=== PATIENT | male | born 1960 | race African-American/Black ===

== ENCOUNTER 2017-04-20 07:00 | Inpatient (IN) ==
[~2017-04-20 07:00] MED LIST: DEXTROSE 50% 25 GM/50 ML VIAL IV PRN; GLUCAGON 1 MG VIAL IM PRN
[2017-04-20] MEDS ORDERED: NITROGLYCERIN SL 0.4 MG TABLET SL PRN (09:15)
[2017-04-20] MEDS ORDERED: DEXTROSE 50% 25 GM/50 ML VIAL IV PRN (09:56)
[2017-04-20] MEDS ORDERED: GLUCAGON 1 MG VIAL IM PRN (09:56)
[2017-04-20 10:28] LABS: Basophils % 0.4 % (0.0-0.8); Eosinophils # 0.1 10*3/uL (0.0-0.87); Eosinophils % 1.4 % (0.00-10.9); Hematocrit 38.4 VOL% (42.0-52.0); Hemoglobin 13.3 GM/DL (14.0-18.0); Immature Granulocytes % 0.3 %; Immature Granulocytes Absolute 0.02 #; Lymphocytes # 2.2 10*3/uL (1.4-4.0); Lymphocytes % 27.9 % (21.2-54.2); Mean Corpuscular HGB Conc 34.6 GM/DL (32-36); Mean Corpuscular Hemoglobin 33 PG (27-34); Mean Corpuscular Volume 94.6 FL (87-102); Mean Platelet Volume 10.4 FL (9.6-12.0); Monocytes % 12.7 % (1.7-12.7); Neutrophils # 4.4 10*3/uL (1.4-7.4); Neutrophils % 57.3 % (38.7-73.9); Platelet Count 196 T/CUMM (130-400); Red Blood Count 4.06 MC/CUMM (3.8-5.5); Red Cell Distribution Width 13.7 % (9.3-17.3); White Blood Count 7.7 T/CUMM (4-12)
[2017-04-20 10:48] LABS: Allen Test Positive
[2017-04-20 10:49] LABS: ABG Base Excess -1.7 MMOL/L (-2.5-2.5); ABG Oxygen Saturation 96.7 % (95-100); ABG PCO2 38.3 MM HG (35-48); ABG PH 7.386 (7.35-7.45); ABG PO2 83.1 MM HG (80-95); ABG TCO2 20.1 MMOL/L (23-27)
[2017-04-20 10:58] LABS: Alanine Aminotransferase 29 U/L (16-61); Alkaline Phosphatase 102 U/L (45-117); Aspartate Amino Transferase 13 U/L (0-37); Bilirubin,Total < 0.39 MG/DL (0.2-1.0); Blood Urea Nitrogen 17 MG/DL (7-18); Calcium 8.2 MG/DL (8.5-10.1); Glucose 98 MG/DL (74-106); Osmolality,Calculated 278.5 MOS/KG (273-304); Potassium 3.8 MMOL/L (3.5-5.1); Sodium 139 MMOL/L (136-145); Total Protein 6.6 G/DL (6.4-8.3)
[2017-04-20] MEDS: LISINOPRIL 20 MG TABLET PO SCH (11:28)
[2017-04-20] MEDS: ASPIRIN EC 81 MG TABLET PO SCH (11:29)
[2017-04-20] MEDS: amLODIPine 10 MG TABLET PO SCH (11:29)
[2017-04-20] MEDS: CARVEDILOL 25 MG TABLET PO SCH ×2 (11:29→20:43)
[2017-04-20] MEDS: NICOTINE 21 MG/24 HR PATCH TRANSDERM SCH (11:30)
[2017-04-20] MEDS: CHLORHEXIDINE 0.12% ORAL RINSE 60 ML BOTTLE SWISH/SPIT SCH ×2 (11:31→20:43)
[2017-04-20] MEDS: ALBUTEROL/IPRATROPIUM 3 ML NEB RESP TX SCH ×2 (14:35→19:55)
[2017-04-20] MEDS ORDERED: LORazepam 1 MG TABLET PO ONE (15:07)
[2017-04-20] MEDS ORDERED: FAMOTIDINE 20 MG TABLET PO ONE (15:07)
[2017-04-20] MEDS: CHLORHEXIDINE 4% SOLN 118 ML BOTTLE TOP SCH ×2 (17:35→20:45)
[2017-04-20] MEDS ORDERED: ATORVASTATIN 80 MG TABLET PO SCH (21:00)
[2017-04-20] MEDS: NON-FORMULARY MEDICATION (Methylprednisolone Dosepak 4 MG) PO SCH (21:32)
[2017-04-20] MEDS: AZITHROMYCIN 250 MG TABLET PO SCH (21:32)
[2017-04-21] MEDS: ALBUTEROL/IPRATROPIUM 3 ML NEB RESP TX SCH ×2 (00:45→07:11)
[2017-04-21] MEDS ORDERED: PAPAVERINE 60 MG/2 ML VIAL ONE ×2 (04:35→15:06)
[2017-04-21] MEDS ORDERED: VANCOMYCIN 1,000 MG VIAL ONE ×2 (04:36→15:06)
[2017-04-21] MEDS ORDERED: ALBUTEROL/IPRATROPIUM 3 ML NEB RESP TX ONE (05:00)
[2017-04-21] MEDS ORDERED: FAMOTIDINE 20 MG TABLET PO ONE (05:30)
[2017-04-21] MEDS ORDERED: LORazepam 1 MG TABLET PO ONE (05:30)
[2017-04-21] MEDS: amLODIPine 10 MG TABLET PO SCH ×2 (05:53→10:45)
[2017-04-21] MEDS: CARVEDILOL 25 MG TABLET PO SCH ×2 (05:54→10:45)
[2017-04-21] MEDS: CHLORHEXIDINE 0.12% ORAL RINSE 60 ML BOTTLE SWISH/SPIT SCH ×3 (05:55→20:54)
[2017-04-21] MEDS ORDERED: CEFUROXIME INJ 1,500 MG in SODIUM CHLORIDE 0.9% 50 ML IV ONE (06:00)
[2017-04-21 07:44] LABS: ABG Base Excess -1.7 MMOL/L (-2.5-2.5); ABG PCO2 32.6 MM HG (35-48); ABG PH 7.433 (7.35-7.45); ABG TCO2 19.2 MMOL/L (23-27); Glucose Heart Surgery 102 MG/DL (74-106); Hematocrit Heart Surgery 36.7 PERCENT (42-52); Hemoglobin Heart Surgery 11.9 G/DL (14.0-18.0); Ionized Calcium Arterial 1.11 MMOL/L (1.21-1.46); PCO2 Patient Temp Arterial 32.6 MMHG; PH Patient Temp Arterial 7.433; Patient Temperature 37 CELCIUS; Potassium Heart/CVR 3.7 MMOL/L (3.5-5.1); Sodium Heart/CVR 137 MMOL/L (135-145)
[2017-04-21 08:07] LABS: Apearance,Urine CLEAR (Clear); Bilirubin,Urine Negative (Negative); Blood, Urine Small mg/dL (Negative); Glucose,Urine (UA) Negative (Negative); Ketones,Urine Negative (Negative); Mucus,Urine Occasional /LPF (Occasional); Nitrite,Urine Negative (Negative); Protein,Urine Negative; Urine Color Straw (Yellow); Urine Specific Gravity 1.005 (1.001-1.035); Urine Urobilinogen < 2.0 EU/DL (0.2-1.0)
[2017-04-21 08:55] LABS: Hemoglobin Heart Surgery 9.1 G/DL (14.0-18.0); PCO2 Patient Temp Venous 38.8 MM HG; PH Patient Temp Venous 7.415; PO2 Patient Temp Venous 43.6 MM HG; Potassium Heart/CVR 3.7 MMOL/L (3.5-5.1); VBG Base Excess -0.3 MEQ/L (0-4); VBG HCO3 24.8 MEQ/L (24-28); VBG Oxygen Saturation 85.8 %; VBG PCO2 42.3 MMHG (41-51); VBG PH 7.386; VBG PO2 50.2 MMHG (17-40)
[2017-04-21 09:22] LABS: Hemoglobin Heart Surgery 9.4 G/DL (14.0-18.0); PCO2 Patient Temp Venous 32.4 MM HG; PH Patient Temp Venous 7.497; PO2 Patient Temp Venous 35.8 MM HG; Potassium Heart/CVR 4.1 MMOL/L (3.5-5.1); VBG Base Excess 1.3 MEQ/L (0-4); VBG HCO3 25.3 MEQ/L (24-28); VBG Oxygen Saturation 82.9 %; VBG PH 7.452; VBG PO2 44.2 MMHG (17-40)
[2017-04-21] MEDS ORDERED: NITROPRUSSIDE 50 MG/2 ML VIAL ONE (09:40)
[2017-04-21] MEDS ORDERED: CALCIUM CHLORIDE 1,000 MG/10 ML SYRINGE IV ONE (09:41)
[2017-04-21] MEDS ORDERED: POTASSIUM CHLORIDE RIDER 100 ML IV ONE (09:41)
[2017-04-21] MEDS ORDERED: PHENYLEPHRINE DRIP 40 MG/250 ML PREMIX IV ONE (09:41)
[2017-04-21] MEDS ORDERED: ATROPINE 1 MG/1 ML VIAL ONE (09:42)
[2017-04-21] MEDS ORDERED: SODIUM BICARBONATE 50 MEQ/50 ML SYRINGE IV ONE ×2 (09:42→10:52)
[2017-04-21] MEDS ORDERED: EPINEPHrine 1 MG/10 ML SYRINGE ONE (09:42)
[2017-04-21] MEDS ORDERED: ALBUMIN 5% 12.5 GM/250 ML VIAL IV ONE (09:43)
[2017-04-21 09:52] LABS: Hemoglobin Heart Surgery 9.5 G/DL (14.0-18.0); PCO2 Patient Temp Venous 29.6 MM HG; PH Patient Temp Venous 7.519; PO2 Patient Temp Venous 35.7 MM HG; Potassium Heart/CVR 4.7 MMOL/L (3.5-5.1); VBG Base Excess 0.8 MEQ/L (0-4); VBG HCO3 24.2 MEQ/L (24-28); VBG Oxygen Saturation 85.3 %; VBG PCO2 33.8 MMHG (41-51); VBG PH 7.473; VBG PO2 44.1 MMHG (17-40)
[2017-04-21 10:44] LABS: ABG Base Excess -0.6 MMOL/L (-2.5-2.5); ABG HCO3 23.5 MMOL/L (20-26); ABG Oxygen Saturation 99.1 % (95-100); ABG PCO2 36.7 MM HG (35-48); ABG PH 7.425 (7.35-7.45); ABG PO2 334.6 MM HG (80-95); ABG TCO2 24.7 MMOL/L (23-27); Glucose Heart Surgery 151 MG/DL (74-106); Hemoglobin Heart Surgery 9.7 G/DL (14.0-18.0); Ionized Calcium Arterial 1.26 MMOL/L (1.21-1.46); PCO2 Patient Temp Arterial 36.7 MMHG; PH Patient Temp Arterial 7.425; PO2 Patient Temp Arterial 334.6 MM HG; Patient Temperature 37 CELCIUS; Sodium Heart/CVR 131 MMOL/L (135-145)
[2017-04-21] MEDS: SODIUM CHLORIDE 0.9% 1,000 ML IV SCH ×2 (10:44→10:46)
[2017-04-21] MEDS: ASPIRIN EC 81 MG TABLET PO SCH (10:45)
[2017-04-21] MEDS: NICOTINE 21 MG/24 HR PATCH TRANSDERM SCH (10:45)
[2017-04-21] MEDS: LISINOPRIL 20 MG TABLET PO SCH (10:45)
[2017-04-21] MEDS: AZITHROMYCIN 250 MG TABLET PO SCH (10:47)
[2017-04-21] MEDS: CHLORHEXIDINE 4% SOLN 118 ML BOTTLE TOP SCH (10:47)
[2017-04-21] MEDS: NON-FORMULARY MEDICATION (Methylprednisolone Dosepak 4 MG) PO SCH (10:47)
[2017-04-21] MEDS ORDERED: DEXTROSE 5% KCL 20 MEQ 20 MEQ/1,000 ML BAG IV ONE (10:51)
[2017-04-21] MEDS ORDERED: PROTAMINE SULFATE 250 MG/25 ML VIAL IV ONE (10:52)
[2017-04-21] MEDS ORDERED: MANNITOL 12.5 GM/50 ML VIAL IV ONE (10:52)
[2017-04-21] MEDS ORDERED: HEPARIN 10,000 UNIT/10 ML VIAL ONE (10:52)
[2017-04-21] MEDS ORDERED: methylPREDNISolone SOD SUC 1,000 MG/8 ML VIAL ONE (10:52)
[2017-04-21] MEDS ORDERED: ALBUMIN 25% 25 GM/100 ML VIAL IV ONE (10:52)
[2017-04-21] MEDS ORDERED: FUROSEMIDE 20 MG/2 ML VIAL ONE (10:52)
[2017-04-21] MEDS ORDERED: MAGNESIUM SULFATE 1 GM/2 ML VIAL ONE (10:52)
[2017-04-21] MEDS ORDERED: POTASSIUM CHLORIDE 20 MEQ/10 ML VIAL ONE (10:54)
[2017-04-21] MEDS ORDERED: THROMBIN TOPICAL (RECOMBINANT) 5,000 UNIT VIAL TOP ONE (11:06)
[2017-04-21] MEDS ORDERED: INSULIN REGULAR DRIP 100 ML IV ONE (11:19)
[2017-04-21] MEDS ORDERED: DOBUTamine 500 MG/250 ML PREMIX IV ONE ×2 (11:37→11:57)
[2017-04-21] MEDS: DOBUTamine 500 MG/250 ML PREMIX IV SCH (11:40)
[2017-04-21] MEDS: SODIUM CHLORIDE 0.45% 1,000 ML IV SCH ×2 (11:40→12:42)
[2017-04-21] MEDS ORDERED: PROTAMINE SULFATE 50 MG/5 ML VIAL IV ONE ×3 (11:50→17:30)
[2017-04-21] MEDS ORDERED: SUFentanil 250 MCG/5 ML AMP ONE (11:55)
[2017-04-21] MEDS: ALBUMIN 5% 12.5 GM in PREMIX 1 EACH IV PRN ×3 (11:55→20:22)
[2017-04-21] MEDS ORDERED: VECURONIUM 10 MG VIAL IV ONE ×2 (11:56→16:51)
[2017-04-21] MEDS ORDERED: ETOMIDATE 20 MG/10 ML VIAL IV ONE (11:56)
[2017-04-21] MEDS ORDERED: MIDAZOLAM 10 MG/2 ML VIAL ONE ×2 (11:56→16:51)
[2017-04-21] MEDS ORDERED: CALCIUM CHLORIDE 1,000 MG/10 ML VIAL IV ONE ×2 (11:57→16:50)
[2017-04-21] MEDS ORDERED: PHENYLEPHRINE DRIP 20 MG/250 ML PREMIX IV ONE (11:57)
[2017-04-21] MEDS ORDERED: HEPARIN/NACL 0.9% 2 UNITS/ML 500 ML IV ONE (11:57)
[2017-04-21] MEDS ORDERED: SODIUM CHLORIDE 0.9% 250 ML IV ONE (11:58)
[2017-04-21] MEDS ORDERED: SODIUM CHLORIDE 0.9% 1,000 ML IV ONE (11:58)
[2017-04-21] MEDS ORDERED: NITROGLYCERIN DRIP 50 MG/250 ML BOTTLE IV ONE (11:58)
[2017-04-21] MEDS ORDERED: SEVOFLURANE 1 UNIT/15 MINUTE INH ONE ×2 (11:58→16:50)
[2017-04-21] MEDS ORDERED: LACTATED RINGERS 1,000 ML IV ONE ×2 (11:58→16:51)
[2017-04-21] MEDS: LACTATED RINGERS 1,000 ML IV PRN ×3 (12:00→14:05)
[2017-04-21] MEDS ORDERED: MAGNESIUM SULF RIDER 4 GM in PREMIX 1 EACH IV PRN (12:01)
[2017-04-21] MEDS ORDERED: LACTATED RINGERS 250 ML IV PRN (12:01)
[2017-04-21] MEDS ORDERED: MORPHINE 10 MG/1 ML VIAL IV PRN (12:01)
[2017-04-21] MEDS ORDERED: INSULIN REGULAR 100 UNIT/ML IV PRN (12:01)
[2017-04-21] MEDS ORDERED: DEXTROSE 50% 25 GM/50 ML VIAL IV PRN ×3 (12:01→21:07)
[2017-04-21] MEDS ORDERED: INSULIN REGULAR DRIP 100 ML IV SCH (12:01)
[2017-04-21] MEDS ORDERED: MIDAZOLAM 10 MG/2 ML VIAL IV PRN (12:01)
[2017-04-21] MEDS ORDERED: ACETAMINOPHEN 650 MG SUPP RECTAL PRN (12:01)
[2017-04-21] MEDS ORDERED: POTASSIUM CHLORIDE RIDER 10 MEQ in PREMIX 1 EACH IV PRN (12:01)
[2017-04-21] MEDS ORDERED: CALCIUM CHLORIDE 1,000 MG/10 ML SYRINGE IV PRN (12:01)
[2017-04-21] MEDS ORDERED: PHENYLEPHRINE DRIP 40 MG/250 ML PREMIX IV PRN (12:01)
[2017-04-21] MEDS ORDERED: INSULIN REGULAR 100 UNIT/ML IV ONE ×2 (12:01→13:00)
[2017-04-21] MEDS ORDERED: NITROPRUSSIDE 100 MG in DEXTROSE 5% 250 ML IV PRN (12:01)
[2017-04-21] MEDS ORDERED: POTASSIUM CHLORIDE RIDER 20 MEQ in PREMIX 1 EACH IV PRN (12:01)
[2017-04-21] MEDS ORDERED: VECURONIUM 10 MG VIAL IV PRN ×2 (12:01)
[2017-04-21 12:23] LABS: ABG Base Excess -1.5 MMOL/L (-2.5-2.5); ABG HCO3 23.2 MMOL/L (20-26); ABG Oxygen Saturation 98.1 % (95-100); ABG PCO2 36.2 MM HG (35-48); ABG PH 7.408 (7.35-7.45); ABG PO2 98.5 MM HG (80-95); Basophils % 0.3 % (0.0-0.8); Eosinophils % 0.3 % (0.00-10.9); Glucose Heart Surgery 116 MG/DL (74-106); Hematocrit 25.8 VOL% (42.0-52.0); Hematocrit Heart Surgery 28.1 PERCENT (42-52); Hemoglobin 9.1 GM/DL (14.0-18.0); Immature Granulocytes % 0.7 %; Immature Granulocytes Absolute 0.08 #; Lymphocytes # 1.1 10*3/uL (1.4-4.0); Lymphocytes % 9.7 % (21.2-54.2); Mean Corpuscular HGB Conc 35.3 GM/DL (32-36); Mean Corpuscular Hemoglobin 34 PG (27-34); Mean Corpuscular Volume 95.2 FL (87-102); Mean Platelet Volume 10.6 FL (9.6-12.0); Monocytes # 0.5 10*3/uL (0.11-0.8); Monocytes % 3.9 % (1.7-12.7); Neutrophils % 85.1 % (38.7-73.9); Platelet Count 123 T/CUMM (130-400); Potassium Heart/CVR 4.2 MMOL/L (3.5-5.1); Red Blood Count 2.71 MC/CUMM (3.8-5.5); Red Cell Distribution Width 13.8 % (9.3-17.3); White Blood Count 11.7 T/CUMM (4-12)
[2017-04-21 12:28] LABS: INR 1.3; PT Patient Result 13.9 SECS
[2017-04-21 12:34] LABS: Partial Thromboplastin Time 40.3 SECS (0-40)
[2017-04-21 12:56] LABS: Albumin 2.6 G/DL (3.4-5.0); Bilirubin,Total 0.6 MG/DL (0.2-1.0); Calcium 8.4 MG/DL (8.5-10.1); Magnesium 1.9 MG/DL (1.8-2.4); Osmolality,Calculated 275.7 MOS/KG (273-304); Potassium 4.3 MMOL/L (3.5-5.1); Total Protein 4.7 G/DL (6.4-8.3)
[2017-04-21 13:34] LABS: CKMB % 8.8 %
[2017-04-21 13:36] LABS: Troponin I Only 5.1 NG/ML (0.00-0.045)
[2017-04-21 14:03] LABS: ABG Base Excess 0.4 MMOL/L (-2.5-2.5); ABG Oxygen Saturation 97.9 % (95-100); ABG PCO2 34.8 MM HG (35-48); ABG PH 7.457 (7.35-7.45); ABG PO2 113.3 MM HG (80-95); ABG TCO2 25.1 MMOL/L (23-27); Glucose Heart Surgery 145 MG/DL (74-106); Hemoglobin Heart Surgery 10.3 G/DL (14.0-18.0); Potassium Heart/CVR 4.9 MMOL/L (3.5-5.1)
[2017-04-21 15:41] LABS: ABG Base Excess 0.7 MMOL/L (-2.5-2.5); ABG HCO3 25.1 MMOL/L (20-26); ABG Oxygen Saturation 99.9 % (95-100); ABG PCO2 34.4 MM HG (35-48); ABG PH 7.457 (7.35-7.45); ABG TCO2 22.5 MMOL/L (23-27); Glucose Heart Surgery 145 MG/DL (74-106); Hematocrit Heart Surgery 26.1 PERCENT (42-52); Hemoglobin Heart Surgery 8.4 G/DL (14.0-18.0); Ionized Calcium Arterial 1.18 MMOL/L (1.21-1.46); PCO2 Patient Temp Arterial 34.4 MMHG; PH Patient Temp Arterial 7.457; Patient Temperature 37 CELCIUS; Potassium Heart/CVR 4.9 MMOL/L (3.5-5.1); Sodium Heart/CVR 133 MMOL/L (135-145)
[2017-04-21] MEDS: KETOROLAC 30 MG/1 ML VIAL IV SCH ×2 (18:11→18:13)
[2017-04-21] MEDS: MIDAZOLAM 2 MG/2 ML VIAL IV PRN ×4 (19:27→23:00)
[2017-04-21] MEDS: CEFUROXIME INJ 1,500 MG in SYRINGE 1 EACH IV SCH (19:35)
[2017-04-21 19:47] LABS: ABG Base Excess 0.5 MMOL/L (-2.5-2.5); ABG HCO3 24.9 MMOL/L (20-26); ABG Oxygen Saturation 98.9 % (95-100); ABG PH 7.431 (7.35-7.45); Glucose Heart Surgery 164 MG/DL (74-106); Hematocrit Heart Surgery 24.7 PERCENT (42-52); Hemoglobin Heart Surgery 7.9 G/DL (14.0-18.0); Potassium Heart/CVR 4.8 MMOL/L (3.5-5.1)
[2017-04-21 20:20] LABS: CKMB % 3.9 %
[2017-04-21 20:29] LABS: Troponin I Only 5.75 NG/ML (0.00-0.045)
[2017-04-21] MEDS: MAGNESIUM SULF RIDER 2 GM in PREMIX 1 EACH IV PRN ×2 (20:54→23:00)
[2017-04-21] MEDS ORDERED: GLUCAGON 1 MG VIAL IM PRN (21:07)
[2017-04-21 22:27] LABS: ABG PCO2 33.9 MM HG (35-48); ABG PH 7.456 (7.35-7.45)
[2017-04-21 22:28] LABS: ABG Base Excess -0.2 MMOL/L (-2.5-2.5); ABG HCO3 23.4 MMOL/L (20-26); ABG Oxygen Saturation 97.9 % (95-100); ABG PO2 120.8 MM HG (80-95); ABG TCO2 24.4 MMOL/L (23-27); Glucose Heart Surgery 166 MG/DL (74-106); Hemoglobin Heart Surgery 10.1 G/DL (14.0-18.0); Potassium Heart/CVR 4.8 MMOL/L (3.5-5.1)
[2017-04-21] MEDS: INSULIN REGULAR 100 UNIT/ML SUBCUT SCH (22:46)
[2017-04-21] MEDS ORDERED: FUROSEMIDE 40 MG/4 ML VIAL IV ONE (23:09)
[2017-04-21] MEDS: MORPHINE 2 MG/1 ML SYRINGE IV PRN (23:20)
[2017-04-22 00:17] LABS: ABG Base Excess -0.2 MMOL/L (-2.5-2.5); ABG HCO3 24.3 MMOL/L (20-26); ABG Oxygen Saturation 98.7 % (95-100); ABG PCO2 41.8 MM HG (35-48); ABG PH 7.383 (7.35-7.45); ABG TCO2 22.5 MMOL/L (23-27); Glucose Heart Surgery 154 MG/DL (74-106); Hematocrit Heart Surgery 32.8 PERCENT (42-52); Hemoglobin Heart Surgery 10.6 G/DL (14.0-18.0); Potassium Heart/CVR 4.5 MMOL/L (3.5-5.1)
[2017-04-22] MEDS: KETOROLAC 30 MG/1 ML VIAL IV SCH ×4 (01:04→17:07)
[2017-04-22 01:29] LABS: ABG Base Excess 0.7 MMOL/L (-2.5-2.5); ABG Oxygen Saturation 96.8 % (95-100); ABG PCO2 38.6 MM HG (35-48); ABG PH 7.421 (7.35-7.45); ABG PO2 78.5 MM HG (80-95); ABG TCO2 22.7 MMOL/L (23-27); Glucose Heart Surgery 137 MG/DL (74-106); Hematocrit Heart Surgery 31.7 PERCENT (42-52); Hemoglobin Heart Surgery 10.2 G/DL (14.0-18.0); Potassium Heart/CVR 4.5 MMOL/L (3.5-5.1)
[2017-04-22 01:48] LABS: ABG Base Excess 0.1 MMOL/L (-2.5-2.5); ABG HCO3 24.5 MMOL/L (20-26); ABG Oxygen Saturation 96.8 % (95-100); ABG PCO2 36.2 MM HG (35-48); ABG PH 7.431 (7.35-7.45); ABG PO2 78.7 MM HG (80-95); ABG TCO2 21.8 MMOL/L (23-27); Glucose Heart Surgery 133 MG/DL (74-106); Hematocrit Heart Surgery 31.6 PERCENT (42-52); Hemoglobin Heart Surgery 10.2 G/DL (14.0-18.0); Potassium Heart/CVR 4.5 MMOL/L (3.5-5.1)
[2017-04-22] MEDS: INSULIN REGULAR 100 UNIT/ML SUBCUT SCH ×7 (01:53→23:47)
[2017-04-22 09:54] LABS: Albumin 3.1 G/DL (3.4-5.0); Bilirubin,Direct 0.22 MG/DL (0.0-0.20); Calcium 8.4 MG/DL (8.5-10.1); Magnesium 2.5 MG/DL (1.8-2.4); Osmolality,Calculated 281.4 MOS/KG (273-304); Potassium 4.6 MMOL/L (3.5-5.1); Total Protein 5.5 G/DL (6.4-8.3)
[2017-04-22 09:54] LABS: CKMB % 2.9 %
[2017-04-22] MEDS: CHLORHEXIDINE 0.12% ORAL RINSE 60 ML BOTTLE SWISH/SPIT SCH ×2 (09:59→20:10)
[2017-04-22] MEDS: CEFUROXIME INJ 1,500 MG in SYRINGE 1 EACH IV SCH ×2 (09:59→20:09)
[2017-04-22 10:02] LABS: Hematocrit 28.4 VOL% (42.0-52.0); Hemoglobin 10.2 GM/DL (14.0-18.0); Immature Granulocytes % 0.3 %; Immature Granulocytes Absolute 0.03 #; Lymphocytes # 0.6 10*3/uL (1.4-4.0); Lymphocytes % 5.8 % (21.2-54.2); Mean Corpuscular HGB Conc 35.9 GM/DL (32-36); Mean Corpuscular Hemoglobin 32 PG (27-34); Mean Corpuscular Volume 88.2 FL (87-102); Mean Platelet Volume 10.6 FL (9.6-12.0); Monocytes # 0.6 10*3/uL (0.11-0.8); Monocytes % 5.7 % (1.7-12.7); Neutrophils # 9.5 10*3/uL (1.4-7.4); Neutrophils % 88.2 % (38.7-73.9); Platelet Count 92 T/CUMM (130-400); Red Blood Count 3.22 MC/CUMM (3.8-5.5); Red Cell Distribution Width 14.6 % (9.3-17.3); White Blood Count 10.8 T/CUMM (4-12)
[2017-04-22 10:11] LABS: Troponin I Only 8.59 NG/ML (0.00-0.045)
[2017-04-22] MEDS ORDERED: ALBUTEROL/IPRATROPIUM 3 ML NEB RESP TX ONE ×2 (10:13→10:14)
[2017-04-22] MEDS ORDERED: GLUCAGON 1 MG VIAL IM PRN (10:17)
[2017-04-22] MEDS ORDERED: DEXTROSE 50% 25 GM/50 ML VIAL IV PRN (10:17)
[2017-04-22] MEDS: amLODIPine 10 MG TABLET PO SCH (10:24)
[2017-04-22] MEDS: CARVEDILOL 12.5 MG TABLET PO SCH ×2 (10:24→20:07)
[2017-04-22] MEDS ORDERED: LISINOPRIL 20 MG TABLET PO SCH (10:30)
[2017-04-22 10:49] LABS: ABG Base Excess 0.9 MMOL/L (-2.5-2.5); ABG HCO3 25.2 MMOL/L (20-26); ABG Oxygen Saturation 97.7 % (95-100); ABG PCO2 36.9 MM HG (35-48); ABG PH 7.436 (7.35-7.45); ABG PO2 86.8 MM HG (80-95); ABG TCO2 22.6 MMOL/L (23-27); Glucose Heart Surgery 129 MG/DL (74-106); Hematocrit Heart Surgery 31.1 PERCENT (42-52); Potassium Heart/CVR 4.5 MMOL/L (3.5-5.1)
[2017-04-22 10:59] LABS: Platelet Estimate Decreased
[2017-04-22 11:00] LABS: Hypochromasia 1+
[2017-04-22 11:07] LABS: ABG Base Excess 1.6 MMOL/L (-2.5-2.5); ABG HCO3 25.8 MMOL/L (20-26); ABG Oxygen Saturation 99.3 % (95-100); ABG PCO2 37.2 MM HG (35-48); ABG PH 7.444 (7.35-7.45); ABG TCO2 23.1 MMOL/L (23-27); Glucose Heart Surgery 121 MG/DL (74-106); Potassium Heart/CVR 4.4 MMOL/L (3.5-5.1)
[2017-04-22] MEDS: SODIUM CHLORIDE 0.45% 1,000 ML IV SCH ×2 (11:15→11:30)
[2017-04-22 11:18] LABS: ABG Base Excess 1.5 MMOL/L (-2.5-2.5); ABG HCO3 25.8 MMOL/L (20-26); ABG Oxygen Saturation 98.4 % (95-100); ABG PCO2 40.4 MM HG (35-48); ABG PH 7.418 (7.35-7.45); ABG TCO2 23.6 MMOL/L (23-27); Glucose Heart Surgery 121 MG/DL (74-106); Hematocrit Heart Surgery 31.3 PERCENT (42-52); Hemoglobin Heart Surgery 10.1 G/DL (14.0-18.0); Potassium Heart/CVR 4.4 MMOL/L (3.5-5.1)
[2017-04-22] MEDS: DOBUTamine 500 MG/250 ML PREMIX IV SCH (11:32)
[2017-04-22 11:42] LABS: ABG HCO3 26.1 MMOL/L (20-26); ABG Oxygen Saturation 93.8 % (95-100); ABG PCO2 42.6 MM HG (35-48); ABG PH 7.408 (7.35-7.45); ABG PO2 68.5 MM HG (80-95); ABG TCO2 24.4 MMOL/L (23-27); Glucose Heart Surgery 117 MG/DL (74-106); Hematocrit Heart Surgery 31.5 PERCENT (42-52); Hemoglobin Heart Surgery 10.2 G/DL (14.0-18.0); Potassium Heart/CVR 4.3 MMOL/L (3.5-5.1)
[2017-04-22 13:15] LABS: CKMB % 2.2 %
[2017-04-22 13:19] LABS: Troponin I Only 9.84 NG/ML (0.00-0.045)
[2017-04-22] MEDS: MORPHINE 2 MG/1 ML SYRINGE IV PRN (20:13)
[2017-04-22] MEDS ORDERED: INSULIN REGULAR 100 UNIT/ML SUBCUT SCH ×2 (20:57→21:30)
[2017-04-23] MEDS ORDERED: INSULIN REGULAR 100 UNIT/ML SUBCUT SCH
[2017-04-23] MEDS: MORPHINE 2 MG/1 ML SYRINGE IV PRN (03:45)
[2017-04-23] MEDS: ONDANSETRON 4 MG/2 ML VIAL IV PRN ×2 (03:49→10:30)
[2017-04-23 04:05] LABS: Basophils % 0.1 % (0.0-0.8); Hematocrit 28.3 VOL% (42.0-52.0); Immature Granulocytes % 0.7 %; Immature Granulocytes Absolute 0.16 #; Lymphocytes # 0.8 10*3/uL (1.4-4.0); Lymphocytes % 3.5 % (21.2-54.2); Mean Corpuscular HGB Conc 35.3 GM/DL (32-36); Mean Corpuscular Hemoglobin 32 PG (27-34); Mean Corpuscular Volume 89.8 FL (87-102); Mean Platelet Volume 11.4 FL (9.6-12.0); Monocytes # 1.3 10*3/uL (0.11-0.8); Monocytes % 5.5 % (1.7-12.7); Neutrophils # 21.4 10*3/uL (1.4-7.4); Neutrophils % 90.2 % (38.7-73.9); Platelet Count 77 T/CUMM (130-400); Red Blood Count 3.15 MC/CUMM (3.8-5.5); Red Cell Distribution Width 14.5 % (9.3-17.3); White Blood Count 23.7 T/CUMM (4-12)
[2017-04-23 04:38] LABS: Albumin 3.2 G/DL (3.4-5.0); Bilirubin,Direct 0.19 MG/DL (0.0-0.20); Bilirubin,Total 0.5 MG/DL (0.2-1.0); Magnesium 2.3 MG/DL (1.8-2.4); Osmolality,Calculated 273.2 MOS/KG (273-304); Potassium 4.7 MMOL/L (3.5-5.1); Total Protein 5.7 G/DL (6.4-8.3)
[2017-04-23 04:59] LABS: Lymphocytes 2 % (20-55); Platelet Estimate Adequate; Segmented Neutrophils 95 % (50-85); Total Cells Counted 100
[2017-04-23] MEDS: INSULIN REGULAR 100 UNIT/ML SUBCUT SCH ×2 (05:21→07:34)
[2017-04-23] MEDS: CHLORHEXIDINE 0.12% ORAL RINSE 60 ML BOTTLE SWISH/SPIT SCH ×3 (08:28→22:34)
[2017-04-23] MEDS: ATORVASTATIN 80 MG TABLET PO SCH (08:28)
[2017-04-23] MEDS: amLODIPine 10 MG TABLET PO SCH (08:28)
[2017-04-23] MEDS: CARVEDILOL 12.5 MG TABLET PO SCH ×2 (08:28→22:33)
[2017-04-23] MEDS ORDERED: ALBUTEROL/IPRATROPIUM 3 ML NEB RESP TX ONE (08:42)
[2017-04-23] MEDS: LISINOPRIL 20 MG TABLET PO SCH (09:19)
[2017-04-23] MEDS ORDERED: GLUCAGON 1 MG VIAL IM PRN ×2 (11:37)
[2017-04-23] MEDS ORDERED: SODIUM CHLOR 0.45% KCL 20 MEQ 20 MEQ/1,000 ML BAG IV SCH (11:37)
[2017-04-23] MEDS ORDERED: POTASSIUM CHLORIDE 20 MEQ TABLET PO PRN (11:37)
[2017-04-23] MEDS ORDERED: ACETAMINOPHEN 325 MG TABLET PO PRN (11:37)
[2017-04-23] MEDS ORDERED: ALUMINUM/MAGNES/SIMETH MAX STR 30 ML UDCUP PO PRN (11:37)
[2017-04-23] MEDS ORDERED: MAGNESIUM HYDROXIDE SUSP 30 ML UDCUP PO PRN (11:37)
[2017-04-23] MEDS ORDERED: MAGNESIUM SULF RIDER 4 GM in PREMIX 1 EACH IV PRN (11:37)
[2017-04-23] MEDS ORDERED: MAGNESIUM SULF RIDER 2 GM in PREMIX 1 EACH IV PRN (11:37)
[2017-04-23] MEDS ORDERED: ONDANSETRON 4 MG/2 ML VIAL IV PRN (11:37)
[2017-04-23] MEDS ORDERED: DEXTROSE 50% 25 GM/50 ML VIAL IV PRN ×2 (11:37)
[2017-04-23] MEDS: FERROUS SULFATE 325 MG TABLET PO SCH (12:33)
[2017-04-23] MEDS: ASPIRIN EC 325 MG TABLET PO SCH (12:33)
[2017-04-23] MEDS: DOCUSATE SODIUM 100 MG CAPSULE PO SCH (12:33)
[2017-04-23] MEDS: PANTOPRAZOLE 40 MG TABLET PO SCH (12:33)
[2017-04-23] MEDS: KETOROLAC 30 MG/1 ML VIAL IV SCH ×3 (12:33→23:55)
[2017-04-23] MEDS: oxyCODONE/ACETAMINOPHEN 5-325 MG TABLET PO PRN (14:57)
[2017-04-23] MEDS: ZALEPLON 5 MG CAPSULE PO PRN (22:33)
[2017-04-24] MEDS: oxyCODONE/ACETAMINOPHEN 5-325 MG TABLET PO PRN ×3 (03:03→14:00)
[2017-04-24 05:57] LABS: Hematocrit 28.1 VOL% (42.0-52.0); Hemoglobin 9.7 GM/DL (14.0-18.0); Immature Granulocytes % 0.9 %; Immature Granulocytes Absolute 0.19 #; Lymphocytes # 1.1 10*3/uL (1.4-4.0); Lymphocytes % 5.2 % (21.2-54.2); Mean Corpuscular HGB Conc 34.5 GM/DL (32-36); Mean Corpuscular Hemoglobin 32 PG (27-34); Mean Corpuscular Volume 91.5 FL (87-102); Mean Platelet Volume 12.2 FL (9.6-12.0); Monocytes # 1.4 10*3/uL (0.11-0.8); Monocytes % 6.8 % (1.7-12.7); Neutrophils # 18.2 10*3/uL (1.4-7.4); Neutrophils % 87.1 % (38.7-73.9); Red Blood Count 3.07 MC/CUMM (3.8-5.5); Red Cell Distribution Width 14.1 % (9.3-17.3); White Blood Count 20.9 T/CUMM (4-12)
[2017-04-24] MEDS: KETOROLAC 30 MG/1 ML VIAL IV SCH ×4 (05:57→23:00)
[2017-04-24] MEDS ORDERED: FUROSEMIDE 40 MG/4 ML VIAL IV ONE (06:00)
[2017-04-24 06:21] LABS: Platelet Count 67 T/CUMM (130-400)
[2017-04-24 06:32] LABS: Platelet Estimate Decreased
[2017-04-24 06:35] LABS: Alanine Aminotransferase 42 U/L (16-61); Albumin 2.9 G/DL (3.4-5.0); Alkaline Phosphatase 90 U/L (45-117); Aspartate Amino Transferase 41 U/L (0-37); Bilirubin,Indirect 0.7 MG/DL (0.0-1.0); Blood Urea Nitrogen 24 MG/DL (7-18); Calcium 8.1 MG/DL (8.5-10.1); Glucose 102 MG/DL (74-106); Magnesium 2.2 MG/DL (1.8-2.4); Osmolality,Calculated 271.2 MOS/KG (273-304); Sodium 134 MMOL/L (136-145); Total Protein 5.5 G/DL (6.4-8.3)
[2017-04-24] MEDS: amLODIPine 10 MG TABLET PO SCH (09:54)
[2017-04-24] MEDS: LISINOPRIL 20 MG TABLET PO SCH (09:54)
[2017-04-24] MEDS: CHLORHEXIDINE 0.12% ORAL RINSE 60 ML BOTTLE SWISH/SPIT SCH ×2 (09:55→21:58)
[2017-04-24] MEDS: PANTOPRAZOLE 40 MG TABLET PO SCH (09:55)
[2017-04-24] MEDS: ATORVASTATIN 80 MG TABLET PO SCH (09:55)
[2017-04-24] MEDS: CARVEDILOL 12.5 MG TABLET PO SCH ×2 (09:55→21:58)
[2017-04-24] MEDS: FERROUS SULFATE 325 MG TABLET PO SCH (09:55)
[2017-04-24] MEDS: DOCUSATE SODIUM 100 MG CAPSULE PO SCH (09:55)
[2017-04-24] MEDS: ASPIRIN EC 325 MG TABLET PO SCH (09:55)
[2017-04-25] MEDS: ZALEPLON 5 MG CAPSULE PO PRN ×2 (02:26→21:41)
[2017-04-25] MEDS: oxyCODONE/ACETAMINOPHEN 5-325 MG TABLET PO PRN ×2 (02:26→09:09)
[2017-04-25 04:51] LABS: Eosinophils % 0.1 % (0.00-10.9); Hematocrit 27.6 VOL% (42.0-52.0); Hemoglobin 9.6 GM/DL (14.0-18.0); Immature Granulocytes % 0.6 %; Lymphocytes # 1.4 10*3/uL (1.4-4.0); Lymphocytes % 8.7 % (21.2-54.2); Mean Corpuscular HGB Conc 34.8 GM/DL (32-36); Mean Corpuscular Hemoglobin 32 PG (27-34); Mean Platelet Volume 11.7 FL (9.6-12.0); Monocytes # 1.5 10*3/uL (0.11-0.8); Monocytes % 9.4 % (1.7-12.7); Neutrophils # 12.8 10*3/uL (1.4-7.4); Neutrophils % 81.2 % (38.7-73.9); Red Cell Distribution Width 13.7 % (9.3-17.3); White Blood Count 15.8 T/CUMM (4-12)
[2017-04-25 04:56] LABS: Platelet Count 78 T/CUMM (130-400)
[2017-04-25 05:25] LABS: Alanine Aminotransferase 34 U/L (16-61); Albumin 2.9 G/DL (3.4-5.0); Alkaline Phosphatase 79 U/L (45-117); Aspartate Amino Transferase 24 U/L (0-37); Bilirubin,Indirect 0.7 MG/DL (0.0-1.0); Blood Urea Nitrogen 24 MG/DL (7-18); Calcium 8.2 MG/DL (8.5-10.1); Glucose 100 MG/DL (74-106); Magnesium 2.2 MG/DL (1.8-2.4); Osmolality,Calculated 273.1 MOS/KG (273-304); Potassium 4.5 MMOL/L (3.5-5.1); Sodium 135 MMOL/L (136-145); Total Protein 5.6 G/DL (6.4-8.3)
[2017-04-25 05:30] LABS: Hypochromasia 1+; Ovalocytes Slight; Platelet Estimate Decreased
[2017-04-25 05:31] LABS: Giant Platelets Few
[2017-04-25] MEDS: KETOROLAC 30 MG/1 ML VIAL IV SCH ×4 (05:44→23:30)
[2017-04-25] MEDS: amLODIPine 10 MG TABLET PO SCH (09:09)
[2017-04-25] MEDS: ASPIRIN EC 325 MG TABLET PO SCH (09:09)
[2017-04-25] MEDS: FERROUS SULFATE 325 MG TABLET PO SCH (09:09)
[2017-04-25] MEDS: LISINOPRIL 20 MG TABLET PO SCH (09:09)
[2017-04-25] MEDS: CARVEDILOL 12.5 MG TABLET PO SCH ×2 (09:09→21:41)
[2017-04-25] MEDS: ATORVASTATIN 80 MG TABLET PO SCH (09:09)
[2017-04-25] MEDS: DOCUSATE SODIUM 100 MG CAPSULE PO SCH (09:09)
[2017-04-25] MEDS: PANTOPRAZOLE 40 MG TABLET PO SCH (09:09)
[2017-04-25] MEDS: CHLORHEXIDINE 0.12% ORAL RINSE 60 ML BOTTLE SWISH/SPIT SCH ×2 (11:03→21:41)
[2017-04-26] MEDS: oxyCODONE/ACETAMINOPHEN 5-325 MG TABLET PO PRN (04:06)
[2017-04-26] MEDS: KETOROLAC 30 MG/1 ML VIAL IV SCH (07:18)
[2017-04-26] MEDS: FERROUS SULFATE 325 MG TABLET PO SCH (09:23)
[2017-04-26] MEDS: LISINOPRIL 20 MG TABLET PO SCH (09:23)
[2017-04-26] MEDS: PANTOPRAZOLE 40 MG TABLET PO SCH (09:23)
[2017-04-26] MEDS: ATORVASTATIN 80 MG TABLET PO SCH (09:23)
[2017-04-26] MEDS: ASPIRIN EC 325 MG TABLET PO SCH (09:23)
[2017-04-26] MEDS: CHLORHEXIDINE 0.12% ORAL RINSE 60 ML BOTTLE SWISH/SPIT SCH (09:24)
[2017-04-26] MEDS: amLODIPine 10 MG TABLET PO SCH (09:24)
[2017-04-26] MEDS: CARVEDILOL 12.5 MG TABLET PO SCH (09:24)
[2017-04-26] MEDS: DOCUSATE SODIUM 100 MG CAPSULE PO SCH (09:24)
[2017-04-26 11:46] VITALS: BP 115/67
== END 2017-04-26 14:06 | disposition home or self-care (01) | DRG 220 ==
LOC: N.TELES 08:45 → N.CVR 04-21 10:00 → N.ICU 04-22 10:43 → N.TELES 04-23 15:52
PROC: CABGMVR (ICD-10-PCS; 2017-04-21 06:42)

== ENCOUNTER 2019-05-02 13:27 | Inpatient (IN) ==
[2019-05-02 15:14] LABS: Basophils % 0.9 % (0.0-0.8); Eosinophils % 0.7 % (0.00-10.9); Hematocrit 38.6 VOL% (42.0-52.0); Hemoglobin 12.7 GM/DL (14.0-18.0); Immature Granulocytes % 0.2 %; Immature Granulocytes Absolute 0.01 #; Lymphocytes # 1.7 10*3/uL (1.4-4.0); Lymphocytes % 39.1 % (21.2-54.2); Mean Corpuscular HGB Conc 32.9 GM/DL (32-36); Mean Corpuscular Volume 95.8 FL (87-102); Mean Platelet Volume 10.5 FL (9.6-12.0); Monocytes % 13.7 % (1.7-12.7); Neutrophils % 45.4 % (38.7-73.9); Platelet Count 160 T/CUMM (130-400); Red Blood Count 4.03 MC/CUMM (3.8-5.5); Red Cell Distribution Width 18.2 % (9.3-17.3); White Blood Count 4.5 T/CUMM (4-12)
[2019-05-02] MEDS ORDERED: FUROSEMIDE 40 MG/4 ML VIAL IV STA (15:16)
[2019-05-02 15:24] LABS: INR 1.2; PT Patient Result 13.4 SECS (9.6-12.2); Partial Thromboplastin Time 29.5 SECS (20.8-36.0)
[2019-05-02 15:34] LABS: Albumin 3.1 G/DL (3.4-5.0); Bilirubin,Total 1.7 MG/DL (0.2-1.0); Calcium 8.6 MG/DL (8.5-10.1); Osmolality,Calculated 275.7 MOS/KG (273-304); Total Protein 7.7 G/DL (6.4-8.3)
[2019-05-02 15:42] LABS: Troponin I 0.021 NG/ML (0.00-0.045)
[2019-05-02] MEDS ORDERED: ACETAMINOPHEN 325 MG TABLET PO PRN (18:24)
[2019-05-02] MEDS ORDERED: ONDANSETRON 4 MG/2 ML VIAL IV PRN (18:24)
[2019-05-02] MEDS ORDERED: MAGNESIUM SULF RIDER 4 GM in PREMIX 1 EACH IV PRN (18:28)
[2019-05-02 19:21] LABS: Troponin I 0.046 NG/ML (0.00-0.045)
[2019-05-02] MEDS: carvediloL 25 MG TABLET PO SCH (20:56)
[2019-05-02] MEDS: MAGNESIUM SULF RIDER 2 GM in PREMIX 1 EACH IV PRN (20:56)
[2019-05-02] MEDS: ENOXAPARIN 40 MG/0.4 ML SYRINGE SUBCUT SCH (20:56)
[2019-05-02 20:58] LABS: Troponin I 0.023 NG/ML (0.00-0.045)
[2019-05-02] MEDS: dilTIAZem Drip 125 MG/125 ML PREMIX IV SCH (21:44)
[2019-05-03 04:41] LABS: Basophils % 0.9 % (0.0-0.8); Eosinophils % 0.7 % (0.00-10.9); Hematocrit 35.2 VOL% (42.0-52.0); Hemoglobin 11.5 GM/DL (14.0-18.0); Immature Granulocytes % 0.5 %; Immature Granulocytes Absolute 0.02 #; Lymphocytes # 1.7 10*3/uL (1.4-4.0); Lymphocytes % 39.4 % (21.2-54.2); Mean Corpuscular HGB Conc 32.7 GM/DL (32-36); Mean Corpuscular Volume 94.1 FL (87-102); Mean Platelet Volume 10.8 FL (9.6-12.0); Monocytes % 15.3 % (1.7-12.7); Neutrophils % 43.2 % (38.7-73.9); Platelet Count 147 T/CUMM (130-400); Red Blood Count 3.74 MC/CUMM (3.8-5.5); Red Cell Distribution Width 18.1 % (9.3-17.3); White Blood Count 4.2 T/CUMM (4-12)
[2019-05-03 05:10] LABS: Calcium 8.1 MG/DL (8.5-10.1); Osmolality,Calculated 278.5 MOS/KG (273-304)
[2019-05-03] MEDS: NICOTINE 14 MG/24 HR PATCH TRANSDERM SCH (08:32)
[2019-05-03] MEDS: FUROSEMIDE 40 MG/4 ML VIAL IV SCH ×2 (08:33→15:39)
[2019-05-03] MEDS: carvediloL 25 MG TABLET PO SCH ×2 (08:33→17:35)
[2019-05-03] MEDS: PANTOPRAZOLE 40 MG TABLET PO SCH (08:33)
[2019-05-03] MEDS: ENOXAPARIN 40 MG/0.4 ML SYRINGE SUBCUT SCH (21:50)
[2019-05-03] MEDS: dilTIAZem Drip 125 MG/125 ML PREMIX IV SCH (23:11)
[2019-05-04] MEDS: NICOTINE 14 MG/24 HR PATCH TRANSDERM SCH (08:44)
[2019-05-04] MEDS: carvediloL 25 MG TABLET PO SCH ×2 (08:44→16:12)
[2019-05-04] MEDS: PANTOPRAZOLE 40 MG TABLET PO SCH (08:44)
[2019-05-04] MEDS: FUROSEMIDE 40 MG/4 ML VIAL IV SCH ×2 (08:51→16:14)
[2019-05-04] MEDS ORDERED: POTASSIUM CHLORIDE 20 MEQ TABLET PO ONE (11:55)
[2019-05-04] MEDS: SPIRONOLACTONE 25 MG TABLET PO SCH (12:51)
[2019-05-04] MEDS: LISINOPRIL 10 MG TABLET PO SCH (12:51)
[2019-05-04] MEDS ORDERED: POTASSIUM CHLORIDE RIDER 10 MEQ in PREMIX 1 EACH IV PRN (13:26)
[2019-05-04] MEDS ORDERED: MAGNESIUM SULF RIDER 2 GM in PREMIX 1 EACH IV PRN (13:26)
[2019-05-04] MEDS: ASPIRIN EC 81 MG TABLET PO SCH (14:15)
[2019-05-04] MEDS: ENOXAPARIN 40 MG/0.4 ML SYRINGE SUBCUT SCH (21:33)
[2019-05-04] MEDS: ATORVASTATIN 40 MG TABLET PO SCH (21:33)
[2019-05-04] MEDS: dilTIAZem Drip 125 MG/125 ML PREMIX IV SCH (23:13)
[2019-05-05 04:43] LABS: Basophils % 0.7 % (0.0-0.8); Eosinophils # 0.1 10*3/uL (0.0-0.87); Eosinophils % 1.1 % (0.00-10.9); Hematocrit 34.1 VOL% (42.0-52.0); Hemoglobin 11.3 GM/DL (14.0-18.0); Immature Granulocytes % 0.2 %; Immature Granulocytes Absolute 0.01 #; Lymphocytes % 44.9 % (21.2-54.2); Mean Corpuscular HGB Conc 33.1 GM/DL (32-36); Mean Corpuscular Volume 93.9 FL (87-102); Mean Platelet Volume 10.9 FL (9.6-12.0); Neutrophils % 39.1 % (38.7-73.9); Platelet Count 135 T/CUMM (130-400); Red Blood Count 3.63 MC/CUMM (3.8-5.5); Red Cell Distribution Width 17.8 % (9.3-17.3); White Blood Count 4.4 T/CUMM (4-12)
[2019-05-05 04:58] LABS: INR 1.2; PT Patient Result 12.5 SECS (9.6-12.2)
[2019-05-05 04:59] LABS: Calcium 8.3 MG/DL (8.5-10.1); Osmolality,Calculated 275.8 MOS/KG (273-304)
[2019-05-05] MEDS ORDERED: diphenhydrAMINE CAP 25 MG CAPSULE PO ONE (06:30)
[2019-05-05] MEDS: FUROSEMIDE 40 MG/4 ML VIAL IV SCH ×2 (07:33→16:59)
[2019-05-05] MEDS: SODIUM CHLORIDE 0.9% 1,000 ML IV SCH (07:36)
[2019-05-05] MEDS: ASPIRIN EC 81 MG TABLET PO SCH (08:51)
[2019-05-05] MEDS: carvediloL 25 MG TABLET PO SCH ×2 (08:51→16:57)
[2019-05-05] MEDS: SPIRONOLACTONE 25 MG TABLET PO SCH (08:51)
[2019-05-05] MEDS: NICOTINE 14 MG/24 HR PATCH TRANSDERM SCH (08:51)
[2019-05-05] MEDS: LISINOPRIL 10 MG TABLET PO SCH (08:52)
[2019-05-05] MEDS: PANTOPRAZOLE 40 MG TABLET PO SCH (08:53)
[2019-05-05] MEDS ORDERED: DIAZEPAM 5 MG TABLET PO ONE (09:00)
[2019-05-05] MEDS ORDERED: MAGNESIUM SULF RIDER 4 GM in PREMIX 1 EACH IV ONE (10:39)
[2019-05-05] MEDS: MAGNESIUM SULF RIDER 2 GM in PREMIX 1 EACH IV PRN (11:13)
[2019-05-05] MEDS ORDERED: LIDOCAINE 1% 20 ML VIAL ONE (11:31)
[2019-05-05] MEDS ORDERED: HEPARIN/NACL 0.9% 2 UNITS/ML 1,000 ML IV ONE (11:31)
[2019-05-05] MEDS ORDERED: MIDAZOLAM 2 MG/2 ML VIAL ONE (11:52)
[2019-05-05] MEDS ORDERED: HYDROmorphone 2 MG/1 ML VIAL ONE (11:52)
[2019-05-05] MEDS ORDERED: BIVALIRUDIN 250 MG VIAL IV ONE (12:26)
[2019-05-05] MEDS ORDERED: TICAGRELOR 90 MG TABLET ONE (12:33)
[2019-05-05] MEDS ORDERED: BIVALIRUDIN 250 MG in SODIUM CHLORIDE 0.9% 50 ML IV SCH (13:00)
[2019-05-05] MEDS ORDERED: SODIUM CHLORIDE 0.9% 1,000 ML IV SCH (14:00)
[2019-05-05] MEDS ORDERED: TUBERCULIN SKIN TEST 0.1 ML SYRINGE INTRADERM ONE (14:02)
[2019-05-05] MEDS ORDERED: ACETYLCYSTEINE 600 MG CAPSULE PO SCH (21:00)
[2019-05-05] MEDS: ENOXAPARIN 40 MG/0.4 ML SYRINGE SUBCUT SCH (22:26)
[2019-05-05] MEDS: dilTIAZem Drip 125 MG/125 ML PREMIX IV SCH (22:27)
[2019-05-05] MEDS: TICAGRELOR 90 MG TABLET PO SCH (22:27)
[2019-05-05] MEDS: ATORVASTATIN 40 MG TABLET PO SCH (22:27)
[2019-05-05] MEDS: ASCORBIC ACID 500 MG TABLET PO SCH (22:27)
[2019-05-06 06:51] LABS: Troponin I 0.023 NG/ML (0.00-0.045)
[2019-05-06 07:00] LABS: Calcium 8.7 MG/DL (8.5-10.1)
[2019-05-06] MEDS: SODIUM CHLORIDE 0.9% 1,000 ML IV SCH (08:17)
[2019-05-06] MEDS: SPIRONOLACTONE 25 MG TABLET PO SCH (09:27)
[2019-05-06] MEDS: FUROSEMIDE 40 MG/4 ML VIAL IV SCH (09:27)
[2019-05-06] MEDS: carvediloL 25 MG TABLET PO SCH ×2 (09:27→16:36)
[2019-05-06] MEDS: LISINOPRIL 10 MG TABLET PO SCH (09:28)
[2019-05-06] MEDS: ASPIRIN EC 81 MG TABLET PO SCH (09:28)
[2019-05-06] MEDS: TICAGRELOR 90 MG TABLET PO SCH ×2 (09:28→20:57)
[2019-05-06] MEDS: NICOTINE 14 MG/24 HR PATCH TRANSDERM SCH (09:28)
[2019-05-06] MEDS: PANTOPRAZOLE 40 MG TABLET PO SCH (09:29)
[2019-05-06] MEDS: ASCORBIC ACID 500 MG TABLET PO SCH ×2 (09:29→20:57)
[2019-05-06] MEDS: ATORVASTATIN 40 MG TABLET PO SCH (20:58)
[2019-05-06] MEDS: ENOXAPARIN 40 MG/0.4 ML SYRINGE SUBCUT SCH (20:58)
[2019-05-06] MEDS: MAGNESIUM CHLORIDE 64 MG TABLET PO SCH (20:58)
[2019-05-07] MEDS: dilTIAZem Drip 125 MG/125 ML PREMIX IV SCH ×2 (03:38→21:22)
[2019-05-07 04:40] LABS: Calcium 8.3 MG/DL (8.5-10.1); Osmolality,Calculated 280.7 MOS/KG (273-304)
[2019-05-07 04:46] LABS: Troponin I 0.041 NG/ML (0.00-0.045)
[2019-05-07] MEDS: MAGNESIUM CHLORIDE 64 MG TABLET PO SCH ×2 (09:25→21:22)
[2019-05-07] MEDS: LISINOPRIL 10 MG TABLET PO SCH (09:25)
[2019-05-07] MEDS: NICOTINE 14 MG/24 HR PATCH TRANSDERM SCH (09:25)
[2019-05-07] MEDS: ASCORBIC ACID 500 MG TABLET PO SCH ×2 (09:25→21:21)
[2019-05-07] MEDS: FUROSEMIDE 40 MG TABLET PO SCH (09:26)
[2019-05-07] MEDS: PANTOPRAZOLE 40 MG TABLET PO SCH (09:26)
[2019-05-07] MEDS: TICAGRELOR 90 MG TABLET PO SCH ×2 (09:26→21:22)
[2019-05-07] MEDS: carvediloL 25 MG TABLET PO SCH ×2 (09:26→17:43)
[2019-05-07] MEDS: SPIRONOLACTONE 25 MG TABLET PO SCH (09:26)
[2019-05-07] MEDS: ASPIRIN EC 81 MG TABLET PO SCH (09:26)
[2019-05-07] MEDS: SODIUM CHLORIDE 0.9% 1,000 ML IV SCH (21:20)
[2019-05-07] MEDS: ENOXAPARIN 40 MG/0.4 ML SYRINGE SUBCUT SCH (21:21)
[2019-05-07] MEDS: ATORVASTATIN 40 MG TABLET PO SCH (21:22)
[2019-05-08] MEDS: SODIUM CHLORIDE 0.9% 1,000 ML IV SCH (06:37)
[2019-05-08 07:59] VITALS: BP 120/79
[2019-05-08] MEDS: carvediloL 25 MG TABLET PO SCH (08:20)
[2019-05-08] MEDS: NICOTINE 14 MG/24 HR PATCH TRANSDERM SCH (08:20)
[2019-05-08] MEDS: ASPIRIN EC 81 MG TABLET PO SCH (08:21)
[2019-05-08] MEDS: PANTOPRAZOLE 40 MG TABLET PO SCH (08:21)
[2019-05-08] MEDS: FUROSEMIDE 40 MG TABLET PO SCH (08:21)
[2019-05-08] MEDS: MAGNESIUM CHLORIDE 64 MG TABLET PO SCH (08:21)
[2019-05-08] MEDS: TICAGRELOR 90 MG TABLET PO SCH (08:21)
[2019-05-08] MEDS: LISINOPRIL 10 MG TABLET PO SCH (08:21)
[2019-05-08] MEDS: ASCORBIC ACID 500 MG TABLET PO SCH (08:21)
[2019-05-08] MEDS: SPIRONOLACTONE 25 MG TABLET PO SCH (08:21)
== END 2019-05-08 10:15 | disposition home or self-care (01) | DRG 247 ==
LOC: N.ED 13:27 → N.EDINP 13:27 → SUATTDRO 18:24 → N.CC 19:02 → N.TELES 05-03 16:37 → SUATTDRO 05-04 15:14
PROVIDERS: ADMIT Internal Medicine; ATTEND Hospitalist
PROC: CLDESPG (ICD-10-PCS; 2019-05-05 12:15)

== ENCOUNTER 2019-09-07 06:04 | Inpatient (IN) ==
[2019-09-07] MEDS ORDERED: DILTIAZEM 25 MG/5 ML VIAL IV ONE (06:24)
[2019-09-07] MEDS ORDERED: DILTIAZEM 50 MG/10 ML VIAL IV STA (06:28)
[2019-09-07] MEDS ORDERED: dilTIAZem Drip 125 MG/125 ML PREMIX IV SCH (06:30)
[2019-09-07 06:35] LABS: Basophils % 0.6 % (0.0-0.8); Eosinophils % 0.4 % (0.00-10.9); Hematocrit 35.1 VOL% (42.0-52.0); Hemoglobin 10.7 GM/DL (14.0-18.0); Immature Granulocytes % 0.4 %; Immature Granulocytes Absolute 0.02 #; Lymphocytes # 1.2 10*3/uL (1.4-4.0); Lymphocytes % 25.3 % (21.2-54.2); Mean Corpuscular HGB Conc 30.5 GM/DL (32-36); Mean Corpuscular Volume 96.7 FL (87-102); Mean Platelet Volume 9.7 FL (9.6-12.0); Monocytes % 9.7 % (1.7-12.7); Neutrophils % 63.6 % (38.7-73.9); Platelet Count 229 T/CUMM (130-400); Red Blood Count 3.63 MC/CUMM (3.8-5.5); Red Cell Distribution Width 17.5 % (9.3-17.3); White Blood Count 4.8 T/CUMM (4-12)
[2019-09-07 06:43] LABS: INR 1.2; PT Patient Result 12.7 SECS (9.6-12.2); Partial Thromboplastin Time 26.4 SECS (20.8-36.0)
[2019-09-07 07:13] LABS: Albumin 2.8 G/DL (3.4-5.0); Calcium 8.7 MG/DL (8.5-10.1); Osmolality,Calculated 274.8 MOS/KG (273-304); Thyroid Stimulating Hormone 2.45 uIU/ml (0.358-3.74); Total Protein 8.1 G/DL (6.4-8.3)
[2019-09-07] MEDS ORDERED: ONDANSETRON 4 MG/2 ML VIAL IV STA (07:39)
[2019-09-07 08:00] LABS: Apearance,Urine CLEAR (Clear); Bacteria,Urine Moderate /HPF (Few); Barbiturates Screen,Urine Negative (Negative); Benzodiazepines Screen,Urine Negative (Negative); Bilirubin,Urine Negative (Negative); Blood, Urine Large mg/dL (Negative); Cannabinoid Screen,Urine Negative (Negative); Glucose,Urine (UA) Negative (Negative); Hyaline Casts,Urine 3 /LPF (0-3); Ketones,Urine Negative (Negative); Mucus,Urine Occasional /LPF (Occasional); Nitrite,Urine Positive (Negative); Opiate Screen,Urine Negative (Negative); Phencyclidine Screen,Urine Negative (Negative); Protein,Urine 30 MG/DL; RBC,Urine 36 /HPF (0-4); Squamous Epithelial Cell,Urine Occasional /HPF (0-10); Urine Color Amber (Yellow); WBC,Urine 40 /HPF (0-6)
[2019-09-07] MEDS ORDERED: ONDANSETRON 4 MG/2 ML VIAL IV PRN (08:21)
[2019-09-07] MEDS ORDERED: ACETAMINOPHEN 325 MG TABLET PO PRN (08:21)
[2019-09-07] MEDS ORDERED: hydrALAZINE 20 MG/1 ML VIAL IV PRN (08:21)
[2019-09-07] MEDS ORDERED: LACTULOSE 20 GM/30 ML UDCUP PO PRN (08:21)
[2019-09-07] MEDS ORDERED: FUROSEMIDE 40 MG/4 ML VIAL IV STA (08:26)
[2019-09-07] MEDS ORDERED: SODIUM CHLORIDE 0.9% 100 ML IV ONE (08:35)
[2019-09-07] MEDS: cefTRIAXone 1,000 MG in SYRINGE 1 EACH IV SCH (09:00)
[2019-09-07] MEDS ORDERED: NITROGLYCERIN SL 0.4 MG TABLET SL PRN (09:15)
[2019-09-07] MEDS: ALBUTEROL 2.5 MG/3 ML NEB RESP TX SCH ×2 (12:00→20:19)
[2019-09-07] MEDS: guaiFENesin/DM ER 600-30 MG TABLET PO SCH ×2 (12:45→21:14)
[2019-09-07] MEDS: SPIRONOLACTONE 25 MG TABLET PO SCH ×2 (12:45→21:15)
[2019-09-07] MEDS: PANTOPRAZOLE 40 MG TABLET PO SCH (12:45)
[2019-09-07 15:44] LABS: Troponin I 0.103 NG/ML (0.00-0.045)
[2019-09-07] MEDS: FUROSEMIDE 40 MG/4 ML VIAL IV SCH (16:04)
[2019-09-07] MEDS: ATORVASTATIN 40 MG TABLET PO SCH (21:14)
[2019-09-07] MEDS: TICAGRELOR 90 MG TABLET PO SCH (21:15)
[2019-09-07] MEDS: carvediloL 25 MG TABLET PO SCH (21:15)
[2019-09-08] MEDS: ALBUTEROL 2.5 MG/3 ML NEB RESP TX SCH ×4 (01:07→19:22)
[2019-09-08 04:33] LABS: Basophils % 0.8 % (0.0-0.8); Hematocrit 31.2 VOL% (42.0-52.0); Hemoglobin 9.4 GM/DL (14.0-18.0); Immature Granulocytes % 0.3 %; Immature Granulocytes Absolute 0.01 #; Lymphocytes # 1.2 10*3/uL (1.4-4.0); Lymphocytes % 31.6 % (21.2-54.2); Mean Corpuscular HGB Conc 30.1 GM/DL (32-36); Mean Corpuscular Volume 95.7 FL (87-102); Mean Platelet Volume 9.9 FL (9.6-12.0); Monocytes % 11.7 % (1.7-12.7); Neutrophils % 54.6 % (38.7-73.9); Platelet Count 209 T/CUMM (130-400); Red Blood Count 3.26 MC/CUMM (3.8-5.5); Red Cell Distribution Width 17.3 % (9.3-17.3); White Blood Count 3.8 T/CUMM (4-12)
[2019-09-08 05:23] LABS: Albumin 2.4 G/DL (3.4-5.0); Bilirubin,Total 1.2 MG/DL (0.2-1.0); Osmolality,Calculated 276.8 MOS/KG (273-304); Total Protein 7.3 G/DL (6.4-8.3)
[2019-09-08 06:51] LABS: Risk Ratio 4.65; VLDL CHOLESTEROL 13.8 MG/DL
[2019-09-08] MEDS ORDERED: OXYMETAZOLINE 0.05% NASAL SPRAY 15 ML BOTTLE BOTH NARES PRN (06:58)
[2019-09-08] MEDS: SPIRONOLACTONE 25 MG TABLET PO SCH ×2 (09:14→20:50)
[2019-09-08] MEDS: ASPIRIN EC 81 MG TABLET PO SCH (09:15)
[2019-09-08] MEDS: guaiFENesin/DM ER 600-30 MG TABLET PO SCH ×2 (09:15→20:49)
[2019-09-08] MEDS: carvediloL 25 MG TABLET PO SCH ×2 (09:15→20:49)
[2019-09-08] MEDS: PANTOPRAZOLE 40 MG TABLET PO SCH (09:15)
[2019-09-08] MEDS: TICAGRELOR 90 MG TABLET PO SCH ×2 (09:15→20:50)
[2019-09-08] MEDS: MULTIVITAMIN (CENTRUM) TABLET PO SCH (09:15)
[2019-09-08] MEDS: lisinopriL 10 MG TABLET PO SCH (09:15)
[2019-09-08] MEDS: FUROSEMIDE 40 MG/4 ML VIAL IV SCH ×2 (09:18→17:27)
[2019-09-08] MEDS: cefTRIAXone 1,000 MG in SYRINGE 1 EACH IV SCH (09:22)
[2019-09-08] MEDS: ATORVASTATIN 40 MG TABLET PO SCH (20:50)
[2019-09-09] MEDS: ALBUTEROL 2.5 MG/3 ML NEB RESP TX SCH ×2 (00:13→07:09)
[2019-09-09 03:18] LABS: Basophils % 0.4 % (0.0-0.8); Eosinophils % 0.9 % (0.00-10.9); Hematocrit 30.4 VOL% (42.0-52.0); Hemoglobin 9.7 GM/DL (14.0-18.0); Immature Granulocytes % 0.4 %; Immature Granulocytes Absolute 0.02 #; Lymphocytes # 1.4 10*3/uL (1.4-4.0); Lymphocytes % 30.5 % (21.2-54.2); Mean Corpuscular HGB Conc 31.9 GM/DL (32-36); Mean Corpuscular Volume 91.3 FL (87-102); Mean Platelet Volume 9.9 FL (9.6-12.0); Monocytes % 9.9 % (1.7-12.7); Neutrophils % 57.9 % (38.7-73.9); Platelet Count 224 T/CUMM (130-400); Red Blood Count 3.33 MC/CUMM (3.8-5.5); Red Cell Distribution Width 17.1 % (9.3-17.3); White Blood Count 4.7 T/CUMM (4-12)
[2019-09-09 03:43] LABS: Albumin 2.6 G/DL (3.4-5.0); Bilirubin,Total 0.8 MG/DL (0.2-1.0); Osmolality,Calculated 274.1 MOS/KG (273-304); Total Protein 7.6 G/DL (6.4-8.3)
[2019-09-09 04:33] LABS: Calcium 7.9 MG/DL (8.5-10.1); Osmolality,Calculated 274.1 MOS/KG (273-304)
[2019-09-09] MEDS ORDERED: MAGNESIUM SULF RIDER 2 GM in PREMIX 1 EACH IV ONE (06:51)
[2019-09-09] MEDS: FUROSEMIDE 40 MG/4 ML VIAL IV SCH (08:15)
[2019-09-09] MEDS: SPIRONOLACTONE 25 MG TABLET PO SCH (09:42)
[2019-09-09] MEDS: TICAGRELOR 90 MG TABLET PO SCH (09:43)
[2019-09-09] MEDS: MULTIVITAMIN (CENTRUM) TABLET PO SCH (09:43)
[2019-09-09] MEDS: lisinopriL 10 MG TABLET PO SCH (09:43)
[2019-09-09] MEDS: ASPIRIN EC 81 MG TABLET PO SCH (09:43)
[2019-09-09] MEDS: PANTOPRAZOLE 40 MG TABLET PO SCH (09:43)
[2019-09-09] MEDS: guaiFENesin/DM ER 600-30 MG TABLET PO SCH (09:43)
[2019-09-09] MEDS: carvediloL 25 MG TABLET PO SCH (09:43)
[2019-09-09] MEDS: cefTRIAXone 1,000 MG in SYRINGE 1 EACH IV SCH (09:51)
[2019-09-09 12:09] VITALS: BP 91/62
== END 2019-09-09 14:07 | disposition home or self-care (01) | DRG 291 ==
LOC: EDBD → EDUNIT# → N.ED 06:04 → N.EDINP 08:21 → N.TELES 08:43
PROVIDERS: ADMIT Internal Medicine; ATTEND Internal Medicine

== ENCOUNTER 2019-10-20 15:52 | Inpatient (IN) ==
[2019-10-20] MEDS ORDERED: DILTIAZEM 50 MG/10 ML VIAL IV STA (16:12)
[2019-10-20] MEDS ORDERED: DILTIAZEM 25 MG/5 ML VIAL IV ONE (16:14)
[2019-10-20] MEDS ORDERED: ONDANSETRON 4 MG/2 ML VIAL IV STA (16:29)
[2019-10-20] MEDS ORDERED: SODIUM CHLORIDE 0.9% 500 ML IV STA (16:29)
[2019-10-20] MEDS ORDERED: dilTIAZem Drip 125 MG/125 ML PREMIX IV SCH (16:30)
[2019-10-20 17:33] LABS: Basophils % 0.1 % (0.0-0.8); Hematocrit 22.7 VOL% (42.0-52.0); Hemoglobin 6.9 GM/DL (14.0-18.0); Immature Granulocytes % 0.6 %; Immature Granulocytes Absolute 0.08 #; Lymphocytes % 7.6 % (21.2-54.2); Mean Corpuscular HGB Conc 30.4 GM/DL (32-36); Mean Corpuscular Volume 89.4 FL (87-102); Mean Platelet Volume 9.8 FL (9.6-12.0); Monocytes % 10.7 % (1.7-12.7); NRBC # 0.11 10*3/uL; Platelet Count 164 T/CUMM (130-400); Red Blood Count 2.54 MC/CUMM (3.8-5.5); Red Cell Distribution Width 19.1 % (9.3-17.3); White Blood Count 13.2 T/CUMM (4-12)
[2019-10-20 17:47] LABS: Apearance,Urine Slightly Hazy (Clear); Bacteria,Urine Many /HPF (Few); Bilirubin,Urine Negative (Negative); Blood, Urine Small mg/dL (Negative); Glucose,Urine (UA) Negative (Negative); Ketones,Urine Negative (Negative); Nitrite,Urine Positive (Negative); Protein,Urine Negative; RBC,Urine 1 /HPF (0-4); Squamous Epithelial Cell,Urine Occasional /HPF (0-10); Urine Color Amber (Yellow); Urine Specific Gravity 1.017 (1.001-1.035); WBC,Urine 135 /HPF (0-6)
[2019-10-20 17:50] LABS: Barbiturates Screen,Urine Negative (Negative); Benzodiazepines Screen,Urine Negative (Negative); Cannabinoid Screen,Urine Negative (Negative); Opiate Screen,Urine Negative (Negative); Phencyclidine Screen,Urine Negative (Negative)
[2019-10-20 17:52] LABS: INR 1.3; PT Patient Result 13.3 SECS (9.8-11.9)
[2019-10-20 17:53] LABS: Alanine Aminotransferase 24 U/L (16-61); Albumin 2.1 G/DL (3.4-5.0); Alkaline Phosphatase 122 U/L (45-117); Aspartate Amino Transferase 40 U/L (0-37); Blood Urea Nitrogen 29 MG/DL (7-18); Calcium 8.1 MG/DL (8.5-10.1); Estimated Glom Filtration Rate 107 ML/MIN; Glucose 110 MG/DL (74-106); Osmolality,Calculated 270.5 MOS/KG (273-304); Total Protein 6.9 G/DL (6.4-8.3)
[2019-10-20 17:54] LABS: Troponin I 0.202 NG/ML (0.00-0.045)
[2019-10-20] MEDS ORDERED: cefTRIAXone 1,000 MG in SODIUM CHLORIDE 0.9% 100 ML IV STA (18:14)
[2019-10-20] MEDS ORDERED: DEXTROSE 10% 250 ML BAG IV PRN (18:58)
[2019-10-20] MEDS ORDERED: GLUCAGON 1 MG VIAL IM PRN (18:58)
[2019-10-20] MEDS ORDERED: SODIUM CHLORIDE 0.9% 1,000 ML IV PRN (19:04)
[2019-10-20] MEDS: PANTOPRAZOLE 40 MG VIAL IV SCH (22:33)
[2019-10-21] MEDS ORDERED: FUROSEMIDE 40 MG/4 ML VIAL IV ONE (01:00)
[2019-10-21 03:50] LABS: Basophils % 0.1 % (0.0-0.8); Hematocrit 27.1 VOL% (42.0-52.0); Hemoglobin 8.2 GM/DL (14.0-18.0); Immature Granulocytes % 0.6 %; Immature Granulocytes Absolute 0.08 #; Lymphocytes # 1.1 10*3/uL (1.4-4.0); Lymphocytes % 7.9 % (21.2-54.2); Mean Corpuscular HGB Conc 30.3 GM/DL (32-36); Mean Corpuscular Volume 91.2 FL (87-102); Mean Platelet Volume 10.8 FL (9.6-12.0); Monocytes % 16.4 % (1.7-12.7); NRBC # 0.08 10*3/uL; Platelet Count 140 T/CUMM (130-400); Red Blood Count 2.97 MC/CUMM (3.8-5.5); Red Cell Distribution Width 18.3 % (9.3-17.3)
[2019-10-21 04:10] LABS: Calcium 7.9 MG/DL (8.5-10.1); Osmolality,Calculated 267.5 MOS/KG (273-304)
[2019-10-21 05:28] LABS: Lymphocytes 8 % (20-55); Segmented Neutrophils 80 % (50-85); Total Cells Counted 100
[2019-10-21 05:29] LABS: Atypical Lymphocytes Few; Hypochromasia 2+; Microcytosis 1+
[2019-10-21 05:30] LABS: Platelet Estimate Adequate
[2019-10-21] MEDS: PANTOPRAZOLE 40 MG VIAL IV SCH (08:30)
[2019-10-21] MEDS: carvediloL 6.25 MG TABLET PO SCH ×2 (16:30→20:45)
[2019-10-21] MEDS: ASPIRIN EC 81 MG TABLET PO SCH (16:30)
[2019-10-21] MEDS: cefTRIAXone 1,000 MG in SYRINGE 1 EACH IV SCH (18:13)
[2019-10-22 07:42] LABS: Eosinophils % 0.2 % (0.00-10.9); Hematocrit 23.7 VOL% (42.0-52.0); Hemoglobin 7.5 GM/DL (14.0-18.0); Immature Granulocytes % 0.5 %; Immature Granulocytes Absolute 0.05 #; Lymphocytes # 1.1 10*3/uL (1.4-4.0); Mean Corpuscular HGB Conc 31.6 GM/DL (32-36); Mean Corpuscular Volume 88.8 FL (87-102); Mean Platelet Volume 10.7 FL (9.6-12.0); Monocytes % 12.9 % (1.7-12.7); NRBC # 0.13 10*3/uL; Neutrophils % 76.4 % (38.7-73.9); Platelet Count 152 T/CUMM (130-400); Red Blood Count 2.67 MC/CUMM (3.8-5.5); White Blood Count 10.5 T/CUMM (4-12)
[2019-10-22 08:36] LABS: Calcium 7.7 MG/DL (8.5-10.1); Osmolality,Calculated 263.9 MOS/KG (273-304)
[2019-10-22] MEDS: ASPIRIN EC 81 MG TABLET PO SCH (09:11)
[2019-10-22] MEDS: PANTOPRAZOLE 40 MG TABLET PO SCH (09:11)
[2019-10-22] MEDS: carvediloL 6.25 MG TABLET PO SCH ×2 (09:12→21:05)
[2019-10-22] MEDS ORDERED: MAGNESIUM SULF RIDER 2 GM in PREMIX 1 EACH IV ONE (12:11)
[2019-10-22] MEDS: cefTRIAXone 1,000 MG in SYRINGE 1 EACH IV SCH (17:05)
[2019-10-23 06:53] LABS: Eosinophils % 0.2 % (0.00-10.9); Hematocrit 22.2 VOL% (42.0-52.0); Hemoglobin 7.1 GM/DL (14.0-18.0); Immature Granulocytes % 0.8 %; Immature Granulocytes Absolute 0.09 #; Lymphocytes % 8.7 % (21.2-54.2); Mean Platelet Volume 10.2 FL (9.6-12.0); Monocytes % 11.5 % (1.7-12.7); NRBC # 0.09 10*3/uL; Neutrophils % 78.8 % (38.7-73.9); Platelet Count 149 T/CUMM (130-400); Red Blood Count 2.58 MC/CUMM (3.8-5.5); Red Cell Distribution Width 18.5 % (9.3-17.3); White Blood Count 10.9 T/CUMM (4-12)
[2019-10-23 07:16] LABS: Calcium 7.5 MG/DL (8.5-10.1); Osmolality,Calculated 257.4 MOS/KG (273-304)
[2019-10-23] MEDS: ASPIRIN EC 81 MG TABLET PO SCH (09:14)
[2019-10-23] MEDS: PANTOPRAZOLE 40 MG TABLET PO SCH (09:14)
[2019-10-23] MEDS: carvediloL 6.25 MG TABLET PO SCH ×2 (09:14→21:43)
[2019-10-23] MEDS ORDERED: NITROGLYCERIN SL 0.4 MG TABLET SL ONE (09:44)
[2019-10-23] MEDS: cefTRIAXone 1,000 MG in SYRINGE 1 EACH IV SCH (19:10)
[2019-10-24 08:33] LABS: Eosinophils % 0.2 % (0.00-10.9); Hematocrit 22.6 VOL% (42.0-52.0); Hemoglobin 7.1 GM/DL (14.0-18.0); Immature Granulocytes % 0.4 %; Immature Granulocytes Absolute 0.04 #; Lymphocytes # 1.1 10*3/uL (1.4-4.0); Lymphocytes % 12.3 % (21.2-54.2); Mean Corpuscular HGB Conc 31.4 GM/DL (32-36); Mean Corpuscular Volume 87.6 FL (87-102); Mean Platelet Volume 10.4 FL (9.6-12.0); NRBC # 0.03 10*3/uL; Neutrophils % 74.1 % (38.7-73.9); Platelet Count 149 T/CUMM (130-400); Red Blood Count 2.58 MC/CUMM (3.8-5.5); Red Cell Distribution Width 18.6 % (9.3-17.3); White Blood Count 9.1 T/CUMM (4-12)
[2019-10-24 08:45] LABS: Calcium 7.7 MG/DL (8.5-10.1); Osmolality,Calculated 254.4 MOS/KG (273-304)
[2019-10-24] MEDS: PANTOPRAZOLE 40 MG TABLET PO SCH (09:27)
[2019-10-24] MEDS: ASPIRIN EC 81 MG TABLET PO SCH (09:27)
[2019-10-24] MEDS: carvediloL 6.25 MG TABLET PO SCH ×2 (09:27→21:09)
[2019-10-24] MEDS: cefTRIAXone 1,000 MG in SYRINGE 1 EACH IV SCH (18:00)
[2019-10-25 07:17] LABS: Osmolality,Calculated 256.2 MOS/KG (273-304)
[2019-10-25] MEDS: carvediloL 6.25 MG TABLET PO SCH ×2 (09:12→20:57)
[2019-10-25] MEDS: PANTOPRAZOLE 40 MG TABLET PO SCH (09:12)
[2019-10-25] MEDS: ASPIRIN EC 81 MG TABLET PO SCH (09:12)
[2019-10-25 09:49] LABS: Basophils % 0.1 % (0.0-0.8); Eosinophils % 0.1 % (0.00-10.9); Hematocrit 26.1 VOL% (42.0-52.0); Hemoglobin 8.1 GM/DL (14.0-18.0); Immature Granulocytes % 0.6 %; Immature Granulocytes Absolute 0.07 #; Lymphocytes # 1.2 10*3/uL (1.4-4.0); Lymphocytes % 9.3 % (21.2-54.2); Mean Corpuscular Volume 88.5 FL (87-102); Mean Platelet Volume 10.4 FL (9.6-12.0); Monocytes % 7.8 % (1.7-12.7); Neutrophils % 82.1 % (38.7-73.9); Platelet Count 212 T/CUMM (130-400); Red Blood Count 2.95 MC/CUMM (3.8-5.5); Red Cell Distribution Width 18.7 % (9.3-17.3); White Blood Count 12.4 T/CUMM (4-12)
[2019-10-25] MEDS: cefTRIAXone 1,000 MG in SYRINGE 1 EACH IV SCH (19:18)
[2019-10-26] MEDS: ASPIRIN EC 81 MG TABLET PO SCH (09:00)
[2019-10-26] MEDS: PANTOPRAZOLE 40 MG TABLET PO SCH (09:00)
[2019-10-26] MEDS: carvediloL 6.25 MG TABLET PO SCH (09:01)
[2019-10-26 12:53] VITALS: BP 101/68
== END 2019-10-26 15:23 | disposition home or self-care (01) | DRG 309 ==
LOC: EDSEX → EDBD → EDUNIT# → N.ED 15:52 → SUATTDRO 18:58 → N.EDINP 18:58 → N.TELEN 19:28
PROVIDERS: ADMIT Internal Medicine; ATTEND Internal Medicine

== ENCOUNTER 2019-10-31 11:38 | Inpatient (IN) ==
[2019-10-31] MEDS ORDERED: FUROSEMIDE 20 MG/2 ML VIAL IV STA (12:35)
[2019-10-31 14:11] LABS: Eosinophils % 0.1 % (0.00-10.9); Hematocrit 26.8 VOL% (42.0-52.0); Hemoglobin 8.1 GM/DL (14.0-18.0); Immature Granulocytes % 0.5 %; Immature Granulocytes Absolute 0.04 #; Lymphocytes # 1.3 10*3/uL (1.4-4.0); Lymphocytes % 15.5 % (21.2-54.2); Mean Corpuscular HGB Conc 30.2 GM/DL (32-36); Mean Corpuscular Volume 87.6 FL (87-102); Mean Platelet Volume 9.8 FL (9.6-12.0); Monocytes % 8.9 % (1.7-12.7); NRBC # 0.02 10*3/uL; Platelet Count 270 T/CUMM (130-400); Red Blood Count 3.06 MC/CUMM (3.8-5.5); Red Cell Distribution Width 19.9 % (9.3-17.3); White Blood Count 8.2 T/CUMM (4-12)
[2019-10-31 14:24] LABS: INR 1.4; PT Patient Result 14.3 SECS (9.8-11.9); Partial Thromboplastin Time 33.5 SECS (23.9-33.8)
[2019-10-31 14:35] LABS: Alanine Aminotransferase 32 U/L (16-61); Alkaline Phosphatase 153 U/L (45-117); Aspartate Amino Transferase 50 U/L (0-37); Blood Urea Nitrogen 34 MG/DL (7-18); Calcium 8.6 MG/DL (8.5-10.1); Estimated Glom Filtration Rate 58 ML/MIN; Glucose 96 MG/DL (74-106); Osmolality,Calculated 262.2 MOS/KG (273-304); Total Protein 8.5 G/DL (6.4-8.3); Troponin I 0.124 NG/ML (0.00-0.045)
[2019-10-31] MEDS ORDERED: SODIUM CHLORIDE 0.9% 500 ML IV STA (14:47)
[2019-10-31] MEDS ORDERED: cefTRIAXone 1,000 MG in SODIUM CHLORIDE 0.9% 100 ML IV STA (14:48)
[2019-10-31] MEDS ORDERED: ONDANSETRON 4 MG/2 ML VIAL IV PRN (15:54)
[2019-10-31] MEDS ORDERED: guaiFENesin/DM ER 600-30 MG TABLET PO PRN (15:54)
[2019-10-31] MEDS ORDERED: GLUCAGON 1 MG VIAL IM PRN (15:54)
[2019-10-31] MEDS ORDERED: ACETAMINOPHEN 325 MG TABLET PO PRN (15:54)
[2019-10-31] MEDS ORDERED: MAGNESIUM SULF RIDER 2 GM in PREMIX 1 EACH IV PRN (15:54)
[2019-10-31] MEDS ORDERED: ZALEPLON 5 MG CAPSULE PO PRN (15:54)
[2019-10-31] MEDS ORDERED: DEXTROSE 50% 25 GM/50 ML VIAL IV PRN (15:54)
[2019-10-31] MEDS ORDERED: MAGNESIUM SULF RIDER 4 GM in PREMIX 1 EACH IV PRN (15:54)
[2019-10-31] MEDS ORDERED: DOCUSATE SODIUM 100 MG CAPSULE PO PRN (15:54)
[2019-10-31 15:59] LABS: Apearance,Urine CLEAR (Clear); Bacteria,Urine Occasional /HPF (Few); Bilirubin,Urine Negative (Negative); Blood, Urine Small mg/dL (Negative); Glucose,Urine (UA) Negative (Negative); Hyaline Casts,Urine 16 /LPF (0-3); Ketones,Urine Negative (Negative); Mucus,Urine Occasional /LPF (Occasional); Nitrite,Urine Negative (Negative); Protein,Urine Negative; RBC,Urine 2 /HPF (0-4); Squamous Epithelial Cell,Urine Occasional /HPF (0-10); Urine Specific Gravity 1.012 (1.001-1.035); WBC,Urine <1 /HPF (0-6)
[2019-10-31 16:00] LABS: Urine Color Yellow (Yellow)
[2019-10-31] MEDS ORDERED: SODIUM CHLORIDE 0.9% 1,000 ML IV SCH (16:00)
[2019-10-31] MEDS ORDERED: ENOXAPARIN 40 MG/0.4 ML SYRINGE SUBCUT SCH (16:00)
[2019-10-31] MEDS ORDERED: FUROSEMIDE 40 MG/4 ML VIAL IV ONE (16:27)
[2019-10-31] MEDS ORDERED: SODIUM POLYSTYRENE SULFATE 15 GM/60 ML BOTTLE PO STA (16:40)
[2019-10-31 17:06] LABS: ABG Base Excess -3.8 MMOL/L (-2.5-2.5); ABG HCO3 21.3 MMOL/L (20-26); ABG Oxygen Saturation 99.4 % (95-100); ABG PCO2 31.1 MM HG (35-48); ABG PH 7.417 (7.35-7.45); ABG TCO2 18.5 MMOL/L (23-27)
[2019-10-31] MEDS: cefTRIAXone 1,000 MG in SYRINGE 1 EACH IV SCH (17:53)
[2019-10-31] MEDS ORDERED: ASPIRIN 325 MG TABLET PO ONE (19:00)
[2019-10-31] MEDS ORDERED: NITROGLYCERIN SL 0.4 MG TABLET SL PRN (21:29)
[2019-10-31] MEDS: carvediloL 6.25 MG TABLET PO SCH (22:10)
[2019-11-01 05:30] LABS: Hematocrit 22.4 VOL% (42.0-52.0); Hemoglobin 6.9 GM/DL (14.0-18.0); Immature Granulocytes % 0.7 %; Immature Granulocytes Absolute 0.06 #; Lymphocytes # 1.1 10*3/uL (1.4-4.0); Lymphocytes % 12.1 % (21.2-54.2); Mean Corpuscular HGB Conc 30.8 GM/DL (32-36); Mean Corpuscular Volume 84.5 FL (87-102); Mean Platelet Volume 9.2 FL (9.6-12.0); Neutrophils % 77.2 % (38.7-73.9); Platelet Count 239 T/CUMM (130-400); Red Blood Count 2.65 MC/CUMM (3.8-5.5); Red Cell Distribution Width 19.4 % (9.3-17.3); White Blood Count 9.2 T/CUMM (4-12)
[2019-11-01 05:57] LABS: Albumin 1.8 G/DL (3.4-5.0); Bilirubin,Total 2.6 MG/DL (0.2-1.0); Calcium 7.8 MG/DL (8.5-10.1); Osmolality,Calculated 271.7 MOS/KG (273-304); Total Protein 7.3 G/DL (6.4-8.3)
[2019-11-01] MEDS: FUROSEMIDE 40 MG/4 ML VIAL IV SCH ×2 (08:40→16:27)
[2019-11-01] MEDS: amLODIPine 5 MG TABLET PO SCH (08:40)
[2019-11-01] MEDS: carvediloL 6.25 MG TABLET PO SCH ×2 (08:40→22:38)
[2019-11-01] MEDS: AZITHROMYCIN 250 MG TABLET PO SCH (08:40)
[2019-11-01] MEDS: ASPIRIN EC 81 MG TABLET PO SCH (08:40)
[2019-11-01 08:43] LABS: % Iron Saturation 8.6 % (18-50)
[2019-11-01] MEDS ORDERED: PANTOPRAZOLE 40 MG TABLET PO SCH (09:00)
[2019-11-01] MEDS ORDERED: OXYMETAZOLINE 0.05% NASAL SPRAY 15 ML BOTTLE BOTH NARES PRN (09:00)
[2019-11-01] MEDS ORDERED: TICAGRELOR 90 MG TABLET PO SCH (09:00)
[2019-11-01] MEDS ORDERED: ASPIRIN 325 MG TABLET PO ONE (09:00)
[2019-11-01] MEDS ORDERED: SODIUM CHLORIDE 0.9% 1,000 ML IV PRN (09:08)
[2019-11-01] MEDS ORDERED: METOPROLOL TARTRATE 5 MG/5 ML VIAL IV ONE (10:00)
[2019-11-01] MEDS: cefTRIAXone 1,000 MG in SYRINGE 1 EACH IV SCH (16:28)
[2019-11-01] MEDS ORDERED: PANTOPRAZOLE 40 MG VIAL IV SCH (21:00)
[2019-11-01] MEDS: ASCORBIC ACID 500 MG TABLET PO SCH (22:38)
[2019-11-01] MEDS: POLYETHYLENE GLYCOL POWDER 17 GM PACK PO SCH (22:38)
[2019-11-01] MEDS: ATORVASTATIN 40 MG TABLET PO SCH (22:38)
[2019-11-02 06:15] LABS: Eosinophils % 0.3 % (0.00-10.9); Hematocrit 25.9 VOL% (42.0-52.0); Immature Granulocytes % 0.6 %; Immature Granulocytes Absolute 0.04 #; Lymphocytes # 1.1 10*3/uL (1.4-4.0); Lymphocytes % 17.5 % (21.2-54.2); Mean Corpuscular Volume 85.5 FL (87-102); Mean Platelet Volume 9.5 FL (9.6-12.0); Monocytes % 11.3 % (1.7-12.7); NRBC # 0.02 10*3/uL; Neutrophils % 70.3 % (38.7-73.9); Platelet Count 220 T/CUMM (130-400); Red Blood Count 3.03 MC/CUMM (3.8-5.5); Red Cell Distribution Width 18.9 % (9.3-17.3)
[2019-11-02 06:28] LABS: Hemoglobin 8.3 GM/DL (14.0-18.0); White Blood Count 6.4 T/CUMM (4-12)
[2019-11-02] MEDS: ASPIRIN EC 81 MG TABLET PO SCH (08:25)
[2019-11-02] MEDS: carvediloL 6.25 MG TABLET PO SCH ×2 (08:25→21:56)
[2019-11-02] MEDS: amLODIPine 5 MG TABLET PO SCH (08:25)
[2019-11-02] MEDS: AZITHROMYCIN 250 MG TABLET PO SCH (08:25)
[2019-11-02] MEDS: ASCORBIC ACID 500 MG TABLET PO SCH ×2 (08:25→21:56)
[2019-11-02] MEDS: POLYETHYLENE GLYCOL POWDER 17 GM PACK PO SCH ×2 (08:25→21:56)
[2019-11-02] MEDS: PANTOPRAZOLE 40 MG TABLET PO SCH ×2 (08:25→16:50)
[2019-11-02] MEDS: FUROSEMIDE 20 MG TABLET PO SCH ×2 (11:16→16:50)
[2019-11-02] MEDS: cefTRIAXone 1,000 MG in SYRINGE 1 EACH IV SCH (16:45)
[2019-11-02] MEDS: ATORVASTATIN 40 MG TABLET PO SCH (21:56)
[2019-11-03 04:35] LABS: Eosinophils % 0.5 % (0.00-10.9); Hematocrit 25.4 VOL% (42.0-52.0); Hemoglobin 7.8 GM/DL (14.0-18.0); Immature Granulocytes % 0.5 %; Immature Granulocytes Absolute 0.03 #; Lymphocytes % 16.6 % (21.2-54.2); Mean Corpuscular HGB Conc 30.7 GM/DL (32-36); Mean Corpuscular Volume 88.5 FL (87-102); Mean Platelet Volume 9.5 FL (9.6-12.0); Monocytes % 11.4 % (1.7-12.7); Platelet Count 203 T/CUMM (130-400); Red Blood Count 2.87 MC/CUMM (3.8-5.5); Red Cell Distribution Width 18.8 % (9.3-17.3); White Blood Count 6.3 T/CUMM (4-12)
[2019-11-03 05:01] LABS: Albumin 1.7 G/DL (3.4-5.0); Bilirubin,Total 1.1 MG/DL (0.2-1.0); Calcium 7.7 MG/DL (8.5-10.1); Osmolality,Calculated 269.8 MOS/KG (273-304); Total Protein 7.1 G/DL (6.4-8.3)
[2019-11-03 07:51] LABS: Risk Ratio 5.31; VLDL CHOLESTEROL 15.2 MG/DL
[2019-11-03] MEDS ORDERED: LIDOCAINE 2% 5 ML VIAL ONE (10:00)
[2019-11-03] MEDS ORDERED: propofoL 200 MG/20 ML VIAL IV ONE (10:00)
[2019-11-03] MEDS ORDERED: POTASSIUM CHLORIDE 20 MEQ TABLET PO ONE (10:18)
[2019-11-03] MEDS: SODIUM CHLORIDE 0.9% 1,000 ML IV SCH (12:10)
[2019-11-03] MEDS: FUROSEMIDE 20 MG TABLET PO SCH ×2 (13:28→15:00)
[2019-11-03] MEDS: carvediloL 6.25 MG TABLET PO SCH ×2 (13:29→20:56)
[2019-11-03] MEDS: PANTOPRAZOLE 40 MG TABLET PO SCH ×2 (13:29→16:27)
[2019-11-03] MEDS: POLYETHYLENE GLYCOL POWDER 17 GM PACK PO SCH ×2 (13:29→20:56)
[2019-11-03] MEDS: ASPIRIN EC 81 MG TABLET PO SCH (13:29)
[2019-11-03] MEDS: ASCORBIC ACID 500 MG TABLET PO SCH ×2 (14:26→20:57)
[2019-11-03] MEDS: AZITHROMYCIN 250 MG TABLET PO SCH (14:58)
[2019-11-03] MEDS: amLODIPine 5 MG TABLET PO SCH (14:58)
[2019-11-03] MEDS: FERROUS SULFATE 325 MG TABLET PO SCH ×2 (14:58→20:56)
[2019-11-03] MEDS: cefTRIAXone 1,000 MG in SYRINGE 1 EACH IV SCH (15:00)
[2019-11-03] MEDS: ATORVASTATIN 40 MG TABLET PO SCH (20:56)
[2019-11-04 06:07] LABS: Basophils % 0.2 % (0.0-0.8); Eosinophils % 0.5 % (0.00-10.9); Hematocrit 25.4 VOL% (42.0-52.0); Hemoglobin 7.8 GM/DL (14.0-18.0); Immature Granulocytes % 0.5 %; Immature Granulocytes Absolute 0.03 #; Lymphocytes # 0.9 10*3/uL (1.4-4.0); Lymphocytes % 15.7 % (21.2-54.2); Mean Corpuscular HGB Conc 30.7 GM/DL (32-36); Mean Platelet Volume 9.2 FL (9.6-12.0); Monocytes % 8.7 % (1.7-12.7); NRBC # 0.02 10*3/uL; Neutrophils % 74.4 % (38.7-73.9); Platelet Count 203 T/CUMM (130-400); Red Blood Count 2.92 MC/CUMM (3.8-5.5); Red Cell Distribution Width 19.5 % (9.3-17.3)
[2019-11-04] MEDS: FERROUS SULFATE 325 MG TABLET PO SCH ×2 (09:51→20:00)
[2019-11-04] MEDS: PANTOPRAZOLE 40 MG TABLET PO SCH ×2 (09:51→18:09)
[2019-11-04] MEDS: ASPIRIN EC 81 MG TABLET PO SCH (09:52)
[2019-11-04] MEDS: FUROSEMIDE 20 MG TABLET PO SCH ×2 (09:52→18:08)
[2019-11-04] MEDS: AZITHROMYCIN 250 MG TABLET PO SCH (09:52)
[2019-11-04] MEDS: ASCORBIC ACID 500 MG TABLET PO SCH ×2 (09:52→20:00)
[2019-11-04] MEDS: POLYETHYLENE GLYCOL POWDER 17 GM PACK PO SCH ×2 (09:53→20:00)
[2019-11-04] MEDS: SPIRONOLACTONE 25 MG TABLET PO SCH (10:01)
[2019-11-04] MEDS: lisinopriL 10 MG TABLET PO SCH (10:01)
[2019-11-04] MEDS: carvediloL 6.25 MG TABLET PO SCH ×2 (10:01→20:00)
[2019-11-04 10:11] LABS: Osmolality,Calculated 269.5 MOS/KG (273-304)
[2019-11-04] MEDS: SODIUM CHLORIDE 0.9% 1,000 ML IV SCH (12:18)
[2019-11-04] MEDS: cefTRIAXone 1,000 MG in SYRINGE 1 EACH IV SCH (18:08)
[2019-11-04] MEDS: ATORVASTATIN 40 MG TABLET PO SCH (20:00)
[2019-11-05 05:52] LABS: Hematocrit 25.4 VOL% (42.0-52.0); Hemoglobin 7.9 GM/DL (14.0-18.0); Lymphocytes % 17.5 % (21.2-54.2); Mean Corpuscular HGB Conc 31.1 GM/DL (32-36); Mean Corpuscular Volume 89.4 FL (87-102); Mean Platelet Volume 9.7 FL (9.6-12.0); Monocytes % 10.1 % (1.7-12.7); Neutrophils % 71.4 % (38.7-73.9); Platelet Count 216 T/CUMM (130-400); Red Blood Count 2.84 MC/CUMM (3.8-5.5); Red Cell Distribution Width 19.6 % (9.3-17.3); White Blood Count 5.8 T/CUMM (4-12)
[2019-11-05 05:53] LABS: Basophils % 0.2 % (0.0-0.8); Eosinophils % 0.5 % (0.00-10.9); Immature Granulocytes % 0.3 %; Immature Granulocytes Absolute 0.02 #; NRBC # 0.02 10*3/uL
[2019-11-05 06:02] LABS: Calcium 7.9 MG/DL (8.5-10.1); Osmolality,Calculated 267.5 MOS/KG (273-304)
[2019-11-05] MEDS: FERROUS SULFATE 325 MG TABLET PO SCH ×2 (09:55→21:14)
[2019-11-05] MEDS: carvediloL 6.25 MG TABLET PO SCH ×2 (09:55→21:15)
[2019-11-05] MEDS: ASPIRIN EC 81 MG TABLET PO SCH (09:55)
[2019-11-05] MEDS: POLYETHYLENE GLYCOL POWDER 17 GM PACK PO SCH ×2 (09:55→21:14)
[2019-11-05] MEDS: ASCORBIC ACID 500 MG TABLET PO SCH ×2 (09:55→21:14)
[2019-11-05] MEDS: SPIRONOLACTONE 25 MG TABLET PO SCH (09:55)
[2019-11-05] MEDS: lisinopriL 10 MG TABLET PO SCH (09:55)
[2019-11-05] MEDS: PANTOPRAZOLE 40 MG TABLET PO SCH ×2 (09:55→16:40)
[2019-11-05] MEDS: FUROSEMIDE 20 MG TABLET PO SCH ×2 (09:55→16:40)
[2019-11-05] MEDS: AZITHROMYCIN 250 MG TABLET PO SCH (09:55)
[2019-11-05] MEDS: SODIUM CHLORIDE 0.9% 1,000 ML IV SCH (17:29)
[2019-11-05] MEDS: cefTRIAXone 1,000 MG in SYRINGE 1 EACH IV SCH (17:30)
[2019-11-05] MEDS: ATORVASTATIN 40 MG TABLET PO SCH (21:14)
[2019-11-06 07:09] LABS: Basophils % 0.1 % (0.0-0.8); Eosinophils % 0.4 % (0.00-10.9); Hemoglobin 8.1 GM/DL (14.0-18.0); Immature Granulocytes % 0.7 %; Immature Granulocytes Absolute 0.05 #; Lymphocytes # 0.9 10*3/uL (1.4-4.0); Lymphocytes % 13.6 % (21.2-54.2); Mean Corpuscular HGB Conc 31.2 GM/DL (32-36); Mean Corpuscular Volume 88.1 FL (87-102); Mean Platelet Volume 9.5 FL (9.6-12.0); Monocytes % 9.1 % (1.7-12.7); Neutrophils % 76.1 % (38.7-73.9); Platelet Count 214 T/CUMM (130-400); Red Blood Count 2.95 MC/CUMM (3.8-5.5); Red Cell Distribution Width 20.1 % (9.3-17.3); White Blood Count 6.8 T/CUMM (4-12)
[2019-11-06 07:46] LABS: Calcium 7.7 MG/DL (8.5-10.1); Osmolality,Calculated 270.2 MOS/KG (273-304)
[2019-11-06] MEDS: carvediloL 6.25 MG TABLET PO SCH ×2 (08:23→21:39)
[2019-11-06] MEDS: PANTOPRAZOLE 40 MG TABLET PO SCH ×2 (08:23→16:30)
[2019-11-06] MEDS: FERROUS SULFATE 325 MG TABLET PO SCH ×2 (08:23→21:40)
[2019-11-06] MEDS: SPIRONOLACTONE 25 MG TABLET PO SCH (08:23)
[2019-11-06] MEDS: AZITHROMYCIN 250 MG TABLET PO SCH (08:23)
[2019-11-06] MEDS: FUROSEMIDE 20 MG TABLET PO SCH ×2 (08:24→16:28)
[2019-11-06] MEDS: lisinopriL 10 MG TABLET PO SCH (08:24)
[2019-11-06] MEDS: ASPIRIN EC 81 MG TABLET PO SCH (08:24)
[2019-11-06] MEDS: ASCORBIC ACID 500 MG TABLET PO SCH ×2 (08:24→21:39)
[2019-11-06] MEDS: POLYETHYLENE GLYCOL POWDER 17 GM PACK PO SCH ×2 (08:24→21:39)
[2019-11-06] MEDS: SODIUM CHLORIDE 0.9% 1,000 ML IV SCH (13:12)
[2019-11-06] MEDS: cefTRIAXone 1,000 MG in SYRINGE 1 EACH IV SCH (16:28)
[2019-11-06] MEDS: ATORVASTATIN 40 MG TABLET PO SCH (21:40)
[2019-11-07 07:51] LABS: Calcium 7.4 MG/DL (8.5-10.1); Osmolality,Calculated 270.2 MOS/KG (273-304)
[2019-11-07] MEDS: AZITHROMYCIN 250 MG TABLET PO SCH (09:21)
[2019-11-07] MEDS: PANTOPRAZOLE 40 MG TABLET PO SCH ×2 (09:21→17:09)
[2019-11-07] MEDS: ASCORBIC ACID 500 MG TABLET PO SCH ×2 (09:21→20:57)
[2019-11-07] MEDS: carvediloL 6.25 MG TABLET PO SCH ×2 (09:21→20:57)
[2019-11-07] MEDS: ASPIRIN EC 81 MG TABLET PO SCH (09:21)
[2019-11-07] MEDS: lisinopriL 10 MG TABLET PO SCH (09:21)
[2019-11-07] MEDS: FERROUS SULFATE 325 MG TABLET PO SCH ×2 (09:21→20:57)
[2019-11-07] MEDS: SPIRONOLACTONE 25 MG TABLET PO SCH (09:21)
[2019-11-07] MEDS: POLYETHYLENE GLYCOL POWDER 17 GM PACK PO SCH ×2 (09:22→20:57)
[2019-11-07] MEDS: FUROSEMIDE 20 MG TABLET PO SCH ×2 (09:22→17:00)
[2019-11-07] MEDS: SODIUM CHLORIDE 0.9% 1,000 ML IV SCH (13:16)
[2019-11-07] MEDS ORDERED: MAGNESIUM HYDROXIDE SUSP 30 ML UDCUP PO ONE (13:53)
[2019-11-07] MEDS: cefTRIAXone 1,000 MG in SYRINGE 1 EACH IV SCH (17:00)
[2019-11-07] MEDS: ATORVASTATIN 40 MG TABLET PO SCH (20:57)
[2019-11-08 05:36] LABS: Basophils % 0.3 % (0.0-0.8); Eosinophils % 0.4 % (0.00-10.9); Hemoglobin 7.2 GM/DL (14.0-18.0); Immature Granulocytes % 0.4 %; Immature Granulocytes Absolute 0.03 #; Lymphocytes # 1.2 10*3/uL (1.4-4.0); Lymphocytes % 16.1 % (21.2-54.2); Mean Corpuscular Volume 91.3 FL (87-102); Mean Platelet Volume 9.2 FL (9.6-12.0); Monocytes % 13.3 % (1.7-12.7); Neutrophils % 69.5 % (38.7-73.9); Platelet Count 217 T/CUMM (130-400); Red Blood Count 2.63 MC/CUMM (3.8-5.5); Red Cell Distribution Width 20.8 % (9.3-17.3); White Blood Count 7.3 T/CUMM (4-12)
[2019-11-08 06:38] LABS: Osmolality,Calculated 268.4 MOS/KG (273-304)
[2019-11-08] MEDS: ASCORBIC ACID 500 MG TABLET PO SCH ×2 (09:23→21:46)
[2019-11-08] MEDS: SPIRONOLACTONE 25 MG TABLET PO SCH (09:23)
[2019-11-08] MEDS: AZITHROMYCIN 250 MG TABLET PO SCH (09:23)
[2019-11-08] MEDS: FERROUS SULFATE 325 MG TABLET PO SCH ×2 (09:23→21:46)
[2019-11-08] MEDS: lisinopriL 10 MG TABLET PO SCH (09:24)
[2019-11-08] MEDS: PANTOPRAZOLE 40 MG TABLET PO SCH ×2 (09:24→16:57)
[2019-11-08] MEDS: ASPIRIN EC 81 MG TABLET PO SCH (09:24)
[2019-11-08] MEDS: carvediloL 6.25 MG TABLET PO SCH ×2 (09:24→21:46)
[2019-11-08] MEDS: FUROSEMIDE 20 MG TABLET PO SCH ×2 (09:24→16:57)
[2019-11-08] MEDS: POLYETHYLENE GLYCOL POWDER 17 GM PACK PO SCH ×2 (09:24→21:46)
[2019-11-08] MEDS: SODIUM CHLORIDE 0.9% 1,000 ML IV SCH (12:02)
[2019-11-08] MEDS: ATORVASTATIN 40 MG TABLET PO SCH (21:46)
[2019-11-09 07:59] LABS: Basophils % 0.5 % (0.0-0.8); Eosinophils % 0.5 % (0.00-10.9); Hematocrit 24.5 VOL% (42.0-52.0); Hemoglobin 7.4 GM/DL (14.0-18.0); Immature Granulocytes % 0.3 %; Immature Granulocytes Absolute 0.02 #; Lymphocytes % 15.4 % (21.2-54.2); Mean Corpuscular HGB Conc 30.2 GM/DL (32-36); Mean Corpuscular Volume 90.4 FL (87-102); Mean Platelet Volume 9.8 FL (9.6-12.0); Monocytes % 14.5 % (1.7-12.7); Neutrophils % 68.8 % (38.7-73.9); Platelet Count 206 T/CUMM (130-400); Red Blood Count 2.71 MC/CUMM (3.8-5.5); Red Cell Distribution Width 21.5 % (9.3-17.3); White Blood Count 6.4 T/CUMM (4-12)
[2019-11-09] MEDS: ASCORBIC ACID 500 MG TABLET PO SCH ×2 (08:06→21:22)
[2019-11-09] MEDS: FERROUS SULFATE 325 MG TABLET PO SCH ×2 (08:06→21:23)
[2019-11-09] MEDS: carvediloL 6.25 MG TABLET PO SCH ×2 (08:06→21:23)
[2019-11-09] MEDS: lisinopriL 10 MG TABLET PO SCH (08:07)
[2019-11-09] MEDS: POLYETHYLENE GLYCOL POWDER 17 GM PACK PO SCH ×2 (08:07→21:24)
[2019-11-09] MEDS: FUROSEMIDE 20 MG TABLET PO SCH ×2 (08:07→17:07)
[2019-11-09] MEDS: ASPIRIN EC 81 MG TABLET PO SCH (08:07)
[2019-11-09] MEDS: SPIRONOLACTONE 25 MG TABLET PO SCH (08:07)
[2019-11-09] MEDS: PANTOPRAZOLE 40 MG TABLET PO SCH ×2 (08:07→17:07)
[2019-11-09 08:19] LABS: Calcium 7.6 MG/DL (8.5-10.1)
[2019-11-09 08:24] LABS: Eosinophils 1 % (0-10); Hypochromasia 1+; Lymphocytes 11 % (20-55); Platelet Estimate Adequate; Segmented Neutrophils 71 % (50-85); Total Cells Counted 100
[2019-11-09] MEDS: SODIUM CHLORIDE 0.9% 1,000 ML IV SCH (11:41)
[2019-11-09] MEDS ORDERED: NICOTINE 21 MG/24 HR PATCH TRANSDERM PRN (14:53)
[2019-11-09] MEDS ORDERED: SODIUM CHLORIDE 0.9% 1,000 ML IV PRN (19:40)
[2019-11-09] MEDS ORDERED: lisinopriL 5 MG TABLET PO SCH (19:41)
[2019-11-09] MEDS: ATORVASTATIN 40 MG TABLET PO SCH (21:23)
[2019-11-10 06:31] LABS: Basophils % 0.6 % (0.0-0.8); Eosinophils % 0.4 % (0.00-10.9); Hematocrit 29.8 VOL% (42.0-52.0); Immature Granulocytes % 0.4 %; Immature Granulocytes Absolute 0.03 #; Lymphocytes % 14.6 % (21.2-54.2); Mean Corpuscular HGB Conc 30.2 GM/DL (32-36); Mean Corpuscular Volume 91.4 FL (87-102); Mean Platelet Volume 9.3 FL (9.6-12.0); Monocytes % 16.9 % (1.7-12.7); Neutrophils % 67.1 % (38.7-73.9); Platelet Count 202 T/CUMM (130-400); Red Blood Count 3.26 MC/CUMM (3.8-5.5); Red Cell Distribution Width 20.6 % (9.3-17.3); White Blood Count 6.7 T/CUMM (4-12)
[2019-11-10 06:59] LABS: Eosinophils 4 % (0-10); Lymphocytes 17 % (20-55); Platelet Estimate Adequate; Segmented Neutrophils 66 % (50-85); Total Cells Counted 100
[2019-11-10 07:00] LABS: Hypochromasia 2+
[2019-11-10] MEDS ORDERED: FUROSEMIDE 40 MG/4 ML VIAL IV ONE (07:43)
[2019-11-10] MEDS: SPIRONOLACTONE 25 MG TABLET PO SCH (10:00)
[2019-11-10] MEDS: ASPIRIN EC 81 MG TABLET PO SCH (10:00)
[2019-11-10] MEDS: PANTOPRAZOLE 40 MG TABLET PO SCH (10:00)
[2019-11-10] MEDS: carvediloL 6.25 MG TABLET PO SCH (10:00)
[2019-11-10] MEDS: FERROUS SULFATE 325 MG TABLET PO SCH (10:00)
[2019-11-10] MEDS: ASCORBIC ACID 500 MG TABLET PO SCH (10:00)
[2019-11-10] MEDS: FUROSEMIDE 20 MG TABLET PO SCH (10:01)
[2019-11-10] MEDS: POLYETHYLENE GLYCOL POWDER 17 GM PACK PO SCH (10:01)
[2019-11-10 12:15] VITALS: BP 111/69
== END 2019-11-10 14:28 | disposition swing bed (61) | DRG 291 ==
LOC: EDBD → EDUNIT# → N.ED 11:38 → SUATTDRO 15:54 → N.EDINP 15:54 → N.2E 17:31 → N.TELEN 11-05 18:29
PROVIDERS: ADMIT Family Medicine; ATTEND Family Medicine

== ENCOUNTER 2020-02-26 20:16 | Inpatient (IN) ==
[2020-02-26] MEDS: dilTIAZem Drip 125 MG/125 ML PREMIX IV SCH (21:22)
[2020-02-26 21:47] LABS: Basophils % 1.3 % (0.0-0.8); Hematocrit 42.6 VOL% (42.0-52.0); Hemoglobin 13.9 GM/DL (14.0-18.0); Immature Granulocytes % 0.3 %; Immature Granulocytes Absolute 0.01 #; Lymphocytes # 1.1 10*3/uL (1.4-4.0); Lymphocytes % 34.1 % (21.2-54.2); Mean Corpuscular HGB Conc 32.6 GM/DL (32-36); Mean Corpuscular Volume 93.2 FL (87-102); Mean Platelet Volume 9.8 FL (9.6-12.0); Monocytes % 16.2 % (1.7-12.7); Neutrophils % 48.1 % (38.7-73.9); Platelet Count 122 T/CUMM (130-400); Red Blood Count 4.57 MC/CUMM (3.8-5.5); White Blood Count 3.1 T/CUMM (4-12)
[2020-02-26 22:07] LABS: Albumin 2.9 G/DL (3.4-5.0); Bilirubin,Total 1.4 MG/DL (0.2-1.0); Calcium 8.7 MG/DL (8.5-10.1); Osmolality,Calculated 270.1 MOS/KG (273-304); Total Protein 7.9 G/DL (6.4-8.3)
[2020-02-27] MEDS ORDERED: NITROGLYCERIN SL 0.4 MG TABLET SL PRN (00:35)
[2020-02-27] MEDS ORDERED: FUROSEMIDE 40 MG/4 ML VIAL ONE (00:35)
[2020-02-27] MEDS ORDERED: FUROSEMIDE 40 MG/4 ML VIAL IV STA (00:40)
[2020-02-27 03:01] LABS: Apearance,Urine CLEAR (Clear); Bilirubin,Urine Negative (Negative); Blood, Urine Negative (Negative); Glucose,Urine (UA) Negative (Negative); Ketones,Urine Negative (Negative); Mucus,Urine Occasional /LPF (Occasional); Nitrite,Urine Negative (Negative); Protein,Urine 30 MG/DL; RBC,Urine 2 /HPF (0-4); Squamous Epithelial Cell,Urine Occasional /HPF (0-10); Urine Color Amber (Yellow); WBC,Urine 1 /HPF (0-6)
[2020-02-27] MEDS ORDERED: ALBUTEROL 2.5 MG/3 ML NEB RESP TX PRN (03:50)
[2020-02-27] MEDS ORDERED: PROMETHAZINE 25 MG/1 ML VIAL IM PRN (03:50)
[2020-02-27] MEDS ORDERED: ONDANSETRON 4 MG/2 ML VIAL IV PRN (03:50)
[2020-02-27] MEDS ORDERED: dilTIAZem Drip 125 MG/125 ML PREMIX IV SCH (03:50)
[2020-02-27] MEDS ORDERED: ACETAMINOPHEN 325 MG TABLET PO PRN (03:59)
[2020-02-27 04:17] LABS: Lymphocytes 36 % (20-55); Segmented Neutrophils 48 % (50-85); Total Cells Counted 100
[2020-02-27 04:18] LABS: Anisocytosis 1+; Platelet Estimate Adequate
[2020-02-27 05:34] LABS: Basophils % 0.9 % (0.0-0.8); Eosinophils % 0.6 % (0.00-10.9); Hematocrit 41.9 VOL% (42.0-52.0); Hemoglobin 13.6 GM/DL (14.0-18.0); Immature Granulocytes % 0.3 %; Immature Granulocytes Absolute 0.01 #; Lymphocytes # 1.3 10*3/uL (1.4-4.0); Lymphocytes % 37.9 % (21.2-54.2); Mean Corpuscular HGB Conc 32.5 GM/DL (32-36); Mean Corpuscular Volume 93.1 FL (87-102); Mean Platelet Volume 10.7 FL (9.6-12.0); Monocytes % 16.3 % (1.7-12.7); Platelet Count 126 T/CUMM (130-400); White Blood Count 3.4 T/CUMM (4-12)
[2020-02-27 05:56] LABS: Calcium 8.4 MG/DL (8.5-10.1); Osmolality,Calculated 269.2 MOS/KG (273-304)
[2020-02-27] MEDS: ENOXAPARIN 40 MG/0.4 ML SYRINGE SUBCUT SCH (09:27)
[2020-02-27] MEDS: FUROSEMIDE 40 MG TABLET PO SCH ×2 (09:27→16:58)
[2020-02-27] MEDS: lisinopriL 5 MG TABLET PO SCH (09:27)
[2020-02-27] MEDS: FERROUS SULFATE 325 MG TABLET PO SCH ×2 (09:28→16:58)
[2020-02-27] MEDS: ASPIRIN EC 81 MG TABLET PO SCH (09:28)
[2020-02-27] MEDS: ASCORBIC ACID 500 MG TABLET PO SCH ×2 (09:28→16:59)
[2020-02-27] MEDS: SPIRONOLACTONE 25 MG TABLET PO SCH (09:28)
[2020-02-27] MEDS: carvediloL 6.25 MG TABLET PO SCH ×2 (09:28→16:58)
[2020-02-27] MEDS: PANTOPRAZOLE 40 MG VIAL IV SCH (10:09)
[2020-02-27] MEDS ORDERED: MAGNESIUM SULF RIDER 2 GM in PREMIX 1 EACH IV ONE (12:39)
[2020-02-27 12:51] LABS: Lymphocytes 36 % (20-55); Platelet Estimate Adequate; Schistocytes Slight; Segmented Neutrophils 48 % (50-85); Total Cells Counted 100
[2020-02-27] MEDS: dilTIAZem Drip 125 MG/125 ML PREMIX IV SCH (13:00)
[2020-02-27] MEDS: AMIODARONE 200 MG TABLET PO SCH ×2 (13:48→20:06)
[2020-02-27] MEDS: NICOTINE 21 MG/24 HR PATCH TRANSDERM SCH (15:07)
[2020-02-27 17:53] LABS: Barbiturates Screen,Urine Negative (Negative); Benzodiazepines Screen,Urine Negative (Negative); Cannabinoid Screen,Urine Negative (Negative); Opiate Screen,Urine Negative (Negative); Phencyclidine Screen,Urine Negative (Negative)
[2020-02-27] MEDS ORDERED: ATORVASTATIN 40 MG TABLET PO SCH (21:00)
[2020-02-28 06:02] LABS: Calcium 8.3 MG/DL (8.5-10.1); Osmolality,Calculated 273.1 MOS/KG (273-304)
[2020-02-28] MEDS: FUROSEMIDE 40 MG TABLET PO SCH ×2 (08:34→16:22)
[2020-02-28] MEDS: carvediloL 6.25 MG TABLET PO SCH (08:34)
[2020-02-28] MEDS: FERROUS SULFATE 325 MG TABLET PO SCH (08:34)
[2020-02-28] MEDS: ASCORBIC ACID 500 MG TABLET PO SCH (08:34)
[2020-02-28] MEDS: ASPIRIN EC 81 MG TABLET PO SCH (08:35)
[2020-02-28] MEDS: SPIRONOLACTONE 25 MG TABLET PO SCH (08:35)
[2020-02-28] MEDS: lisinopriL 5 MG TABLET PO SCH (08:36)
[2020-02-28] MEDS: AMIODARONE 200 MG TABLET PO SCH (08:36)
[2020-02-28] MEDS: PANTOPRAZOLE 40 MG VIAL IV SCH (08:59)
[2020-02-28] MEDS: ENOXAPARIN 40 MG/0.4 ML SYRINGE SUBCUT SCH (09:00)
[2020-02-28] MEDS ORDERED: ERGOCALCIFEROL 50,000 UNIT CAPSULE PO SCH (09:00)
[2020-02-28] MEDS: NICOTINE 21 MG/24 HR PATCH TRANSDERM SCH (09:00)
[2020-02-28] MEDS ORDERED: ENOXAPARIN 30 MG/0.3 ML SYRINGE SUBCUT ONE (10:44)
[2020-02-28] MEDS: dilTIAZem Drip 125 MG/125 ML PREMIX IV SCH (11:03)
[2020-02-28 14:22] VITALS: BP 103/63
[2020-02-28] MEDS ORDERED: ENOXAPARIN 80 MG/0.8 ML SYRINGE SUBCUT SCH (21:00)
[2020-02-28] MEDS ORDERED: APIXABAN 5 MG TABLET PO SCH (21:00)
== END 2020-02-28 17:24 | disposition home or self-care (01) | DRG 308 ==
LOC: EDBD → EDUNIT# → N.ED 20:16 → SUATTDRO 02-27 00:32 → N.EDINP 02-27 00:32 → N.TELES 02-27 03:46
PROVIDERS: ADMIT Internal Medicine; ATTEND Hospitalist

== ENCOUNTER 2020-06-11 01:05 | Inpatient (IN) ==
[2020-06-11] MEDS ORDERED: SODIUM CHLORIDE 0.9% 1,000 ML IV STA (01:26)
[2020-06-11 01:35] LABS: Basophils % 0.1 % (0.0-0.8); Hematocrit 41.6 VOL% (42.0-52.0); Hemoglobin 12.8 GM/DL (14.0-18.0); Immature Granulocytes % 0.4 %; Immature Granulocytes Absolute 0.03 #; Lymphocytes # 1.6 10*3/uL (1.4-4.0); Lymphocytes % 23.1 % (21.2-54.2); Mean Corpuscular HGB Conc 30.8 GM/DL (32-36); Mean Corpuscular Volume 96.1 FL (87-102); Mean Platelet Volume 9.4 FL (9.6-12.0); Monocytes % 5.2 % (1.7-12.7); NRBC # 0.04 10*3/uL; Neutrophils % 71.2 % (38.7-73.9); Platelet Count 213 T/CUMM (130-400); Red Blood Count 4.33 MC/CUMM (3.8-5.5); Red Cell Distribution Width 19.6 % (9.3-17.3)
[2020-06-11] MEDS ORDERED: AMIODARONE INJ 150 MG in DEXTROSE 5% 100 ML IV ONE (01:48)
[2020-06-11] MEDS ORDERED: AMIODARONE 150 MG/3 ML VIAL ONE (01:48)
[2020-06-11 01:50] LABS: Albumin 2.8 G/DL (3.4-5.0); Calcium 8.3 MG/DL (8.5-10.1); Ferritin 688.8 ng/ml (26-388); Osmolality,Calculated 282.7 MOS/KG (273-304); Total Protein 10.1 G/DL (6.4-8.3)
[2020-06-11] MEDS: AMIODARONE INJ 450 MG in DEXTROSE 5% 241 ML IV SCH ×2 (01:51→18:24)
[2020-06-11] MEDS ORDERED: AMIODARONE 450 MG/9 ML VIAL IV ONE (01:53)
[2020-06-11 02:01] LABS: PT Patient Result 20.6 SECS (9.8-11.9)
[2020-06-11] MEDS ORDERED: ACETAMINOPHEN 500 MG TABLET PO STA (02:30)
[2020-06-11 02:37] LABS: ABG Base Excess -1.8 MMOL/L (-2.5-2.5); ABG HCO3 21.5 MMOL/L (20-26); ABG Oxygen Saturation 13.6 % (95-100); ABG PCO2 52.4 MM HG (35-48); ABG PH 7.293 (7.35-7.45); ABG TCO2 23.6 MMOL/L (23-27); Allen Test Positive; Pt O2 Delivery Device Other
[2020-06-11 02:40] LABS: ABG PO2 18.3 MM HG (80-95)
[2020-06-11] MEDS ORDERED: FUROSEMIDE 40 MG/4 ML VIAL IV STA ×2 (02:42→02:48)
[2020-06-11] MEDS ORDERED: DEXAMETHASONE 10 MG/1 ML VIAL IV STA (02:48)
[2020-06-11 02:50] LABS: Macrocytosis 1+; Platelet Estimate Normal
[2020-06-11 03:01] LABS: ABG Base Excess -3.7 MMOL/L (-2.5-2.5); ABG HCO3 21.1 MMOL/L (20-26); ABG Oxygen Saturation 85.1 % (95-100); ABG PCO2 35.9 MM HG (35-48); ABG PH 7.375 (7.35-7.45); ABG PO2 57.2 MM HG (80-95); Allen Test Positive; Pt O2 Delivery Device Other
[2020-06-11] MEDS ORDERED: DILTIAZEM 50 MG/10 ML VIAL IV STA (03:25)
[2020-06-11] MEDS ORDERED: DILTIAZEM 25 MG/5 ML VIAL IV ONE (03:26)
[2020-06-11] MEDS ORDERED: NICOTINE 21 MG/24 HR PATCH TRANSDERM PRN (03:46)
[2020-06-11] MEDS ORDERED: guaiFENesin/DM ER 600-30 MG TABLET PO PRN (03:46)
[2020-06-11] MEDS ORDERED: ALBUTEROL 2.5 MG/3 ML NEB RESP TX PRN (03:46)
[2020-06-11] MEDS ORDERED: ONDANSETRON 4 MG/2 ML VIAL IV PRN (03:46)
[2020-06-11] MEDS ORDERED: diphenhydrAMINE CAP 25 MG CAPSULE PO PRN (03:46)
[2020-06-11 04:46] LABS: Bacteria,Urine Occasional /HPF (Few); Bilirubin,Urine Negative (Negative); Blood, Urine Negative (Negative); Glucose,Urine (UA) Negative (Negative); Hyaline Casts,Urine 8 /LPF (0-3); Ketones,Urine Negative (Negative); Mucus,Urine Occasional /LPF (Occasional); Nitrite,Urine Negative (Negative); Protein,Urine Negative; RBC,Urine 1 /HPF (0-4); Squamous Epithelial Cell,Urine Occasional /HPF (0-10); Urine Appearance CLEAR (Clear); Urine Color Yellow (Yellow); Urine Urobilinogen < 2.0 EU/DL (0.2-1.0); WBC,Urine 1 /HPF (0-6)
[2020-06-11] MEDS ORDERED: PIPERACILLIN/TAZOBACTAM 3,375 MG VIAL IV ONE (04:57)
[2020-06-11] MEDS: PIPERACILLIN/TAZOBACTAM 3,375 MG in SODIUM CHLORIDE 0.9% 100 ML IV SCH ×3 (05:01→20:20)
[2020-06-11 05:19] LABS: Albumin 2.1 G/DL (3.4-5.0); Bilirubin,Total 0.9 MG/DL (0.2-1.0); Ferritin 631.4 ng/ml (26-388); Osmolality,Calculated 286.5 MOS/KG (273-304); Total Protein 8.2 G/DL (6.4-8.3)
[2020-06-11 05:29] LABS: Hematocrit 33.9 VOL% (42.0-52.0); Immature Granulocytes % 0.4 %; Immature Granulocytes Absolute 0.03 #; Lymphocytes # 1.1 10*3/uL (1.4-4.0); Lymphocytes % 14.6 % (21.2-54.2); Mean Corpuscular HGB Conc 30.7 GM/DL (32-36); Mean Corpuscular Volume 97.1 FL (87-102); Monocytes % 7.4 % (1.7-12.7); NRBC # 0.03 10*3/uL; Neutrophils % 77.6 % (38.7-73.9); Platelet Count 173 T/CUMM (130-400); Red Blood Count 3.49 MC/CUMM (3.8-5.5); Red Cell Distribution Width 19.7 % (9.3-17.3); White Blood Count 7.8 T/CUMM (4-12)
[2020-06-11 05:30] LABS: Hemoglobin 10.4 GM/DL (14.0-18.0)
[2020-06-11] MEDS ORDERED: ENOXAPARIN 40 MG/0.4 ML SYRINGE SUBCUT SCH (06:00)
[2020-06-11 06:01] LABS: Anisocytosis 1+; Hypochromasia 1+; Microcytosis 1+; Platelet Estimate Adequate; Target Cells Slight
[2020-06-11] MEDS ORDERED: SODIUM CHLORIDE 0.9% 1,050 ML IV STA (06:04)
[2020-06-11] MEDS ORDERED: dilTIAZem Drip 125 MG/125 ML PREMIX IV SCH (07:00)
[2020-06-11] MEDS ORDERED: dilTIAZem Drip 125 MG/125 ML PREMIX IV PRN (07:59)
[2020-06-11] MEDS: CHOLECALCIFEROL 1,000 UNIT TABLET PO SCH (08:38)
[2020-06-11] MEDS: CETIRIZINE 10 MG TABLET PO SCH (08:39)
[2020-06-11] MEDS: ZINC GLUCONATE 50 MG TABLET PO SCH (08:39)
[2020-06-11] MEDS: ASCORBIC ACID 500 MG TABLET PO SCH ×2 (08:39→20:20)
[2020-06-11] MEDS: DEXAMETHASONE 4 MG/1 ML VIAL IV SCH ×3 (08:40→20:20)
[2020-06-11] MEDS ORDERED: DEXAMETHASONE 4 MG/1 ML VIAL IV SCH (09:00)
[2020-06-11] MEDS ORDERED: PANTOPRAZOLE 40 MG VIAL IV SCH (09:00)
[2020-06-11 10:08] LABS: ABG Base Excess -3.1 MMOL/L (-2.5-2.5); ABG HCO3 21.8 MMOL/L (20-26); ABG PCO2 33.3 MM HG (35-48); ABG PH 7.405 (7.35-7.45); ABG TCO2 18.8 MMOL/L (23-27)
[2020-06-11 14:08] LABS: Hematocrit 37.2 VOL% (42.0-52.0); Hemoglobin 11.6 GM/DL (14.0-18.0)
[2020-06-11] MEDS: FAMOTIDINE 20 MG TABLET PO SCH (20:20)
[2020-06-12] MEDS: DEXAMETHASONE 4 MG/1 ML VIAL IV SCH ×4 (02:56→17:40)
[2020-06-12 05:26] LABS: Basophils % 0.1 % (0.0-0.8); Hematocrit 41.1 VOL% (42.0-52.0); Hemoglobin 12.8 GM/DL (14.0-18.0); Immature Granulocytes % 0.6 %; Immature Granulocytes Absolute 0.09 #; Lymphocytes # 1.3 10*3/uL (1.4-4.0); Lymphocytes % 8.6 % (21.2-54.2); Mean Corpuscular HGB Conc 31.1 GM/DL (32-36); Mean Corpuscular Volume 94.7 FL (87-102); Mean Platelet Volume 9.7 FL (9.6-12.0); Monocytes % 3.6 % (1.7-12.7); NRBC # 0.07 10*3/uL; Neutrophils % 87.1 % (38.7-73.9); Platelet Count 209 T/CUMM (130-400); Red Blood Count 4.34 MC/CUMM (3.8-5.5); Red Cell Distribution Width 19.7 % (9.3-17.3); White Blood Count 14.8 T/CUMM (4-12)
[2020-06-12 05:49] LABS: Albumin 1.9 G/DL (3.4-5.0); Bilirubin,Total 1.1 MG/DL (0.2-1.0); Calcium 7.8 MG/DL (8.5-10.1); Osmolality,Calculated 294.3 MOS/KG (273-304); Total Protein 7.8 G/DL (6.4-8.3)
[2020-06-12] MEDS: PIPERACILLIN/TAZOBACTAM 3,375 MG in SODIUM CHLORIDE 0.9% 100 ML IV SCH ×3 (06:34→20:53)
[2020-06-12] MEDS: ZINC GLUCONATE 50 MG TABLET PO SCH (08:17)
[2020-06-12] MEDS: CHOLECALCIFEROL 1,000 UNIT TABLET PO SCH (08:17)
[2020-06-12] MEDS: CETIRIZINE 10 MG TABLET PO SCH (08:17)
[2020-06-12] MEDS: ASCORBIC ACID 500 MG TABLET PO SCH ×2 (08:17→21:15)
[2020-06-12] MEDS: AZITHROMYCIN 250 MG TABLET PO SCH (08:18)
[2020-06-12] MEDS: FAMOTIDINE 20 MG TABLET PO SCH ×2 (08:19→21:15)
[2020-06-12] MEDS: AMIODARONE INJ 450 MG in DEXTROSE 5% 241 ML IV SCH ×2 (10:06→16:35)
[2020-06-12] MEDS: carvediloL 6.25 MG TABLET PO SCH (13:52)
[2020-06-12] MEDS: VANCOMYCIN INJ 1,000 MG in SODIUM CHLORIDE 0.9% 250 ML IV SCH (14:55)
[2020-06-12] MEDS ORDERED: AMIODARONE 450 MG/9 ML VIAL IV ONE (16:35)
[2020-06-12] MEDS ORDERED: ACETAMINOPHEN 325 MG TABLET PO PRN (16:56)
[2020-06-12] MEDS ORDERED: ETOMIDATE 20 MG/10 ML VIAL IV ONE ×2 (17:01→17:05)
[2020-06-12] MEDS ORDERED: SUCCINYLCHOLINE 200 MG/10 ML VIAL ONE (17:02)
[2020-06-12] MEDS ORDERED: SUCCINYLCHOLINE 200 MG/10 ML VIAL IV ONE (17:06)
[2020-06-12] MEDS ORDERED: DEXTROSE 50% 25 GM/50 ML VIAL IV PRN (17:57)
[2020-06-12] MEDS ORDERED: GLUCAGON 1 MG VIAL IM PRN (17:57)
[2020-06-12] MEDS ORDERED: SODIUM CHLORIDE 0.9% 1,000 ML IV ONE (18:29)
[2020-06-12 18:31] LABS: ABG Base Excess -4.5 MMOL/L (-2.5-2.5); ABG HCO3 20.7 MMOL/L (20-26); ABG Oxygen Saturation 99.9 % (95-100); ABG PCO2 32.2 MM HG (35-48); ABG TCO2 17.2 MMOL/L (23-27)
[2020-06-12] MEDS ORDERED: ALBUMIN 25% 25 GM in PREMIX 1 EACH IV ONE (18:41)
[2020-06-12] MEDS: MIDAZOLAM 100 MG in SODIUM CHLORIDE 0.9% 80 ML IV PRN (19:30)
[2020-06-12] MEDS: INSULIN REGULAR 100 UNIT/ML SUBCUT SCH (19:51)
[2020-06-12] MEDS: ENOXAPARIN 80 MG/0.8 ML SYRINGE SUBCUT SCH (19:52)
[2020-06-12] MEDS: NOREPINEPHRINE 8 MG in SODIUM CHLORIDE 0.9% 242 ML IV PRN (20:18)
[2020-06-12] MEDS: FUROSEMIDE 40 MG TABLET PO SCH (21:15)
[2020-06-12] MEDS: ATORVASTATIN 40 MG TABLET PO SCH (21:15)
[2020-06-12] MEDS: AMIODARONE 200 MG TABLET PO SCH (21:15)
[2020-06-12] MEDS: MORPHINE 4 MG/1 ML VIAL IV PRN (22:22)
[2020-06-13] MEDS: INSULIN REGULAR 100 UNIT/ML SUBCUT SCH ×4 (00:32→17:53)
[2020-06-13] MEDS: carvediloL 6.25 MG TABLET PO SCH ×2 (00:32→13:17)
[2020-06-13] MEDS: DEXAMETHASONE 4 MG/1 ML VIAL IV SCH ×4 (00:32→18:00)
[2020-06-13] MEDS: VANCOMYCIN INJ 1,000 MG in SODIUM CHLORIDE 0.9% 250 ML IV SCH (01:13)
[2020-06-13 05:00] LABS: Allen Test Positive; Pt O2 Delivery Device Ventilator
[2020-06-13 05:05] LABS: ABG Base Excess -3.7 MMOL/L (-2.5-2.5); ABG HCO3 21.4 MMOL/L (20-26); ABG Oxygen Saturation 99.7 % (95-100); ABG PH 7.397 (7.35-7.45); ABG TCO2 17.8 MMOL/L (23-27)
[2020-06-13 05:29] LABS: Basophils % 0.1 % (0.0-0.8); Hematocrit 38.6 VOL% (42.0-52.0); Hemoglobin 12.3 GM/DL (14.0-18.0); Immature Granulocytes % 0.5 %; Immature Granulocytes Absolute 0.08 #; Lymphocytes # 1.1 10*3/uL (1.4-4.0); Lymphocytes % 6.5 % (21.2-54.2); Mean Corpuscular HGB Conc 31.9 GM/DL (32-36); Mean Corpuscular Volume 92.6 FL (87-102); Mean Platelet Volume 10.3 FL (9.6-12.0); NRBC # 0.21 10*3/uL; Neutrophils % 89.9 % (38.7-73.9); Platelet Count 201 T/CUMM (130-400); Red Blood Count 4.17 MC/CUMM (3.8-5.5); Red Cell Distribution Width 19.3 % (9.3-17.3); White Blood Count 16.9 T/CUMM (4-12)
[2020-06-13 05:57] LABS: Albumin 1.8 G/DL (3.4-5.0); Bilirubin,Total 1.4 MG/DL (0.2-1.0); Calcium 7.5 MG/DL (8.5-10.1); Osmolality,Calculated 292.7 MOS/KG (273-304); Total Protein 7.1 G/DL (6.4-8.3)
[2020-06-13] MEDS: PIPERACILLIN/TAZOBACTAM 3,375 MG in SODIUM CHLORIDE 0.9% 100 ML IV SCH ×2 (06:00→12:00)
[2020-06-13] MEDS: ENOXAPARIN 80 MG/0.8 ML SYRINGE SUBCUT SCH ×2 (06:05→17:54)
[2020-06-13] MEDS: MIDAZOLAM 100 MG in SODIUM CHLORIDE 0.9% 80 ML IV PRN (06:06)
[2020-06-13] MEDS: FUROSEMIDE 40 MG TABLET PO SCH ×2 (08:18→20:00)
[2020-06-13] MEDS: CETIRIZINE 10 MG TABLET PO SCH (08:18)
[2020-06-13] MEDS: ASPIRIN EC 81 MG TABLET PO SCH (08:18)
[2020-06-13] MEDS: ZINC GLUCONATE 50 MG TABLET PO SCH (08:18)
[2020-06-13] MEDS: ASCORBIC ACID 500 MG TABLET PO SCH ×2 (08:18→20:00)
[2020-06-13] MEDS: CHOLECALCIFEROL 1,000 UNIT TABLET PO SCH (08:18)
[2020-06-13] MEDS: AMIODARONE 200 MG TABLET PO SCH ×2 (08:18→20:00)
[2020-06-13] MEDS: SPIRONOLACTONE 25 MG TABLET PO SCH (08:18)
[2020-06-13] MEDS: AZITHROMYCIN 250 MG TABLET PO SCH (08:18)
[2020-06-13] MEDS: FAMOTIDINE 20 MG TABLET PO SCH ×2 (08:18→20:00)
[2020-06-13] MEDS: AMIODARONE INJ 450 MG in DEXTROSE 5% 241 ML IV SCH ×2 (10:07→22:13)
[2020-06-13] MEDS: lisinopriL 5 MG TABLET PO SCH (10:07)
[2020-06-13] MEDS: NOREPINEPHRINE 8 MG in SODIUM CHLORIDE 0.9% 242 ML IV PRN ×2 (13:10→19:47)
[2020-06-13] MEDS: LEVOFLOXACIN INJ 750 MG in PREMIX 1 EACH IV SCH (15:10)
[2020-06-13] MEDS: AMPICILLIN INJ 2,000 MG in SODIUM CHLORIDE 0.9% 100 ML IV SCH ×3 (15:45→22:43)
[2020-06-13] MEDS: ATORVASTATIN 40 MG TABLET PO SCH (20:00)
[2020-06-13] MEDS: MORPHINE 4 MG/1 ML VIAL IV PRN (21:48)
[2020-06-14] MEDS: INSULIN REGULAR 100 UNIT/ML SUBCUT SCH ×4 (00:29→19:11)
[2020-06-14] MEDS: carvediloL 6.25 MG TABLET PO SCH ×2 (00:35→12:45)
[2020-06-14] MEDS: DEXAMETHASONE 4 MG/1 ML VIAL IV SCH ×4 (00:43→20:20)
[2020-06-14] MEDS ORDERED: VANCOMYCIN INJ 1,000 MG in SODIUM CHLORIDE 0.9% 250 ML IV SCH (02:00)
[2020-06-14] MEDS: AMPICILLIN INJ 2,000 MG in SODIUM CHLORIDE 0.9% 100 ML IV SCH ×4 (02:27→17:00)
[2020-06-14] MEDS: NOREPINEPHRINE 8 MG in SODIUM CHLORIDE 0.9% 242 ML IV PRN ×5 (02:55→21:51)
[2020-06-14 04:38] LABS: ABG HCO3 20.3 MMOL/L (20-26); ABG Oxygen Saturation 97.6 % (95-100); ABG PCO2 31.7 MM HG (35-48); ABG PH 7.389 (7.35-7.45); ABG PO2 95.5 MM HG (80-95); ABG TCO2 17.3 MMOL/L (23-27); Allen Test Positive; Pt O2 Delivery Device Ventilator
[2020-06-14 05:20] LABS: Basophils % 0.1 % (0.0-0.8); Hemoglobin 10.5 GM/DL (14.0-18.0); Immature Granulocytes % 0.9 %; Immature Granulocytes Absolute 0.13 #; Lymphocytes # 0.5 10*3/uL (1.4-4.0); Lymphocytes % 3.4 % (21.2-54.2); Mean Corpuscular HGB Conc 32.8 GM/DL (32-36); Mean Platelet Volume 10.1 FL (9.6-12.0); Monocytes % 2.7 % (1.7-12.7); NRBC # 0.16 10*3/uL; Neutrophils % 92.9 % (38.7-73.9); Platelet Count 190 T/CUMM (130-400); Red Blood Count 3.48 MC/CUMM (3.8-5.5); Red Cell Distribution Width 19.4 % (9.3-17.3); White Blood Count 14.9 T/CUMM (4-12)
[2020-06-14 05:29] LABS: Albumin 1.6 G/DL (3.4-5.0); Bilirubin,Total 0.8 MG/DL (0.2-1.0); Calcium 6.8 MG/DL (8.5-10.1); Ferritin 1336.2 ng/ml (26-388); Osmolality,Calculated 299.3 MOS/KG (273-304); Total Protein 6.8 G/DL (6.4-8.3)
[2020-06-14 05:36] LABS: Band Neutrophils 1 % (0-10); Lymphocytes 5 % (20-55); Nucleated Red Blood Cells 3 (0-5); Platelet Estimate Normal; Segmented Neutrophils 91 % (50-85); Total Cells Counted 100
[2020-06-14] MEDS: ENOXAPARIN 80 MG/0.8 ML SYRINGE SUBCUT SCH ×2 (06:31→19:12)
[2020-06-14] MEDS: FAMOTIDINE 20 MG TABLET PO SCH ×2 (09:45→20:20)
[2020-06-14] MEDS: AMIODARONE 200 MG TABLET PO SCH ×2 (09:45→20:20)
[2020-06-14] MEDS: ZINC GLUCONATE 50 MG TABLET PO SCH (09:45)
[2020-06-14] MEDS: CHOLECALCIFEROL 1,000 UNIT TABLET PO SCH (09:45)
[2020-06-14] MEDS: ASPIRIN EC 81 MG TABLET PO SCH (09:45)
[2020-06-14] MEDS: FUROSEMIDE 40 MG TABLET PO SCH ×2 (09:45→20:20)
[2020-06-14] MEDS: SPIRONOLACTONE 25 MG TABLET PO SCH (09:45)
[2020-06-14] MEDS: CETIRIZINE 10 MG TABLET PO SCH (09:45)
[2020-06-14] MEDS: ASCORBIC ACID 500 MG TABLET PO SCH ×2 (09:45→20:20)
[2020-06-14] MEDS: AZITHROMYCIN 250 MG TABLET PO SCH (09:45)
[2020-06-14] MEDS: lisinopriL 5 MG TABLET PO SCH (09:45)
[2020-06-14] MEDS: AMIODARONE INJ 450 MG in DEXTROSE 5% 241 ML IV SCH (14:29)
[2020-06-14] MEDS ORDERED: SODIUM CHLORIDE 0.9% 1,000 ML IV ONE (15:24)
[2020-06-14] MEDS: LEVOFLOXACIN INJ 750 MG in PREMIX 1 EACH IV SCH (16:57)
[2020-06-14] MEDS: LINEZOLID INJ 600 MG in PREMIX 1 EACH IV SCH (19:11)
[2020-06-14] MEDS: MIDAZOLAM 100 MG in SODIUM CHLORIDE 0.9% 80 ML IV PRN (19:13)
[2020-06-14] MEDS: ATORVASTATIN 40 MG TABLET PO SCH (20:21)
[2020-06-14] MEDS: AMPICILLIN/SULBACTAM 3,000 MG in SODIUM CHLORIDE 0.9% 100 ML IV SCH (20:21)
[2020-06-15] MEDS: NOREPINEPHRINE 16 MG in SODIUM CHLORIDE 0.9% 234 ML IV PRN ×3 (00:22→19:33)
[2020-06-15] MEDS: DEXAMETHASONE 4 MG/1 ML VIAL IV SCH ×4 (01:12→19:32)
[2020-06-15] MEDS: AMPICILLIN/SULBACTAM 3,000 MG in SODIUM CHLORIDE 0.9% 100 ML IV SCH ×3 (01:12→18:18)
[2020-06-15] MEDS: carvediloL 6.25 MG TABLET PO SCH ×2 (01:12→13:00)
[2020-06-15] MEDS: INSULIN REGULAR 100 UNIT/ML SUBCUT SCH ×4 (01:12→18:20)
[2020-06-15 03:39] LABS: ABG Base Excess -6.2 MMOL/L (-2.5-2.5); ABG HCO3 17.8 MMOL/L (20-26); ABG PCO2 30.3 MM HG (35-48); ABG PH 7.388 (7.35-7.45); ABG PO2 76.9 MM HG (80-95); ABG TCO2 18.8 MMOL/L (23-27); Allen Test Positive; Pt O2 Delivery Device Ventilator
[2020-06-15] MEDS: AMIODARONE INJ 450 MG in DEXTROSE 5% 241 ML IV SCH (04:06)
[2020-06-15] MEDS: LINEZOLID INJ 600 MG in PREMIX 1 EACH IV SCH ×2 (04:50→15:50)
[2020-06-15 05:13] LABS: Calcium 6.9 MG/DL (8.5-10.1); Osmolality,Calculated 304.1 MOS/KG (273-304)
[2020-06-15 05:27] LABS: Basophils % 0.1 % (0.0-0.8); Hematocrit 26.1 VOL% (42.0-52.0); Immature Granulocytes % 0.8 %; Immature Granulocytes Absolute 0.11 #; Lymphocytes # 0.5 10*3/uL (1.4-4.0); Lymphocytes % 3.7 % (21.2-54.2); Mean Corpuscular HGB Conc 32.2 GM/DL (32-36); Mean Corpuscular Volume 92.9 FL (87-102); Mean Platelet Volume 10.3 FL (9.6-12.0); Monocytes % 2.2 % (1.7-12.7); NRBC # 0.05 10*3/uL; Neutrophils % 93.2 % (38.7-73.9); Red Cell Distribution Width 19.4 % (9.3-17.3)
[2020-06-15 05:31] LABS: Hemoglobin 8.4 GM/DL (14.0-18.0); Platelet Count 156 T/CUMM (130-400); Red Blood Count 2.81 MC/CUMM (3.8-5.5)
[2020-06-15 05:41] LABS: Hypochromasia 1+; Lymphocytes 2 % (20-55); Microcytosis 1+; Nucleated Red Blood Cells 1 (0-5); Ovalocytes Slight; Platelet Estimate Adequate; Segmented Neutrophils 97 % (50-85); Total Cells Counted 100
[2020-06-15] MEDS: ENOXAPARIN 80 MG/0.8 ML SYRINGE SUBCUT SCH ×2 (06:18→18:19)
[2020-06-15] MEDS: ASPIRIN EC 81 MG TABLET PO SCH (08:16)
[2020-06-15] MEDS: FAMOTIDINE 20 MG TABLET PO SCH ×2 (08:17→20:32)
[2020-06-15] MEDS: CHOLECALCIFEROL 1,000 UNIT TABLET PO SCH (08:17)
[2020-06-15] MEDS: AZITHROMYCIN 250 MG TABLET PO SCH (08:17)
[2020-06-15] MEDS: CETIRIZINE 10 MG TABLET PO SCH (08:18)
[2020-06-15] MEDS: ASCORBIC ACID 500 MG TABLET PO SCH ×2 (08:18→20:32)
[2020-06-15] MEDS: AMIODARONE 200 MG TABLET PO SCH ×2 (08:18→20:32)
[2020-06-15] MEDS: SPIRONOLACTONE 25 MG TABLET PO SCH (08:19)
[2020-06-15] MEDS: FUROSEMIDE 40 MG TABLET PO SCH ×2 (08:19→20:32)
[2020-06-15] MEDS: ZINC GLUCONATE 50 MG TABLET PO SCH (08:30)
[2020-06-15] MEDS ORDERED: SODIUM BICARB INJ 100 MEQ in STERILE WATER INJ 1,000 ML IV SCH (10:00)
[2020-06-15] MEDS: lisinopriL 5 MG TABLET PO SCH (10:48)
[2020-06-15] MEDS: SODIUM BICARBONATE 50 MEQ/50 ML VIAL IV SCH (15:42)
[2020-06-15 18:39] LABS: PT Patient Result 86.8 SECS (9.8-11.9)
[2020-06-15 18:40] LABS: INR 9.1
[2020-06-15 20:25] LABS: PT Patient Result 94.4 SECS (9.8-11.9)
[2020-06-15] MEDS: ATORVASTATIN 40 MG TABLET PO SCH (20:32)
[2020-06-15] MEDS ORDERED: PHYTONADIONE 10 MG/1 ML AMP SUBCUT ONE (21:38)
[2020-06-15] MEDS: PHENYLEPHRINE DRIP 40 MG/250 ML PREMIX IV PRN (23:28)
[2020-06-15] MEDS: MIDAZOLAM 100 MG in SODIUM CHLORIDE 0.9% 80 ML IV PRN (23:52)
[2020-06-16] MEDS: DEXAMETHASONE 4 MG/1 ML VIAL IV SCH ×4 (00:15→18:40)
[2020-06-16] MEDS: SODIUM BICARBONATE 50 MEQ/50 ML VIAL IV SCH ×3 (00:15→16:46)
[2020-06-16] MEDS: carvediloL 6.25 MG TABLET PO SCH ×2 (00:15→12:47)
[2020-06-16] MEDS: INSULIN REGULAR 100 UNIT/ML SUBCUT SCH ×4 (00:15→18:52)
[2020-06-16] MEDS: AMPICILLIN/SULBACTAM 3,000 MG in SODIUM CHLORIDE 0.9% 100 ML IV SCH ×5 (00:26→22:45)
[2020-06-16] MEDS ORDERED: SODIUM CHLORIDE 0.9% 1,000 ML IV PRN (01:04)
[2020-06-16 01:37] LABS: PT Patient Result 89.1 SECS (9.8-11.9)
[2020-06-16 01:42] LABS: INR 9.4; Partial Thromboplastin Time 116.6 SECS (23.9-33.8)
[2020-06-16 01:43] LABS: Hematocrit 19.7 VOL% (42.0-52.0); Hemoglobin 6.3 GM/DL (14.0-18.0)
[2020-06-16 03:10] LABS: ABG Base Excess -3.4 MMOL/L (-2.5-2.5); ABG HCO3 20.9 MMOL/L (20-26); ABG Oxygen Saturation 97.1 % (95-100); ABG PCO2 33.5 MM HG (35-48); ABG PH 7.413 (7.35-7.45); ABG PO2 96.9 MM HG (80-95); ABG TCO2 21.9 MMOL/L (23-27); Allen Test Positive; Pt O2 Delivery Device Ventilator
[2020-06-16] MEDS: NOREPINEPHRINE 16 MG in SODIUM CHLORIDE 0.9% 234 ML IV PRN ×3 (03:37→22:21)
[2020-06-16] MEDS: LINEZOLID INJ 600 MG in PREMIX 1 EACH IV SCH ×2 (03:46→16:46)
[2020-06-16] MEDS: PHENYLEPHRINE DRIP 40 MG/250 ML PREMIX IV PRN (05:14)
[2020-06-16 06:19] LABS: INR 3.9
[2020-06-16 06:20] LABS: PT Patient Result 39.2 SECS (9.8-11.9)
[2020-06-16 06:30] LABS: Albumin 1.7 G/DL (3.4-5.0); Bilirubin,Total 1.1 MG/DL (0.2-1.0); Calcium 7.2 MG/DL (8.5-10.1); Osmolality,Calculated 299.5 MOS/KG (273-304); Total Protein 6.4 G/DL (6.4-8.3)
[2020-06-16] MEDS: ASCORBIC ACID 500 MG TABLET PO SCH ×2 (09:21→20:34)
[2020-06-16] MEDS: ZINC GLUCONATE 50 MG TABLET PO SCH (09:21)
[2020-06-16] MEDS: CETIRIZINE 10 MG TABLET PO SCH (09:21)
[2020-06-16] MEDS: CHOLECALCIFEROL 1,000 UNIT TABLET PO SCH (09:21)
[2020-06-16] MEDS: FUROSEMIDE 40 MG TABLET PO SCH (09:22)
[2020-06-16] MEDS: FAMOTIDINE 20 MG TABLET PO SCH ×2 (09:22→20:33)
[2020-06-16] MEDS: AMIODARONE 200 MG TABLET PO SCH ×2 (09:22→20:33)
[2020-06-16] MEDS: SPIRONOLACTONE 25 MG TABLET PO SCH (09:22)
[2020-06-16] MEDS: lisinopriL 5 MG TABLET PO SCH (09:23)
[2020-06-16 10:58] LABS: Hematocrit 23.9 VOL% (42.0-52.0); Immature Granulocytes % 0.3 %; Immature Granulocytes Absolute 0.04 #; Lymphocytes # 0.2 10*3/uL (1.4-4.0); Lymphocytes % 1.9 % (21.2-54.2); Mean Corpuscular HGB Conc 33.5 GM/DL (32-36); Mean Corpuscular Volume 87.9 FL (87-102); Mean Platelet Volume 10.2 FL (9.6-12.0); Monocytes % 1.9 % (1.7-12.7); NRBC # 0.03 10*3/uL; Neutrophils % 95.9 % (38.7-73.9); Red Blood Count 2.72 MC/CUMM (3.8-5.5); White Blood Count 12.7 T/CUMM (4-12)
[2020-06-16 11:07] LABS: Platelet Count 110 T/CUMM (130-400)
[2020-06-16 12:11] LABS: Band Neutrophils 1 % (0-10); Hypochromasia 1+; Lymphocytes 2 % (20-55); Microcytosis 1+; Platelet Estimate Adequate; Segmented Neutrophils 96 % (50-85); Total Cells Counted 100
[2020-06-16] MEDS: MIDAZOLAM 100 MG in SODIUM CHLORIDE 0.9% 80 ML IV PRN (15:30)
[2020-06-16] MEDS ORDERED: SODIUM BICARBONATE 50 MEQ/50 ML VIAL IV ONE (16:42)
[2020-06-16] MEDS: DOCUSATE SODIUM 100 MG/10 ML UDCUP PO SCH (20:33)
[2020-06-16] MEDS: ATORVASTATIN 40 MG TABLET PO SCH (20:34)
[2020-06-17] MEDS: INSULIN REGULAR 100 UNIT/ML SUBCUT SCH ×5 (00:22→18:58)
[2020-06-17] MEDS: DEXAMETHASONE 4 MG/1 ML VIAL IV SCH ×4 (01:00→18:55)
[2020-06-17] MEDS: carvediloL 6.25 MG TABLET PO SCH ×2 (01:03→14:16)
[2020-06-17] MEDS: LINEZOLID INJ 600 MG in PREMIX 1 EACH IV SCH ×2 (04:57→15:58)
[2020-06-17 04:59] LABS: ABG Base Excess -0.8 MMOL/L (-2.5-2.5); ABG HCO3 23.7 MMOL/L (20-26); ABG Oxygen Saturation 93.8 % (95-100); ABG PCO2 35.6 MM HG (35-48); ABG PH 7.424 (7.35-7.45); ABG PO2 68.4 MM HG (80-95); Allen Test Positive; Pt O2 Delivery Device Ventilator
[2020-06-17] MEDS: NOREPINEPHRINE 16 MG in SODIUM CHLORIDE 0.9% 234 ML IV PRN (05:17)
[2020-06-17] MEDS: AMPICILLIN/SULBACTAM 3,000 MG in SODIUM CHLORIDE 0.9% 100 ML IV SCH ×4 (06:00→22:20)
[2020-06-17 06:25] LABS: Albumin 1.6 G/DL (3.4-5.0); Basophils % 0.1 % (0.0-0.8); Bilirubin,Total 0.9 MG/DL (0.2-1.0); Calcium 7.4 MG/DL (8.5-10.1); Hematocrit 19.6 VOL% (42.0-52.0); Hemoglobin 6.6 GM/DL (14.0-18.0); Immature Granulocytes % 0.5 %; Immature Granulocytes Absolute 0.07 #; Lymphocytes # 0.3 10*3/uL (1.4-4.0); Lymphocytes % 2.3 % (21.2-54.2); Mean Corpuscular HGB Conc 33.7 GM/DL (32-36); Mean Corpuscular Volume 87.5 FL (87-102); Mean Platelet Volume 10.4 FL (9.6-12.0); Monocytes % 1.7 % (1.7-12.7); NRBC # 0.02 10*3/uL; Neutrophils % 95.4 % (38.7-73.9); Osmolality,Calculated 300.3 MOS/KG (273-304); Platelet Count 105 T/CUMM (130-400); Red Blood Count 2.24 MC/CUMM (3.8-5.5); Red Cell Distribution Width 18.4 % (9.3-17.3); Total Protein 6.2 G/DL (6.4-8.3); White Blood Count 13.5 T/CUMM (4-12)
[2020-06-17 06:54] LABS: Band Neutrophils 1 % (0-10); Lymphocytes 4 % (20-55); Segmented Neutrophils 95 % (50-85); Total Cells Counted 100
[2020-06-17 06:55] LABS: Platelet Estimate Adequate; Polychromasia Slight
[2020-06-17] MEDS: MIDAZOLAM 100 MG in SODIUM CHLORIDE 0.9% 80 ML IV PRN (08:02)
[2020-06-17] MEDS ORDERED: SODIUM CHLORIDE 0.9% 1,000 ML IV PRN (08:09)
[2020-06-17] MEDS: CHOLECALCIFEROL 1,000 UNIT TABLET PO SCH (09:40)
[2020-06-17] MEDS: AMIODARONE 200 MG TABLET PO SCH ×2 (09:40→20:28)
[2020-06-17] MEDS: POLYETHYLENE GLYCOL POWDER 17 GM PACK PO SCH (09:40)
[2020-06-17] MEDS: FAMOTIDINE 20 MG TABLET PO SCH (09:40)
[2020-06-17] MEDS: DOCUSATE SODIUM 100 MG/10 ML UDCUP PO SCH ×2 (09:40→20:28)
[2020-06-17] MEDS: ASCORBIC ACID 500 MG TABLET PO SCH ×2 (09:40→20:28)
[2020-06-17] MEDS: CETIRIZINE 10 MG TABLET PO SCH (09:40)
[2020-06-17] MEDS: ZINC GLUCONATE 50 MG TABLET PO SCH (09:40)
[2020-06-17 09:41] LABS: INR 2.3
[2020-06-17 09:43] LABS: Partial Thromboplastin Time 74.4 SECS (23.9-33.8)
[2020-06-17] MEDS ORDERED: PHYTONADIONE 10 MG/1 ML AMP SUBCUT ONE (10:51)
[2020-06-17] MEDS: METOCLOPRAMIDE 10 MG/2 ML VIAL IV SCH ×2 (12:51→18:55)
[2020-06-17 13:42] LABS: Hepatitis B Core IgM Quant 0.08 Index; Hepatitis B Surface Ag Quant < 0.10 Index; Hepatitis B Surface Ag Result Negative (Negative); Hepatitis C Virus Ab Quant 0.05 Index; Hepatitis C Virus Ab Result Negative (Negative)
[2020-06-17 17:15] LABS: Basophils % 0.1 % (0.0-0.8); Hematocrit 26.3 VOL% (42.0-52.0); Immature Granulocytes % 0.5 %; Immature Granulocytes Absolute 0.07 #; Lymphocytes # 0.3 10*3/uL (1.4-4.0); Lymphocytes % 1.9 % (21.2-54.2); Mean Corpuscular HGB Conc 33.5 GM/DL (32-36); Mean Corpuscular Volume 89.5 FL (87-102); Mean Platelet Volume 10.1 FL (9.6-12.0); NRBC # 0.03 10*3/uL; Neutrophils % 95.5 % (38.7-73.9); Platelet Count 93 T/CUMM (130-400); Red Blood Count 2.94 MC/CUMM (3.8-5.5); Red Cell Distribution Width 18.3 % (9.3-17.3); White Blood Count 14.8 T/CUMM (4-12)
[2020-06-17 17:16] LABS: Hemoglobin 8.8 GM/DL (14.0-18.0)
[2020-06-17 18:05] LABS: Band Neutrophils 2 % (0-10); Lymphocytes 3 % (20-55); Segmented Neutrophils 94 % (50-85); Total Cells Counted 100
[2020-06-17 18:07] LABS: Hypochromasia Slight; Microcytosis Slight; Platelet Estimate Decreased
[2020-06-17] MEDS: PANTOPRAZOLE 40 MG VIAL IV SCH (20:28)
[2020-06-17] MEDS: ATORVASTATIN 40 MG TABLET PO SCH (20:29)
[2020-06-18] MEDS: METOCLOPRAMIDE 10 MG/2 ML VIAL IV SCH ×4 (00:53→18:09)
[2020-06-18] MEDS: DEXAMETHASONE 4 MG/1 ML VIAL IV SCH ×4 (00:54→18:06)
[2020-06-18] MEDS: MIDAZOLAM 100 MG in SODIUM CHLORIDE 0.9% 80 ML IV PRN ×2 (00:56→15:00)
[2020-06-18] MEDS: INSULIN REGULAR 100 UNIT/ML SUBCUT SCH ×4 (01:01→18:26)
[2020-06-18] MEDS: carvediloL 6.25 MG TABLET PO SCH ×2 (01:46→15:30)
[2020-06-18] MEDS: LINEZOLID INJ 600 MG in PREMIX 1 EACH IV SCH (04:00)
[2020-06-18] MEDS: AMPICILLIN/SULBACTAM 3,000 MG in SODIUM CHLORIDE 0.9% 100 ML IV SCH ×4 (04:05→22:43)
[2020-06-18 04:37] LABS: Basophils % 0.1 % (0.0-0.8); Hematocrit 24.7 VOL% (42.0-52.0); Hemoglobin 8.2 GM/DL (14.0-18.0); Immature Granulocytes % 0.8 %; Immature Granulocytes Absolute 0.09 #; Lymphocytes # 0.3 10*3/uL (1.4-4.0); Lymphocytes % 2.3 % (21.2-54.2); Mean Corpuscular HGB Conc 33.2 GM/DL (32-36); Mean Corpuscular Volume 90.1 FL (87-102); Mean Platelet Volume 10.9 FL (9.6-12.0); NRBC # 0.02 10*3/uL; Neutrophils % 94.8 % (38.7-73.9); Red Blood Count 2.74 MC/CUMM (3.8-5.5); Red Cell Distribution Width 18.1 % (9.3-17.3); White Blood Count 11.9 T/CUMM (4-12)
[2020-06-18 04:49] LABS: Platelet Count 82 T/CUMM (130-400)
[2020-06-18 04:59] LABS: Albumin 1.5 G/DL (3.4-5.0); Bilirubin,Total 0.8 MG/DL (0.2-1.0); Calcium 7.7 MG/DL (8.5-10.1); INR 1.4; PT Patient Result 14.5 SECS (9.8-11.9); Total Protein 6.1 G/DL (6.4-8.3)
[2020-06-18 05:48] LABS: ABG HCO3 20.9 MMOL/L (20-26); ABG Oxygen Saturation 95.2 % (95-100); ABG PCO2 32.8 MM HG (35-48); ABG PH 7.423 (7.35-7.45); ABG PO2 79.7 MM HG (80-95); ABG TCO2 21.9 MMOL/L (23-27); Allen Test Positive; Pt O2 Delivery Device Ventilator
[2020-06-18 08:01] LABS: Lymphocytes 3 % (20-55); Platelet Estimate Decreased; Segmented Neutrophils 95 % (50-85); Total Cells Counted 100
[2020-06-18] MEDS: CETIRIZINE 10 MG TABLET PO SCH (08:59)
[2020-06-18] MEDS: CHOLECALCIFEROL 1,000 UNIT TABLET PO SCH (08:59)
[2020-06-18] MEDS: ZINC GLUCONATE 50 MG TABLET PO SCH (08:59)
[2020-06-18] MEDS: POLYETHYLENE GLYCOL POWDER 17 GM PACK PO SCH (08:59)
[2020-06-18] MEDS: ASCORBIC ACID 500 MG TABLET PO SCH ×2 (08:59→20:18)
[2020-06-18] MEDS: DOCUSATE SODIUM 100 MG/10 ML UDCUP PO SCH ×2 (08:59→20:17)
[2020-06-18] MEDS: AMIODARONE 200 MG TABLET PO SCH ×2 (08:59→20:18)
[2020-06-18] MEDS: PANTOPRAZOLE 40 MG VIAL IV SCH ×2 (09:00→20:18)
[2020-06-18] MEDS: VANCOMYCIN INJ 1,000 MG in SODIUM CHLORIDE 0.9% 250 ML IV SCH (13:56)
[2020-06-18] MEDS: ALBUMIN 25% 25 GM in PREMIX 1 EACH IV SCH (20:17)
[2020-06-18] MEDS: ATORVASTATIN 40 MG TABLET PO SCH (20:18)
[2020-06-18] MEDS: FUROSEMIDE 40 MG/4 ML VIAL IV SCH (21:34)
[2020-06-19] MEDS: METOCLOPRAMIDE 10 MG/2 ML VIAL IV SCH ×4 (00:15→17:34)
[2020-06-19] MEDS: DEXAMETHASONE 4 MG/1 ML VIAL IV SCH ×4 (00:17→18:02)
[2020-06-19] MEDS: INSULIN REGULAR 100 UNIT/ML SUBCUT SCH ×4 (00:18→17:35)
[2020-06-19] MEDS: carvediloL 6.25 MG TABLET PO SCH ×2 (01:32→14:08)
[2020-06-19 05:13] LABS: Allen Test Positive; Pt O2 Delivery Device Ventilator
[2020-06-19 05:16] LABS: Hematocrit 22.3 VOL% (42.0-52.0); Hemoglobin 7.3 GM/DL (14.0-18.0); Immature Granulocytes % 1.2 %; Immature Granulocytes Absolute 0.14 #; Lymphocytes # 0.2 10*3/uL (1.4-4.0); Mean Corpuscular HGB Conc 32.7 GM/DL (32-36); Mean Corpuscular Volume 91.4 FL (87-102); Mean Platelet Volume 10.5 FL (9.6-12.0); Monocytes % 1.4 % (1.7-12.7); NRBC # 0.02 10*3/uL; Neutrophils % 95.4 % (38.7-73.9); Platelet Count 78 T/CUMM (130-400); Red Blood Count 2.44 MC/CUMM (3.8-5.5); Red Cell Distribution Width 18.3 % (9.3-17.3); White Blood Count 11.5 T/CUMM (4-12)
[2020-06-19 05:21] LABS: ABG Base Excess -2.9 MMOL/L (-2.5-2.5); ABG HCO3 21.2 MMOL/L (20-26); ABG Oxygen Saturation 97.9 % (95-100); ABG PCO2 33.9 MM HG (35-48); ABG PH 7.415 (7.35-7.45); ABG PO2 112.4 MM HG (80-95); ABG TCO2 22.3 MMOL/L (23-27)
[2020-06-19 05:34] LABS: Hypochromasia 2+; Lymphocytes 1 % (20-55); Microcytosis 1+; Platelet Estimate Decreased; Segmented Neutrophils 97 % (50-85); Total Cells Counted 100
[2020-06-19] MEDS: AMPICILLIN/SULBACTAM 3,000 MG in SODIUM CHLORIDE 0.9% 100 ML IV SCH ×4 (05:37→23:42)
[2020-06-19] MEDS: MIDAZOLAM 100 MG in SODIUM CHLORIDE 0.9% 80 ML IV PRN ×2 (05:38→16:31)
[2020-06-19 05:43] LABS: Albumin 1.8 G/DL (3.4-5.0); Bilirubin,Total 1.1 MG/DL (0.2-1.0); Calcium 8.1 MG/DL (8.5-10.1); Total Protein 6.3 G/DL (6.4-8.3)
[2020-06-19] MEDS: ALBUMIN 25% 25 GM in PREMIX 1 EACH IV SCH (08:11)
[2020-06-19] MEDS: DOCUSATE SODIUM 100 MG/10 ML UDCUP PO SCH ×2 (08:12→20:31)
[2020-06-19] MEDS: ASCORBIC ACID 500 MG TABLET PO SCH ×2 (08:12→20:31)
[2020-06-19] MEDS: AMIODARONE 200 MG TABLET PO SCH ×2 (08:12→20:31)
[2020-06-19] MEDS: ZINC GLUCONATE 50 MG TABLET PO SCH (08:12)
[2020-06-19] MEDS: POLYETHYLENE GLYCOL POWDER 17 GM PACK PO SCH (08:12)
[2020-06-19] MEDS: CETIRIZINE 10 MG TABLET PO SCH (08:12)
[2020-06-19] MEDS: CHOLECALCIFEROL 1,000 UNIT TABLET PO SCH (08:12)
[2020-06-19] MEDS: FUROSEMIDE 40 MG/4 ML VIAL IV SCH (09:15)
[2020-06-19] MEDS: VANCOMYCIN INJ 1,000 MG in SODIUM CHLORIDE 0.9% 250 ML IV SCH (12:21)
[2020-06-19] MEDS: PANTOPRAZOLE 40 MG VIAL IV SCH ×2 (13:20→20:31)
[2020-06-19] MEDS ORDERED: SODIUM CHLORIDE 0.9% 1,000 ML IV PRN (13:55)
[2020-06-19] MEDS ORDERED: PHYTONADIONE 10 MG/1 ML AMP SUBCUT ONE (13:57)
[2020-06-19] MEDS ORDERED: ALBUTEROL INHALER 18 GM INH SCH (19:00)
[2020-06-19] MEDS: ATORVASTATIN 40 MG TABLET PO SCH (20:31)
[2020-06-19] MEDS: ALBUTEROL INHALER 18 GM INH SCH (21:50)
[2020-06-19] MEDS ORDERED: FUROSEMIDE 20 MG/2 ML VIAL IV PRN (22:15)
[2020-06-20] MEDS: METOCLOPRAMIDE 10 MG/2 ML VIAL IV SCH ×4 (00:20→18:05)
[2020-06-20] MEDS: DEXAMETHASONE 4 MG/1 ML VIAL IV SCH ×4 (00:22→18:05)
[2020-06-20] MEDS: INSULIN REGULAR 100 UNIT/ML SUBCUT SCH ×4 (00:44→17:47)
[2020-06-20] MEDS: carvediloL 6.25 MG TABLET PO SCH ×2 (00:48→12:40)
[2020-06-20] MEDS: ALBUTEROL INHALER 18 GM INH SCH ×4 (03:16→18:46)
[2020-06-20 03:23] LABS: ABG Base Excess -3.6 MMOL/L (-2.5-2.5); ABG HCO3 21.4 MMOL/L (20-26); ABG Oxygen Saturation 94.9 % (95-100); ABG PH 7.368 (7.35-7.45); ABG TCO2 19.9 MMOL/L (23-27); Allen Test Positive; Pt O2 Delivery Device Ventilator
[2020-06-20 04:29] LABS: INR 1.4; PT Patient Result 14.4 SECS (9.8-11.9)
[2020-06-20] MEDS: AMPICILLIN/SULBACTAM 3,000 MG in SODIUM CHLORIDE 0.9% 100 ML IV SCH ×4 (04:29→22:30)
[2020-06-20 04:39] LABS: Albumin 1.8 G/DL (3.4-5.0); Bilirubin,Total 1.2 MG/DL (0.2-1.0); Calcium 8.2 MG/DL (8.5-10.1); Osmolality,Calculated 307.1 MOS/KG (273-304); Total Protein 6.9 G/DL (6.4-8.3)
[2020-06-20] MEDS ORDERED: FUROSEMIDE 20 MG/2 ML VIAL IV ONE (06:30)
[2020-06-20] MEDS: MIDAZOLAM 100 MG in SODIUM CHLORIDE 0.9% 80 ML IV PRN (08:32)
[2020-06-20] MEDS: POLYETHYLENE GLYCOL POWDER 17 GM PACK PO SCH (08:33)
[2020-06-20] MEDS: CHOLECALCIFEROL 1,000 UNIT TABLET PO SCH (08:33)
[2020-06-20] MEDS: DOCUSATE SODIUM 100 MG/10 ML UDCUP PO SCH ×2 (08:33→20:36)
[2020-06-20] MEDS: PANTOPRAZOLE 40 MG VIAL IV SCH ×2 (08:33→20:35)
[2020-06-20] MEDS: AMIODARONE 200 MG TABLET PO SCH ×2 (08:34→20:36)
[2020-06-20] MEDS: CETIRIZINE 10 MG TABLET PO SCH (08:34)
[2020-06-20] MEDS: ASCORBIC ACID 500 MG TABLET PO SCH ×2 (08:34→20:36)
[2020-06-20] MEDS: ZINC GLUCONATE 50 MG TABLET PO SCH (08:34)
[2020-06-20 08:43] LABS: Hematocrit 28.6 VOL% (42.0-52.0); Immature Granulocytes % 0.7 %; Immature Granulocytes Absolute 0.08 #; Lymphocytes # 0.2 10*3/uL (1.4-4.0); Lymphocytes % 1.6 % (21.2-54.2); Mean Corpuscular HGB Conc 32.9 GM/DL (32-36); Mean Corpuscular Volume 92.3 FL (87-102); Mean Platelet Volume 9.9 FL (9.6-12.0); Monocytes % 1.1 % (1.7-12.7); Neutrophils % 96.6 % (38.7-73.9); Red Cell Distribution Width 17.2 % (9.3-17.3); White Blood Count 10.8 T/CUMM (4-12)
[2020-06-20 08:45] LABS: Hemoglobin 9.4 GM/DL (14.0-18.0); Platelet Count 60 T/CUMM (130-400)
[2020-06-20 09:03] LABS: Anisocytosis 1+; Band Neutrophils 5 % (0-10); Burr Cells Few; Lymphocytes 2 % (20-55); Platelet Estimate Decreased; Segmented Neutrophils 92 % (50-85); Total Cells Counted 100
[2020-06-20 09:04] LABS: Macrocytosis Slight
[2020-06-20] MEDS: ATORVASTATIN 40 MG TABLET PO SCH (20:36)
[2020-06-21] MEDS: MIDAZOLAM 100 MG in SODIUM CHLORIDE 0.9% 80 ML IV PRN ×2 (00:06→16:19)
[2020-06-21] MEDS: METOCLOPRAMIDE 10 MG/2 ML VIAL IV SCH ×4 (00:33→18:50)
[2020-06-21] MEDS: DEXAMETHASONE 4 MG/1 ML VIAL IV SCH ×4 (00:35→18:53)
[2020-06-21] MEDS: INSULIN REGULAR 100 UNIT/ML SUBCUT SCH ×4 (00:36→17:40)
[2020-06-21] MEDS: carvediloL 6.25 MG TABLET PO SCH ×2 (00:38→12:58)
[2020-06-21] MEDS: ALBUTEROL INHALER 18 GM INH SCH ×4 (00:38→18:55)
[2020-06-21 03:33] LABS: ABG Base Excess -4.8 MMOL/L (-2.5-2.5); ABG HCO3 19.8 MMOL/L (20-26); ABG Oxygen Saturation 92.1 % (95-100); ABG PCO2 34.8 MM HG (35-48); ABG PH 7.373 (7.35-7.45); ABG PO2 66.9 MM HG (80-95); ABG TCO2 20.9 MMOL/L (23-27); Allen Test Positive; Pt O2 Delivery Device Ventilator
[2020-06-21 05:09] LABS: Albumin 1.7 G/DL (3.4-5.0); Bilirubin,Total 0.9 MG/DL (0.2-1.0); Calcium 8.3 MG/DL (8.5-10.1); Total Protein 7.1 G/DL (6.4-8.3)
[2020-06-21] MEDS: AMPICILLIN/SULBACTAM 3,000 MG in SODIUM CHLORIDE 0.9% 100 ML IV SCH ×3 (05:55→22:04)
[2020-06-21 05:56] LABS: Basophils % 0.1 % (0.0-0.8); Hematocrit 31.2 VOL% (42.0-52.0); Hemoglobin 10.2 GM/DL (14.0-18.0); Immature Granulocytes % 0.7 %; Immature Granulocytes Absolute 0.08 #; Lymphocytes # 0.2 10*3/uL (1.4-4.0); Mean Corpuscular HGB Conc 32.7 GM/DL (32-36); Mean Corpuscular Volume 92.3 FL (87-102); Mean Platelet Volume 11.1 FL (9.6-12.0); Monocytes % 1.4 % (1.7-12.7); NRBC # 0.02 10*3/uL; Neutrophils % 95.8 % (38.7-73.9); Platelet Count 49 T/CUMM (130-400); Red Blood Count 3.38 MC/CUMM (3.8-5.5); Red Cell Distribution Width 17.2 % (9.3-17.3); White Blood Count 11.8 T/CUMM (4-12)
[2020-06-21 06:13] LABS: Lymphocytes 1 % (20-55); Platelet Estimate Decreased; Segmented Neutrophils 98 % (50-85); Total Cells Counted 100
[2020-06-21 06:14] LABS: Hypochromasia Slight; Ovalocytes Few
[2020-06-21] MEDS: PANTOPRAZOLE 40 MG VIAL IV SCH ×2 (09:48→20:42)
[2020-06-21] MEDS: ASCORBIC ACID 500 MG TABLET PO SCH ×2 (09:50→20:41)
[2020-06-21] MEDS: CETIRIZINE 10 MG TABLET PO SCH (09:50)
[2020-06-21] MEDS: AMIODARONE 200 MG TABLET PO SCH ×2 (09:50→20:41)
[2020-06-21] MEDS: CHOLECALCIFEROL 1,000 UNIT TABLET PO SCH (09:50)
[2020-06-21] MEDS: ZINC GLUCONATE 50 MG TABLET PO SCH (09:50)
[2020-06-21] MEDS: POLYETHYLENE GLYCOL POWDER 17 GM PACK PO SCH (09:50)
[2020-06-21] MEDS: DOCUSATE SODIUM 100 MG/10 ML UDCUP PO SCH ×2 (09:50→20:41)
[2020-06-21] MEDS: MENTHOL/ZINC OXIDE OINT 71 GM JAR TOP SCH ×2 (10:58→22:04)
[2020-06-21] MEDS: ATORVASTATIN 40 MG TABLET PO SCH (20:41)
[2020-06-21] MEDS: MICAFUNGIN 100 MG in SODIUM CHLORIDE 0.9% 100 ML IV SCH (20:42)
[2020-06-22] MEDS: INSULIN REGULAR 100 UNIT/ML SUBCUT SCH ×4 (00:14→18:09)
[2020-06-22] MEDS: ALBUTEROL INHALER 18 GM INH SCH ×4 (00:15→18:25)
[2020-06-22] MEDS: DEXAMETHASONE 4 MG/1 ML VIAL IV SCH ×4 (00:32→18:25)
[2020-06-22] MEDS: METOCLOPRAMIDE 10 MG/2 ML VIAL IV SCH ×4 (00:32→18:25)
[2020-06-22] MEDS: carvediloL 6.25 MG TABLET PO SCH ×2 (00:32→12:20)
[2020-06-22] MEDS: AMPICILLIN/SULBACTAM 3,000 MG in SODIUM CHLORIDE 0.9% 100 ML IV SCH ×4 (03:14→20:49)
[2020-06-22 04:37] LABS: Basophils % 0.1 % (0.0-0.8); Hematocrit 30.8 VOL% (42.0-52.0); Hemoglobin 10.2 GM/DL (14.0-18.0); Immature Granulocytes % 0.8 %; Immature Granulocytes Absolute 0.11 #; Lymphocytes # 0.4 10*3/uL (1.4-4.0); Lymphocytes % 3.2 % (21.2-54.2); Mean Corpuscular HGB Conc 33.1 GM/DL (32-36); Mean Corpuscular Volume 92.2 FL (87-102); Mean Platelet Volume 10.2 FL (9.6-12.0); Monocytes % 1.7 % (1.7-12.7); Neutrophils % 94.2 % (38.7-73.9); Red Blood Count 3.34 MC/CUMM (3.8-5.5); Red Cell Distribution Width 17.3 % (9.3-17.3); White Blood Count 13.9 T/CUMM (4-12)
[2020-06-22 04:47] LABS: Platelet Count 59 T/CUMM (130-400)
[2020-06-22 04:51] LABS: ABG Base Excess -4.6 MMOL/L (-2.5-2.5); ABG HCO3 19.4 MMOL/L (20-26); ABG Oxygen Saturation 97.4 % (95-100); ABG PCO2 32.1 MM HG (35-48); ABG PH 7.399 (7.35-7.45); ABG PO2 104.5 MM HG (80-95); ABG TCO2 20.4 MMOL/L (23-27); Allen Test Positive; Pt O2 Delivery Device Ventilator
[2020-06-22 04:59] LABS: Hypochromasia 1+; Lymphocytes 2 % (20-55); Microcytosis 1+; Platelet Estimate Decreased; Segmented Neutrophils 98 % (50-85); Total Cells Counted 100
[2020-06-22 05:01] LABS: Albumin 1.4 G/DL (3.4-5.0); Calcium 8.6 MG/DL (8.5-10.1); Osmolality,Calculated 313.7 MOS/KG (273-304); Total Protein 6.5 G/DL (6.4-8.3)
[2020-06-22] MEDS: DOCUSATE SODIUM 100 MG/10 ML UDCUP PO SCH ×2 (09:22→20:50)
[2020-06-22] MEDS: CHOLECALCIFEROL 1,000 UNIT TABLET PO SCH (09:22)
[2020-06-22] MEDS: POLYETHYLENE GLYCOL POWDER 17 GM PACK PO SCH (09:22)
[2020-06-22] MEDS: ZINC GLUCONATE 50 MG TABLET PO SCH (09:22)
[2020-06-22] MEDS: AMIODARONE 200 MG TABLET PO SCH ×2 (09:22→20:50)
[2020-06-22] MEDS: CETIRIZINE 10 MG TABLET PO SCH (09:22)
[2020-06-22] MEDS: ASCORBIC ACID 500 MG TABLET PO SCH ×2 (09:22→20:51)
[2020-06-22] MEDS: PANTOPRAZOLE 40 MG VIAL IV SCH ×2 (09:23→21:11)
[2020-06-22] MEDS: MENTHOL/ZINC OXIDE OINT 71 GM JAR TOP SCH ×2 (09:23→20:50)
[2020-06-22] MEDS: ALBUMIN 25% 25 GM in PREMIX 1 EACH IV SCH ×2 (15:55→23:13)
[2020-06-22] MEDS ORDERED: AMINO ACIDS IV SCH (17:00)
[2020-06-22] MEDS ORDERED: MANGANESE IV SCH (17:00)
[2020-06-22] MEDS ORDERED: ZINC IV SCH (17:00)
[2020-06-22] MEDS ORDERED: LYTES IV SCH (17:00)
[2020-06-22] MEDS ORDERED: SELENIUM IV SCH (17:00)
[2020-06-22] MEDS ORDERED: DEXTROSE 10% 1,000 ML IV PRN (17:00)
[2020-06-22] MEDS ORDERED: DEXT IV SCH (17:00)
[2020-06-22] MEDS ORDERED: COPPER IV SCH (17:00)
[2020-06-22] MEDS: MICAFUNGIN 100 MG in SODIUM CHLORIDE 0.9% 100 ML IV SCH (20:50)
[2020-06-22] MEDS: ATORVASTATIN 40 MG TABLET PO SCH (20:50)
[2020-06-23] MEDS: METOCLOPRAMIDE 10 MG/2 ML VIAL IV SCH ×4 (00:50→17:15)
[2020-06-23] MEDS: INSULIN REGULAR 100 UNIT/ML SUBCUT SCH ×4 (00:50→18:01)
[2020-06-23] MEDS: carvediloL 6.25 MG TABLET PO SCH ×2 (00:51→13:44)
[2020-06-23] MEDS: DEXAMETHASONE 4 MG/1 ML VIAL IV SCH ×4 (00:51→18:01)
[2020-06-23] MEDS: ALBUTEROL INHALER 18 GM INH SCH ×4 (00:51→18:02)
[2020-06-23] MEDS: MIDAZOLAM 100 MG in SODIUM CHLORIDE 0.9% 80 ML IV PRN (03:53)
[2020-06-23] MEDS: AMPICILLIN/SULBACTAM 3,000 MG in SODIUM CHLORIDE 0.9% 100 ML IV SCH ×4 (03:53→22:11)
[2020-06-23 04:38] LABS: Basophils % 0.1 % (0.0-0.8); Hematocrit 29.1 VOL% (42.0-52.0); Hemoglobin 9.3 GM/DL (14.0-18.0); Immature Granulocytes % 0.9 %; Immature Granulocytes Absolute 0.14 #; Lymphocytes # 0.6 10*3/uL (1.4-4.0); Lymphocytes % 3.8 % (21.2-54.2); Mean Corpuscular Volume 93.3 FL (87-102); Mean Platelet Volume 11.3 FL (9.6-12.0); Monocytes % 1.8 % (1.7-12.7); Neutrophils % 93.4 % (38.7-73.9); Red Blood Count 3.12 MC/CUMM (3.8-5.5); Red Cell Distribution Width 17.4 % (9.3-17.3); White Blood Count 14.8 T/CUMM (4-12)
[2020-06-23 04:40] LABS: Platelet Count 66 T/CUMM (130-400)
[2020-06-23 04:54] LABS: Calcium 8.8 MG/DL (8.5-10.1); Osmolality,Calculated 320.4 MOS/KG (273-304)
[2020-06-23 04:58] LABS: Allen Test Positive; Pt O2 Delivery Device Ventilator
[2020-06-23 05:01] LABS: ABG Base Excess -4.8 MMOL/L (-2.5-2.5); ABG PCO2 36.2 MM HG (35-48); ABG PH 7.361 (7.35-7.45); ABG PO2 64.6 MM HG (80-95); ABG TCO2 21.1 MMOL/L (23-27)
[2020-06-23 05:02] LABS: Lymphocytes 6 % (20-55); Segmented Neutrophils 91 % (50-85); Total Cells Counted 100
[2020-06-23 05:03] LABS: Hypochromasia 2+; Microcytosis 1+; Platelet Estimate Decreased
[2020-06-23] MEDS: ALBUMIN 25% 25 GM in PREMIX 1 EACH IV SCH ×2 (06:39→15:23)
[2020-06-23] MEDS: PANTOPRAZOLE 40 MG VIAL IV SCH ×2 (08:23→20:47)
[2020-06-23] MEDS: POLYETHYLENE GLYCOL POWDER 17 GM PACK PO SCH (08:23)
[2020-06-23] MEDS: ASCORBIC ACID 500 MG TABLET PO SCH ×2 (08:23→20:47)
[2020-06-23] MEDS: ZINC GLUCONATE 50 MG TABLET PO SCH (08:23)
[2020-06-23] MEDS: CETIRIZINE 10 MG TABLET PO SCH (08:24)
[2020-06-23] MEDS: CHOLECALCIFEROL 1,000 UNIT TABLET PO SCH (08:24)
[2020-06-23] MEDS: DOCUSATE SODIUM 100 MG/10 ML UDCUP PO SCH ×2 (08:24→20:47)
[2020-06-23] MEDS: AMIODARONE 200 MG TABLET PO SCH ×2 (08:24→20:47)
[2020-06-23] MEDS: MENTHOL/ZINC OXIDE OINT 71 GM JAR TOP SCH ×2 (08:24→20:48)
[2020-06-23] MEDS ORDERED: ZINC/COPPER/MANGANESE/SELENIUM 1 ML, MULTIVITAMIN INJ 10 ML in AMINO ACIDS/DEXT/LYTES 5... IV SCH (17:00)
[2020-06-23] MEDS: ATORVASTATIN 40 MG TABLET PO SCH (20:47)
[2020-06-23] MEDS: MICAFUNGIN 100 MG in SODIUM CHLORIDE 0.9% 100 ML IV SCH (20:47)
[2020-06-24] MEDS: ALBUMIN 25% 25 GM in PREMIX 1 EACH IV SCH ×3 (01:04→18:53)
[2020-06-24] MEDS: METOCLOPRAMIDE 10 MG/2 ML VIAL IV SCH ×4 (01:04→18:52)
[2020-06-24] MEDS: INSULIN REGULAR 100 UNIT/ML SUBCUT SCH ×4 (01:04→18:52)
[2020-06-24] MEDS: carvediloL 6.25 MG TABLET PO SCH ×2 (01:05→14:02)
[2020-06-24] MEDS: ALBUTEROL INHALER 18 GM INH SCH ×4 (01:05→20:20)
[2020-06-24] MEDS: DEXAMETHASONE 4 MG/1 ML VIAL IV SCH ×4 (01:05→18:52)
[2020-06-24 02:53] LABS: ABG Base Excess -5.3 MMOL/L (-2.5-2.5); ABG HCO3 19.2 MMOL/L (20-26); ABG PO2 88.6 MM HG (80-95); ABG TCO2 20.3 MMOL/L (23-27)
[2020-06-24] MEDS: AMPICILLIN/SULBACTAM 3,000 MG in SODIUM CHLORIDE 0.9% 100 ML IV SCH ×4 (04:09→22:45)
[2020-06-24 04:56] LABS: Osmolality,Calculated 329.7 MOS/KG (273-304)
[2020-06-24 06:45] LABS: Basophils % 0.1 % (0.0-0.8); Hematocrit 28.6 VOL% (42.0-52.0); Hemoglobin 9.2 GM/DL (14.0-18.0); Immature Granulocytes % 0.8 %; Immature Granulocytes Absolute 0.13 #; Lymphocytes # 0.3 10*3/uL (1.4-4.0); Lymphocytes % 2.1 % (21.2-54.2); Mean Corpuscular HGB Conc 32.2 GM/DL (32-36); Mean Platelet Volume 12.5 FL (9.6-12.0); Monocytes % 1.6 % (1.7-12.7); Neutrophils % 95.4 % (38.7-73.9); Red Blood Count 3.01 MC/CUMM (3.8-5.5); Red Cell Distribution Width 17.3 % (9.3-17.3); White Blood Count 16.4 T/CUMM (4-12)
[2020-06-24 06:46] LABS: Platelet Count 67 T/CUMM (130-400)
[2020-06-24 07:17] LABS: Hypochromasia 1+; Lymphocytes 1 % (20-55); Microcytosis 1+; Ovalocytes Slight; Platelet Estimate Decreased; Segmented Neutrophils 97 % (50-85); Total Cells Counted 100
[2020-06-24] MEDS ORDERED: VANCOMYCIN INJ 1,000 MG in SODIUM CHLORIDE 0.9% 250 ML IV PRN (07:50)
[2020-06-24] MEDS: ASCORBIC ACID 500 MG TABLET PO SCH ×2 (08:15→20:19)
[2020-06-24] MEDS: CHOLECALCIFEROL 1,000 UNIT TABLET PO SCH (08:15)
[2020-06-24] MEDS: POLYETHYLENE GLYCOL POWDER 17 GM PACK PO SCH (08:15)
[2020-06-24] MEDS: DOCUSATE SODIUM 100 MG/10 ML UDCUP PO SCH ×2 (08:15→20:19)
[2020-06-24] MEDS: PANTOPRAZOLE 40 MG VIAL IV SCH ×2 (08:15→20:19)
[2020-06-24] MEDS: ZINC GLUCONATE 50 MG TABLET PO SCH (08:15)
[2020-06-24] MEDS: MENTHOL/ZINC OXIDE OINT 71 GM JAR TOP SCH ×2 (08:16→20:20)
[2020-06-24] MEDS: CETIRIZINE 10 MG TABLET PO SCH (08:16)
[2020-06-24] MEDS: AMIODARONE 200 MG TABLET PO SCH ×2 (08:16→20:19)
[2020-06-24] MEDS ORDERED: VANCOMYCIN INJ 1,000 MG in SODIUM CHLORIDE 0.9% 250 ML IV ONE (10:00)
[2020-06-24] MEDS: ZINC IV SCH (19:00)
[2020-06-24] MEDS: AMINO ACIDS IV SCH (19:00)
[2020-06-24] MEDS: COPPER IV SCH (19:00)
[2020-06-24] MEDS: DEXT IV SCH (19:00)
[2020-06-24] MEDS: LYTES IV SCH (19:00)
[2020-06-24] MEDS: SELENIUM IV SCH (19:00)
[2020-06-24] MEDS: MANGANESE IV SCH (19:00)
[2020-06-24] MEDS: ATORVASTATIN 40 MG TABLET PO SCH (20:19)
[2020-06-24] MEDS: MICAFUNGIN 100 MG in SODIUM CHLORIDE 0.9% 100 ML IV SCH (20:20)
[2020-06-25] MEDS: INSULIN REGULAR 100 UNIT/ML SUBCUT SCH ×4 (00:43→18:15)
[2020-06-25] MEDS: carvediloL 6.25 MG TABLET PO SCH ×2 (00:44→13:06)
[2020-06-25] MEDS: ALBUTEROL INHALER 18 GM INH SCH ×4 (00:44→18:12)
[2020-06-25] MEDS: ALBUMIN 25% 25 GM in PREMIX 1 EACH IV SCH ×3 (00:44→18:14)
[2020-06-25] MEDS: METOCLOPRAMIDE 10 MG/2 ML VIAL IV SCH ×4 (00:44→18:12)
[2020-06-25] MEDS: DEXAMETHASONE 4 MG/1 ML VIAL IV SCH ×3 (00:44→13:06)
[2020-06-25 04:05] LABS: ABG Base Excess -5.5 MMOL/L (-2.5-2.5); ABG HCO3 19.8 MMOL/L (20-26); ABG Oxygen Saturation 92.7 % (95-100); ABG PH 7.379 (7.35-7.45); ABG TCO2 17.5 MMOL/L (23-27)
[2020-06-25] MEDS: AMPICILLIN/SULBACTAM 3,000 MG in SODIUM CHLORIDE 0.9% 100 ML IV SCH ×4 (05:21→22:54)
[2020-06-25 05:53] LABS: Calcium 9.1 MG/DL (8.5-10.1); Osmolality,Calculated 340.4 MOS/KG (273-304)
[2020-06-25 05:58] LABS: Albumin 3.4 G/DL (3.4-5.0); Bilirubin,Direct 0.58 MG/DL (0.0-0.20); Bilirubin,Total 1.6 MG/DL (0.2-1.0); Total Protein 7.5 G/DL (6.4-8.3)
[2020-06-25] MEDS: hydrALAZINE 20 MG/1 ML VIAL IV PRN ×2 (06:32→14:15)
[2020-06-25 07:03] LABS: Basophils % 0.1 % (0.0-0.8); Hematocrit 27.8 VOL% (42.0-52.0); Hemoglobin 8.8 GM/DL (14.0-18.0); Immature Granulocytes % 0.9 %; Immature Granulocytes Absolute 0.14 #; Lymphocytes # 0.2 10*3/uL (1.4-4.0); Lymphocytes % 1.5 % (21.2-54.2); Mean Corpuscular HGB Conc 31.7 GM/DL (32-36); Mean Corpuscular Volume 94.2 FL (87-102); Mean Platelet Volume 12.7 FL (9.6-12.0); Monocytes % 1.2 % (1.7-12.7); NRBC # 0.02 10*3/uL; Neutrophils % 96.3 % (38.7-73.9); Red Blood Count 2.95 MC/CUMM (3.8-5.5); Red Cell Distribution Width 17.6 % (9.3-17.3); White Blood Count 15.5 T/CUMM (4-12)
[2020-06-25 07:04] LABS: Platelet Count 69 T/CUMM (130-400)
[2020-06-25 07:23] LABS: Hypochromasia 1+; Lymphocytes 1 % (20-55); Microcytosis 1+; Platelet Estimate Decreased; Segmented Neutrophils 99 % (50-85); Total Cells Counted 100
[2020-06-25] MEDS: PANTOPRAZOLE 40 MG VIAL IV SCH ×2 (08:10→20:03)
[2020-06-25] MEDS: POLYETHYLENE GLYCOL POWDER 17 GM PACK PO SCH (08:10)
[2020-06-25] MEDS: DOCUSATE SODIUM 100 MG/10 ML UDCUP PO SCH ×2 (08:10→20:03)
[2020-06-25] MEDS: MENTHOL/ZINC OXIDE OINT 71 GM JAR TOP SCH ×2 (08:11→20:03)
[2020-06-25] MEDS: CETIRIZINE 10 MG TABLET PO SCH (08:11)
[2020-06-25] MEDS: AMIODARONE 200 MG TABLET PO SCH ×2 (08:11→20:03)
[2020-06-25] MEDS: ASCORBIC ACID 500 MG TABLET PO SCH ×2 (08:11→20:03)
[2020-06-25] MEDS: CHOLECALCIFEROL 1,000 UNIT TABLET PO SCH (08:11)
[2020-06-25] MEDS: ZINC GLUCONATE 50 MG TABLET PO SCH (08:11)
[2020-06-25] MEDS: MORPHINE 4 MG/1 ML VIAL IV PRN (10:40)
[2020-06-25] MEDS: MANGANESE IV SCH (18:15)
[2020-06-25] MEDS: SELENIUM IV SCH (18:15)
[2020-06-25] MEDS: DEXT IV SCH (18:15)
[2020-06-25] MEDS: COPPER IV SCH (18:15)
[2020-06-25] MEDS: AMINO ACIDS IV SCH (18:15)
[2020-06-25] MEDS: LYTES IV SCH (18:15)
[2020-06-25] MEDS: ZINC IV SCH (18:15)
[2020-06-25] MEDS: MICAFUNGIN 100 MG in SODIUM CHLORIDE 0.9% 100 ML IV SCH (20:03)
[2020-06-25] MEDS: ATORVASTATIN 40 MG TABLET PO SCH (20:03)
[2020-06-25] MEDS ORDERED: METOPROLOL TARTRATE 5 MG/5 ML VIAL IV ONE (22:26)
[2020-06-26] MEDS: INSULIN REGULAR 100 UNIT/ML SUBCUT SCH ×4 (01:17→18:07)
[2020-06-26] MEDS: ALBUTEROL INHALER 18 GM INH SCH ×4 (01:18→18:07)
[2020-06-26] MEDS: METOCLOPRAMIDE 10 MG/2 ML VIAL IV SCH ×4 (01:18→18:07)
[2020-06-26] MEDS: carvediloL 6.25 MG TABLET PO SCH ×2 (01:18→12:33)
[2020-06-26] MEDS: ALBUMIN 25% 25 GM in PREMIX 1 EACH IV SCH (01:18)
[2020-06-26] MEDS: AMPICILLIN/SULBACTAM 3,000 MG in SODIUM CHLORIDE 0.9% 100 ML IV SCH ×3 (04:40→16:25)
[2020-06-26 04:58] LABS: Basophils % 0.1 % (0.0-0.8); Hematocrit 26.5 VOL% (42.0-52.0); Hemoglobin 8.5 GM/DL (14.0-18.0); Immature Granulocytes % 1.3 %; Immature Granulocytes Absolute 0.18 #; Lymphocytes # 0.4 10*3/uL (1.4-4.0); Lymphocytes % 3.2 % (21.2-54.2); Mean Corpuscular HGB Conc 32.1 GM/DL (32-36); Mean Corpuscular Volume 93.3 FL (87-102); Mean Platelet Volume 11.8 FL (9.6-12.0); NRBC # 0.02 10*3/uL; Neutrophils % 93.4 % (38.7-73.9); Red Blood Count 2.84 MC/CUMM (3.8-5.5); Red Cell Distribution Width 17.8 % (9.3-17.3); White Blood Count 13.5 T/CUMM (4-12)
[2020-06-26 05:00] LABS: Platelet Count 67 T/CUMM (130-400)
[2020-06-26 05:18] LABS: ABG Base Excess -6.6 MMOL/L (-2.5-2.5); ABG HCO3 18.3 MMOL/L (20-26); ABG Oxygen Saturation 90.1 % (95-100); ABG PCO2 34.3 MM HG (35-48); ABG PH 7.346 (7.35-7.45); ABG PO2 63.3 MM HG (80-95); ABG TCO2 19.4 MMOL/L (23-27); Allen Test Positive; Pt O2 Delivery Device Ventilator
[2020-06-26 05:21] LABS: Albumin 3.2 G/DL (3.4-5.0); Bilirubin,Total 0.9 MG/DL (0.2-1.0); Calcium 8.9 MG/DL (8.5-10.1); Osmolality,Calculated 338.6 MOS/KG (273-304); Total Protein 7.5 G/DL (6.4-8.3)
[2020-06-26 05:22] LABS: Hypochromasia 1+; Lymphocytes 1 % (20-55); Microcytosis 1+; Ovalocytes Slight; Platelet Estimate Decreased; Segmented Neutrophils 98 % (50-85); Total Cells Counted 100
[2020-06-26] MEDS: MENTHOL/ZINC OXIDE OINT 71 GM JAR TOP SCH ×2 (09:16→20:16)
[2020-06-26] MEDS: AMIODARONE 200 MG TABLET PO SCH ×2 (09:17→20:16)
[2020-06-26] MEDS: ZINC GLUCONATE 50 MG TABLET PO SCH (09:17)
[2020-06-26] MEDS: PANTOPRAZOLE 40 MG VIAL IV SCH ×2 (09:17→20:16)
[2020-06-26] MEDS: CETIRIZINE 10 MG TABLET PO SCH (09:17)
[2020-06-26] MEDS: CHOLECALCIFEROL 1,000 UNIT TABLET PO SCH (09:17)
[2020-06-26] MEDS: POLYETHYLENE GLYCOL POWDER 17 GM PACK PO SCH (09:17)
[2020-06-26] MEDS: ASCORBIC ACID 500 MG TABLET PO SCH ×2 (09:17→20:15)
[2020-06-26] MEDS: DOCUSATE SODIUM 100 MG/10 ML UDCUP PO SCH ×2 (09:17→20:16)
[2020-06-26] MEDS ORDERED: VANCOMYCIN INJ 1,000 MG in SODIUM CHLORIDE 0.9% 250 ML IV ONE (14:00)
[2020-06-26] MEDS: ZINC/COPPER/MANGANESE/SELENIUM 1 ML, MULTIVITAMIN INJ 10 ML in AMINO ACIDS/DEXT/LYTES 5... IV SCH (17:38)
[2020-06-26] MEDS: ATORVASTATIN 40 MG TABLET PO SCH (20:16)
[2020-06-26] MEDS: MICAFUNGIN 100 MG in SODIUM CHLORIDE 0.9% 100 ML IV SCH (20:17)
[2020-06-27] MEDS: AMPICILLIN/SULBACTAM 3,000 MG in SODIUM CHLORIDE 0.9% 100 ML IV SCH ×5 (00:05→22:05)
[2020-06-27] MEDS: INSULIN REGULAR 100 UNIT/ML SUBCUT SCH ×4 (00:25→18:10)
[2020-06-27] MEDS: ALBUTEROL INHALER 18 GM INH SCH ×4 (00:26→18:10)
[2020-06-27] MEDS: METOCLOPRAMIDE 10 MG/2 ML VIAL IV SCH ×4 (00:26→18:10)
[2020-06-27] MEDS: carvediloL 6.25 MG TABLET PO SCH (02:59)
[2020-06-27 04:09] LABS: Allen Test Positive; Pt O2 Delivery Device Ventilator
[2020-06-27 04:38] LABS: ABG Base Excess -7.1 MMOL/L (-2.5-2.5); ABG HCO3 18.8 MMOL/L (20-26); ABG Oxygen Saturation 83.7 % (95-100); ABG PCO2 39.4 MM HG (35-48); ABG PH 7.297 (7.35-7.45)
[2020-06-27 05:26] LABS: Basophils % 0.1 % (0.0-0.8); Eosinophils % 0.2 % (0.00-10.9); Hematocrit 23.3 VOL% (42.0-52.0); Hemoglobin 7.5 GM/DL (14.0-18.0); Immature Granulocytes % 0.8 %; Lymphocytes # 0.2 10*3/uL (1.4-4.0); Lymphocytes % 1.5 % (21.2-54.2); Mean Corpuscular HGB Conc 32.2 GM/DL (32-36); Mean Corpuscular Volume 93.6 FL (87-102); Mean Platelet Volume 11.6 FL (9.6-12.0); Monocytes % 0.6 % (1.7-12.7); Neutrophils % 96.8 % (38.7-73.9); Red Blood Count 2.49 MC/CUMM (3.8-5.5); Red Cell Distribution Width 17.8 % (9.3-17.3)
[2020-06-27 05:27] LABS: Platelet Count 66 T/CUMM (130-400)
[2020-06-27 05:33] LABS: Calcium 8.7 MG/DL (8.5-10.1); Osmolality,Calculated 336.4 MOS/KG (273-304)
[2020-06-27 06:11] LABS: Band Neutrophils 1 % (0-10); Hypochromasia 1+; Lymphocytes 3 % (20-55); Platelet Estimate Decreased; Segmented Neutrophils 96 % (50-85); Total Cells Counted 100
[2020-06-27] MEDS ORDERED: SODIUM CHLORIDE 0.9% 1,000 ML IV PRN (06:57)
[2020-06-27] MEDS ORDERED: FUROSEMIDE 20 MG/2 ML VIAL IV PRN (06:57)
[2020-06-27] MEDS: MENTHOL/ZINC OXIDE OINT 71 GM JAR TOP SCH ×2 (09:40→20:22)
[2020-06-27] MEDS: DOCUSATE SODIUM 100 MG/10 ML UDCUP PO SCH ×2 (09:41→20:23)
[2020-06-27] MEDS: ASCORBIC ACID 500 MG TABLET PO SCH ×2 (09:41→20:22)
[2020-06-27] MEDS: POLYETHYLENE GLYCOL POWDER 17 GM PACK PO SCH (09:42)
[2020-06-27] MEDS: ZINC GLUCONATE 50 MG TABLET PO SCH (09:42)
[2020-06-27] MEDS: CHOLECALCIFEROL 1,000 UNIT TABLET PO SCH (09:42)
[2020-06-27] MEDS: CETIRIZINE 10 MG TABLET PO SCH (09:42)
[2020-06-27] MEDS: AMIODARONE 200 MG TABLET PO SCH ×2 (09:42→20:22)
[2020-06-27] MEDS: PANTOPRAZOLE 40 MG VIAL IV SCH ×2 (09:43→20:22)
[2020-06-27] MEDS: NOREPINEPHRINE 8 MG in SODIUM CHLORIDE 0.9% 242 ML IV PRN ×2 (09:50→17:09)
[2020-06-27] MEDS ORDERED: FUROSEMIDE 20 MG/2 ML VIAL IV ONE (13:46)
[2020-06-27] MEDS: LYTES IV SCH (17:17)
[2020-06-27] MEDS: MANGANESE IV SCH (17:17)
[2020-06-27] MEDS: COPPER IV SCH (17:17)
[2020-06-27] MEDS: AMINO ACIDS IV SCH (17:17)
[2020-06-27] MEDS: DEXT IV SCH (17:17)
[2020-06-27] MEDS: ZINC IV SCH (17:17)
[2020-06-27] MEDS: SELENIUM IV SCH (17:17)
[2020-06-27] MEDS: ATORVASTATIN 40 MG TABLET PO SCH (20:22)
[2020-06-27] MEDS: MICAFUNGIN 100 MG in SODIUM CHLORIDE 0.9% 100 ML IV SCH (20:24)
[2020-06-27] MEDS: MORPHINE 4 MG/1 ML VIAL IV PRN (22:06)
[2020-06-28] MEDS: INSULIN REGULAR 100 UNIT/ML SUBCUT SCH ×4 (00:09→17:46)
[2020-06-28] MEDS: METOCLOPRAMIDE 10 MG/2 ML VIAL IV SCH ×4 (00:33→18:19)
[2020-06-28] MEDS: NOREPINEPHRINE 8 MG in SODIUM CHLORIDE 0.9% 242 ML IV PRN ×4 (00:33→12:20)
[2020-06-28] MEDS: ALBUTEROL INHALER 18 GM INH SCH ×4 (00:34→18:19)
[2020-06-28] MEDS ORDERED: AMIODARONE 150 MG/3 ML VIAL ONE ×2 (04:13→04:15)
[2020-06-28] MEDS ORDERED: AMIODARONE INJ 450 MG in DEXTROSE 5% 241 ML IV SCH (04:30)
[2020-06-28 04:35] LABS: Basophils % 0.1 % (0.0-0.8); Eosinophils % 0.3 % (0.00-10.9); Hematocrit 27.5 VOL% (42.0-52.0); Hemoglobin 8.8 GM/DL (14.0-18.0); Immature Granulocytes % 1.3 %; Immature Granulocytes Absolute 0.17 #; Lymphocytes # 0.2 10*3/uL (1.4-4.0); Lymphocytes % 1.2 % (21.2-54.2); Mean Corpuscular Volume 92.9 FL (87-102); Mean Platelet Volume 12.7 FL (9.6-12.0); Monocytes % 0.9 % (1.7-12.7); NRBC # 0.02 10*3/uL; Neutrophils % 96.2 % (38.7-73.9); Red Blood Count 2.96 MC/CUMM (3.8-5.5); Red Cell Distribution Width 18.6 % (9.3-17.3); White Blood Count 12.8 T/CUMM (4-12)
[2020-06-28 04:39] LABS: Platelet Count 71 T/CUMM (130-400)
[2020-06-28 04:51] LABS: Albumin 2.3 G/DL (3.4-5.0); Bilirubin,Direct 1.34 MG/DL (0.0-0.20); Bilirubin,Indirect 0.5 MG/DL (0.0-1.0); Bilirubin,Total 1.8 MG/DL (0.2-1.0); Total Protein 7.2 G/DL (6.4-8.3)
[2020-06-28 04:53] LABS: Calcium 8.8 MG/DL (8.5-10.1); Osmolality,Calculated 333.6 MOS/KG (273-304)
[2020-06-28 04:53] LABS: ABG Base Excess -8.9 MMOL/L (-2.5-2.5); ABG HCO3 18.4 MMOL/L (20-26); ABG Oxygen Saturation 84.2 % (95-100); ABG PCO2 45.4 MM HG (35-48); ABG PH 7.225 (7.35-7.45); ABG PO2 55.1 MM HG (80-95); ABG TCO2 19.8 MMOL/L (23-27); Allen Test Positive; Pt O2 Delivery Device Ventilator
[2020-06-28 05:02] LABS: Band Neutrophils 3 % (0-10); Hypochromasia 1+; Microcytosis 1+; Platelet Estimate Decreased; Segmented Neutrophils 96 % (50-85); Total Cells Counted 100
[2020-06-28] MEDS: AMPICILLIN/SULBACTAM 3,000 MG in SODIUM CHLORIDE 0.9% 100 ML IV SCH ×3 (05:18→18:19)
[2020-06-28] MEDS ORDERED: SUCCINYLCHOLINE 200 MG/10 ML VIAL ONE (08:18)
[2020-06-28] MEDS ORDERED: NOREPINEPHRINE 4 MG/4 ML VIAL IV ONE (08:21)
[2020-06-28] MEDS ORDERED: PHENYLEPHRINE DRIP 40 MG/250 ML PREMIX IV ONE (08:40)
[2020-06-28] MEDS: PHENYLEPHRINE DRIP 40 MG/250 ML PREMIX IV PRN (08:45)
[2020-06-28] MEDS ORDERED: PHENYLEPHRINE INJ 160 MG in SODIUM CHLORIDE 0.9% 234 ML IV PRN (09:00)
[2020-06-28] MEDS ORDERED: FUROSEMIDE 40 MG/4 ML VIAL IV ONE (09:56)
[2020-06-28] MEDS: PANTOPRAZOLE 40 MG VIAL IV SCH ×2 (10:08→22:00)
[2020-06-28] MEDS: POLYETHYLENE GLYCOL POWDER 17 GM PACK PO SCH (10:08)
[2020-06-28] MEDS: CHOLECALCIFEROL 1,000 UNIT TABLET PO SCH (10:08)
[2020-06-28] MEDS: CETIRIZINE 10 MG TABLET PO SCH (10:09)
[2020-06-28] MEDS: ZINC GLUCONATE 50 MG TABLET PO SCH (10:09)
[2020-06-28] MEDS: DOCUSATE SODIUM 100 MG/10 ML UDCUP PO SCH ×2 (10:09→21:59)
[2020-06-28] MEDS: ASCORBIC ACID 500 MG TABLET PO SCH ×2 (10:09→21:59)
[2020-06-28] MEDS: MENTHOL/ZINC OXIDE OINT 71 GM JAR TOP SCH ×2 (10:09→23:18)
[2020-06-28] MEDS: AMIODARONE 200 MG TABLET PO SCH (11:23)
[2020-06-28] MEDS ORDERED: PHENYLEPHRINE DRIP 40 MG/250 ML PREMIX IV PRN (13:42)
[2020-06-28] MEDS: AMIODARONE INJ 450 MG in DEXTROSE 5% 241 ML IV SCH (13:57)
[2020-06-28 14:59] LABS: ABG Base Excess -10.4 MMOL/L (-2.5-2.5); ABG HCO3 16.1 MMOL/L (20-26); ABG Oxygen Saturation 94.9 % (95-100); ABG PCO2 39.6 MM HG (35-48); ABG PH 7.231 (7.35-7.45); ABG PO2 85.8 MM HG (80-95); ABG TCO2 15.5 MMOL/L (23-27); Pt O2 Delivery Device Ventilator
[2020-06-28] MEDS: NOREPINEPHRINE 16 MG in SODIUM CHLORIDE 0.9% 234 ML IV PRN ×2 (15:59→22:41)
[2020-06-28] MEDS: DEXAMETHASONE 4 MG/1 ML VIAL IV SCH (17:00)
[2020-06-28] MEDS: ZINC/COPPER/MANGANESE/SELENIUM 1 ML, MULTIVITAMIN INJ 10 ML in AMINO ACIDS/DEXT/LYTES 5... IV SCH (18:18)
[2020-06-28 19:17] LABS: INR 2.3
[2020-06-28 19:49] LABS: PT Patient Result 23.9 SECS (9.8-11.9)
[2020-06-28] MEDS: ATORVASTATIN 40 MG TABLET PO SCH (21:59)
[2020-06-28] MEDS: MICAFUNGIN 100 MG in SODIUM CHLORIDE 0.9% 100 ML IV SCH (21:59)
[2020-06-29] MEDS: INSULIN REGULAR 100 UNIT/ML SUBCUT SCH ×4 (01:06→18:14)
[2020-06-29] MEDS: AMPICILLIN/SULBACTAM 3,000 MG in SODIUM CHLORIDE 0.9% 100 ML IV SCH ×4 (01:07→18:14)
[2020-06-29] MEDS: METOCLOPRAMIDE 10 MG/2 ML VIAL IV SCH ×4 (01:07→18:13)
[2020-06-29] MEDS: ALBUTEROL INHALER 18 GM INH SCH ×4 (02:00→18:16)
[2020-06-29 03:12] LABS: ABG Base Excess -10.9 MMOL/L (-2.5-2.5); ABG Oxygen Saturation 98.1 % (95-100); ABG PCO2 39.7 MM HG (35-48); ABG PH 7.223 (7.35-7.45); ABG PO2 153.4 MM HG (80-95); ABG TCO2 17.2 MMOL/L (23-27)
[2020-06-29 05:00] LABS: Basophils % 0.1 % (0.0-0.8); Hematocrit 25.1 VOL% (42.0-52.0); Hemoglobin 8.2 GM/DL (14.0-18.0); Immature Granulocytes % 1.1 %; Immature Granulocytes Absolute 0.15 #; Lymphocytes # 0.4 10*3/uL (1.4-4.0); Lymphocytes % 2.5 % (21.2-54.2); Mean Corpuscular HGB Conc 32.7 GM/DL (32-36); Mean Platelet Volume 11.9 FL (9.6-12.0); Monocytes % 1.6 % (1.7-12.7); Neutrophils % 94.7 % (38.7-73.9); Red Blood Count 2.79 MC/CUMM (3.8-5.5); Red Cell Distribution Width 18.5 % (9.3-17.3); White Blood Count 14.1 T/CUMM (4-12)
[2020-06-29 05:01] LABS: Platelet Count 70 T/CUMM (130-400)
[2020-06-29 05:08] LABS: INR 2.6; PT Patient Result 26.9 SECS (9.8-11.9)
[2020-06-29 05:22] LABS: Band Neutrophils 2 % (0-10); Burr Cells Slight; Hypochromasia 1+; Lymphocytes 3 % (20-55); Microcytosis 1+; Ovalocytes Slight; Platelet Estimate Decreased; Segmented Neutrophils 93 % (50-85); Total Cells Counted 100
[2020-06-29 05:30] LABS: Albumin 2.1 G/DL (3.4-5.0); Calcium 8.9 MG/DL (8.5-10.1); Osmolality,Calculated 330.1 MOS/KG (273-304); Total Protein 7.6 G/DL (6.4-8.3)
[2020-06-29] MEDS: NOREPINEPHRINE 16 MG in SODIUM CHLORIDE 0.9% 234 ML IV PRN ×2 (08:06→20:06)
[2020-06-29] MEDS: CHOLECALCIFEROL 1,000 UNIT TABLET PO SCH (08:08)
[2020-06-29] MEDS: MENTHOL/ZINC OXIDE OINT 71 GM JAR TOP SCH ×2 (08:08→21:28)
[2020-06-29] MEDS: CETIRIZINE 10 MG TABLET PO SCH (08:08)
[2020-06-29] MEDS: DOCUSATE SODIUM 100 MG/10 ML UDCUP PO SCH ×2 (08:08→20:49)
[2020-06-29] MEDS: POLYETHYLENE GLYCOL POWDER 17 GM PACK PO SCH (08:08)
[2020-06-29] MEDS: ASCORBIC ACID 500 MG TABLET PO SCH ×2 (08:08→20:50)
[2020-06-29] MEDS: PANTOPRAZOLE 40 MG VIAL IV SCH ×2 (08:09→21:29)
[2020-06-29] MEDS: ZINC GLUCONATE 50 MG TABLET PO SCH (08:20)
[2020-06-29] MEDS: PHYTONADIONE 10 MG/1 ML AMP SUBCUT SCH (10:50)
[2020-06-29] MEDS ORDERED: SODIUM BICARBONATE 50 MEQ/50 ML VIAL IV ONE (14:42)
[2020-06-29] MEDS: AMIODARONE INJ 450 MG in DEXTROSE 5% 241 ML IV SCH (15:00)
[2020-06-29] MEDS ORDERED: SODIUM BICARBONATE 50 MEQ/50 ML SYRINGE IV ONE (16:59)
[2020-06-29] MEDS: DEXAMETHASONE 4 MG/1 ML VIAL IV SCH (17:04)
[2020-06-29] MEDS: DEXT IV SCH (18:14)
[2020-06-29] MEDS: SELENIUM IV SCH (18:14)
[2020-06-29] MEDS: LYTES IV SCH (18:14)
[2020-06-29] MEDS: ZINC IV SCH (18:14)
[2020-06-29] MEDS: MANGANESE IV SCH (18:14)
[2020-06-29] MEDS: COPPER IV SCH (18:14)
[2020-06-29] MEDS: AMINO ACIDS IV SCH (18:14)
[2020-06-29 19:02] VITALS: BP 106/57
[2020-06-29] MEDS: ATORVASTATIN 40 MG TABLET PO SCH (20:50)
[2020-06-30] MEDS: INSULIN REGULAR 100 UNIT/ML SUBCUT SCH ×4 (01:40→18:05)
[2020-06-30] MEDS: AMPICILLIN/SULBACTAM 3,000 MG in SODIUM CHLORIDE 0.9% 100 ML IV SCH ×4 (01:40→18:07)
[2020-06-30] MEDS: METOCLOPRAMIDE 10 MG/2 ML VIAL IV SCH ×4 (01:40→18:05)
[2020-06-30] MEDS: AMIODARONE INJ 450 MG in DEXTROSE 5% 241 ML IV SCH ×2 (01:41→10:34)
[2020-06-30] MEDS: ALBUTEROL INHALER 18 GM INH SCH ×4 (01:41→18:08)
[2020-06-30 03:34] LABS: ABG Base Excess -9.8 MMOL/L (-2.5-2.5); ABG HCO3 16.3 MMOL/L (20-26); ABG Oxygen Saturation 85.7 % (95-100); ABG PCO2 45.9 MM HG (35-48); ABG PO2 60.3 MM HG (80-95); ABG TCO2 17.1 MMOL/L (23-27)
[2020-06-30 04:08] LABS: ABG PH 7.198 (7.35-7.45)
[2020-06-30 04:58] LABS: Basophils % 0.1 % (0.0-0.8); Hematocrit 24.3 VOL% (42.0-52.0); Immature Granulocytes % 0.7 %; Immature Granulocytes Absolute 0.08 #; Lymphocytes # 0.5 10*3/uL (1.4-4.0); Lymphocytes % 4.5 % (21.2-54.2); Mean Corpuscular HGB Conc 32.9 GM/DL (32-36); Mean Corpuscular Volume 89.7 FL (87-102); Mean Platelet Volume 12.4 FL (9.6-12.0); Monocytes % 1.8 % (1.7-12.7); Neutrophils % 92.9 % (38.7-73.9); Platelet Count 57 T/CUMM (130-400); Red Blood Count 2.71 MC/CUMM (3.8-5.5); Red Cell Distribution Width 18.9 % (9.3-17.3)
[2020-06-30 05:17] LABS: INR 2.4
[2020-06-30 05:18] LABS: Bilirubin,Total 1.6 MG/DL (0.2-1.0); Calcium 8.9 MG/DL (8.5-10.1); Ferritin 1963.8 ng/ml (26-388); Osmolality,Calculated 332.3 MOS/KG (273-304); Total Protein 7.6 G/DL (6.4-8.3)
[2020-06-30 05:48] LABS: Band Neutrophils 3 % (0-10); Hypochromasia 1+; Lymphocytes 3 % (20-55); Segmented Neutrophils 92 % (50-85); Total Cells Counted 100
[2020-06-30 05:49] LABS: Burr Cells Few; Microcytosis 1+; Target Cells Slight
[2020-06-30 05:50] LABS: PT Patient Result 24.5 SECS (9.8-11.9); Platelet Estimate Decreased
[2020-06-30] MEDS ORDERED: SODIUM BICARBONATE 50 MEQ/50 ML VIAL IV ONE (07:09)
[2020-06-30] MEDS: MENTHOL/ZINC OXIDE OINT 71 GM JAR TOP SCH ×2 (09:28→20:23)
[2020-06-30] MEDS: PANTOPRAZOLE 40 MG VIAL IV SCH ×2 (09:28→20:23)
[2020-06-30] MEDS: PHYTONADIONE 10 MG/1 ML AMP SUBCUT SCH (09:29)
[2020-06-30] MEDS: NOREPINEPHRINE 16 MG in SODIUM CHLORIDE 0.9% 234 ML IV PRN (09:30)
[2020-06-30] MEDS: DOCUSATE SODIUM 100 MG/10 ML UDCUP PO SCH ×2 (10:25→20:23)
[2020-06-30] MEDS: POLYETHYLENE GLYCOL POWDER 17 GM PACK PO SCH (10:26)
[2020-06-30] MEDS: ZINC GLUCONATE 50 MG TABLET PO SCH (10:26)
[2020-06-30] MEDS: ASCORBIC ACID 500 MG TABLET PO SCH ×2 (10:26→20:23)
[2020-06-30] MEDS: CHOLECALCIFEROL 1,000 UNIT TABLET PO SCH (10:26)
[2020-06-30] MEDS: CETIRIZINE 10 MG TABLET PO SCH (10:27)
[2020-06-30] MEDS: DEXAMETHASONE 4 MG/1 ML VIAL IV SCH (15:19)
[2020-06-30] MEDS: ZINC/COPPER/MANGANESE/SELENIUM 1 ML, MULTIVITAMIN INJ 10 ML in AMINO ACIDS/DEXT/LYTES 5... IV SCH (18:06)
[2020-06-30] MEDS: ATORVASTATIN 40 MG TABLET PO SCH (20:23)
[2020-07-01] MEDS: METOCLOPRAMIDE 10 MG/2 ML VIAL IV SCH ×3 (00:51→12:52)
[2020-07-01] MEDS: INSULIN REGULAR 100 UNIT/ML SUBCUT SCH ×4 (00:51→17:11)
[2020-07-01] MEDS: AMPICILLIN/SULBACTAM 3,000 MG in SODIUM CHLORIDE 0.9% 100 ML IV SCH ×4 (00:52→18:54)
[2020-07-01] MEDS: ALBUTEROL INHALER 18 GM INH SCH ×3 (01:37→12:52)
[2020-07-01] MEDS: AMIODARONE INJ 450 MG in DEXTROSE 5% 241 ML IV SCH ×2 (03:43→20:33)
[2020-07-01 04:10] LABS: ABG Base Excess -9.3 MMOL/L (-2.5-2.5); ABG HCO3 16.8 MMOL/L (20-26); ABG Oxygen Saturation 89.6 % (95-100); ABG PCO2 39.8 MM HG (35-48); ABG PH 7.248 (7.35-7.45); ABG PO2 66.8 MM HG (80-95); ABG TCO2 16.5 MMOL/L (23-27); Allen Test Positive; Pt O2 Delivery Device Ventilator
[2020-07-01 05:07] LABS: Basophils % 0.1 % (0.0-0.8); Hematocrit 22.4 VOL% (42.0-52.0); Hemoglobin 7.4 GM/DL (14.0-18.0); Immature Granulocytes % 0.9 %; Lymphocytes # 0.7 10*3/uL (1.4-4.0); Lymphocytes % 6.5 % (21.2-54.2); Mean Corpuscular Volume 89.6 FL (87-102); Mean Platelet Volume 11.4 FL (9.6-12.0); Monocytes % 2.5 % (1.7-12.7); Platelet Count 60 T/CUMM (130-400); Red Cell Distribution Width 19.2 % (9.3-17.3); White Blood Count 10.8 T/CUMM (4-12)
[2020-07-01 05:15] LABS: Albumin 1.8 G/DL (3.4-5.0); Bilirubin,Total 1.7 MG/DL (0.2-1.0); Calcium 8.7 MG/DL (8.5-10.1); Osmolality,Calculated 335.3 MOS/KG (273-304); Total Protein 7.7 G/DL (6.4-8.3)
[2020-07-01 05:21] LABS: INR 2.3; PT Patient Result 23.4 SECS (9.8-11.9)
[2020-07-01] MEDS ORDERED: FUROSEMIDE 100 MG/10 ML VIAL IV ONE (07:37)
[2020-07-01] MEDS: DOCUSATE SODIUM 100 MG/10 ML UDCUP PO SCH ×2 (08:28→08:53)
[2020-07-01] MEDS: MENTHOL/ZINC OXIDE OINT 71 GM JAR TOP SCH ×2 (08:28→20:33)
[2020-07-01] MEDS: ZINC GLUCONATE 50 MG TABLET PO SCH ×2 (08:29→08:54)
[2020-07-01] MEDS: CETIRIZINE 10 MG TABLET PO SCH ×2 (08:29→08:56)
[2020-07-01] MEDS: ASCORBIC ACID 500 MG TABLET PO SCH ×2 (08:29→08:54)
[2020-07-01] MEDS: CHOLECALCIFEROL 1,000 UNIT TABLET PO SCH ×2 (08:29→08:54)
[2020-07-01] MEDS: PANTOPRAZOLE 40 MG VIAL IV SCH ×2 (08:30→21:42)
[2020-07-01] MEDS: POLYETHYLENE GLYCOL POWDER 17 GM PACK PO SCH ×2 (08:30→08:54)
[2020-07-01] MEDS: PHYTONADIONE 10 MG/1 ML AMP SUBCUT SCH (08:31)
[2020-07-01 09:07] LABS: Lymphocytes 5 % (20-55); Nucleated Red Blood Cells 1 (0-5); Platelet Estimate Decreased; Segmented Neutrophils 94 % (50-85); Total Cells Counted 100
[2020-07-01 09:08] LABS: Burr Cells 1+; Microcytosis 1+
[2020-07-01 09:09] LABS: Spherocytes Slight
[2020-07-01] MEDS: DEXAMETHASONE 4 MG/1 ML VIAL IV SCH (15:23)
[2020-07-01] MEDS ORDERED: ALBUMIN 25% 12.5 GM in PREMIX 1 EACH IV SCH ×2 (16:00→17:00)
[2020-07-01] MEDS: FUROSEMIDE 40 MG/4 ML VIAL IV SCH (16:13)
[2020-07-01] MEDS: AMINO ACIDS IV SCH (17:00)
[2020-07-01] MEDS: DEXT IV SCH (17:00)
[2020-07-01] MEDS: SELENIUM IV SCH (17:00)
[2020-07-01] MEDS: MANGANESE IV SCH (17:00)
[2020-07-01] MEDS: LYTES IV SCH (17:00)
[2020-07-01] MEDS: ZINC IV SCH (17:00)
[2020-07-01] MEDS: COPPER IV SCH (17:00)
[2020-07-01] MEDS: ALBUMIN 25% 12.5 GM in PREMIX 1 EACH IV SCH (17:20)
[2020-07-01] MEDS: ATORVASTATIN 40 MG TABLET PO SCH (20:34)
[2020-07-02] MEDS ORDERED: EPINEPHrine 1 MG/10 ML SYRINGE ONE ×3 (00:25→23:22)
[2020-07-02] MEDS: AMPICILLIN/SULBACTAM 3,000 MG in SODIUM CHLORIDE 0.9% 100 ML IV SCH ×4 (00:34→18:35)
[2020-07-02] MEDS: FUROSEMIDE 40 MG/4 ML VIAL IV SCH ×2 (00:34→09:15)
[2020-07-02] MEDS: INSULIN REGULAR 100 UNIT/ML SUBCUT SCH ×4 (00:36→18:35)
[2020-07-02] MEDS: ALBUMIN 25% 12.5 GM in PREMIX 1 EACH IV SCH (02:00)
[2020-07-02 03:49] LABS: ABG Base Excess -12.4 MMOL/L (-2.5-2.5); ABG HCO3 14.9 MMOL/L (20-26); ABG Oxygen Saturation 98.2 % (95-100); ABG PCO2 40.5 MM HG (35-48); ABG PO2 154.9 MM HG (80-95); ABG TCO2 16.2 MMOL/L (23-27); Allen Test Positive; Pt O2 Delivery Device Ventilator
[2020-07-02 04:16] LABS: ABG PH 7.184 (7.35-7.45)
[2020-07-02 04:54] LABS: Basophils % 0.1 % (0.0-0.8); Hematocrit 20.8 VOL% (42.0-52.0); Hemoglobin 6.6 GM/DL (14.0-18.0); Lymphocytes # 0.7 10*3/uL (1.4-4.0); Lymphocytes % 6.7 % (21.2-54.2); Mean Corpuscular HGB Conc 31.7 GM/DL (32-36); Mean Corpuscular Volume 91.6 FL (87-102); Mean Platelet Volume 12.8 FL (9.6-12.0); Monocytes % 2.7 % (1.7-12.7); NRBC # 0.03 10*3/uL; Neutrophils % 89.5 % (38.7-73.9); Platelet Count 48 T/CUMM (130-400); Red Blood Count 2.27 MC/CUMM (3.8-5.5); Red Cell Distribution Width 19.4 % (9.3-17.3); White Blood Count 9.7 T/CUMM (4-12)
[2020-07-02 05:10] LABS: Albumin 2.1 G/DL (3.4-5.0); Bilirubin,Total 1.9 MG/DL (0.2-1.0); Calcium 8.8 MG/DL (8.5-10.1); Osmolality,Calculated 336.5 MOS/KG (273-304); Total Protein 7.5 G/DL (6.4-8.3)
[2020-07-02 05:15] LABS: INR 1.7
[2020-07-02 07:11] LABS: Band Neutrophils 2 % (0-10); Burr Cells 1+; Lymphocytes 11 % (20-55); Segmented Neutrophils 87 % (50-85); Total Cells Counted 100
[2020-07-02 07:12] LABS: Hypochromasia Slight; Microcytosis Slight; Platelet Estimate Decreased; Spherocytes Few
[2020-07-02] MEDS: PANTOPRAZOLE 40 MG VIAL IV SCH ×2 (09:11→21:53)
[2020-07-02] MEDS: MENTHOL/ZINC OXIDE OINT 71 GM JAR TOP SCH ×2 (09:15→21:53)
[2020-07-02] MEDS: ZINC GLUCONATE 50 MG TABLET PO SCH (09:16)
[2020-07-02] MEDS: AMIODARONE INJ 450 MG in DEXTROSE 5% 241 ML IV SCH (10:22)
[2020-07-02] MEDS ORDERED: SODIUM BICARB INJ 100 MEQ in DEXTROSE 10% 1,000 ML IV PRN (11:21)
[2020-07-02] MEDS ORDERED: VANCOMYCIN INJ 1,000 MG in SODIUM CHLORIDE 0.9% 250 ML IV PRN (11:51)
[2020-07-02] MEDS: DEXAMETHASONE 4 MG/1 ML VIAL IV SCH (16:02)
[2020-07-02] MEDS ORDERED: SODIUM BICARBONATE 50 MEQ/50 ML SYRINGE IV ONE (20:42)
[2020-07-03] MEDS ORDERED: EPINEPHrine 1 MG/10 ML SYRINGE ONE (00:25)
== END 2020-07-03 00:35 | disposition expired | DRG 207 ==
LOC: EDBD → EDUNIT# → N.ED 01:05 → N.EDINP 03:46 → SUATTDRO 03:46 → N.CC 08:05
PROVIDERS: ADMIT Internal Medicine; ATTEND Internal Medicine